=== PATIENT | female | born 1990 | race Caucasian/White ===

== ENCOUNTER 2020-10-17 01:27 | Outpatient (CLI) | payer BC, SELFPAY ==
[2020-10-17 19:22] LABS: SARS-CoV-2 RNA PCR Negative
== END 2020-10-17 01:28 | disposition home or self-care (01) ==
LOC: ANHCOVIDDT 01:28
PROVIDERS: Visit Provider Obstetrics & Gynecology
DX: Z01.812 Encounter for preprocedural laboratory examination (principal); Z20.822 Contact with and (suspected) exposure to COVID-19
CPT/HCPCS: C9803; U0003; U0005

== ENCOUNTER 2020-10-19 10:28 | Outpatient (CLI) | payer BC, SELFPAY ==
--- NOTE | 2020-10-19 11:30 | NEURO_ITS ---
Impression: # Complains of numbness of hands. # No Carpal Tunnel Syndrome. # No ulnar neuropathy. # Normal nerve conduction study. # Clinical correlation recommended. Nerve Conduction Studies Anti Sensory Summary Table Stim Site NR Peak (ms) P-T Amp (?V) Site1 Site2 Delta-P (ms) Dist (cm) Loco (m/s) Left Median Anti Sensory (2-3nd Digit) Wrist 2.3 55.7 Wrist 2-3nd Digit 2.3 14.0 61 Wrist 2.4 59.7 Wrist 2-3nd Digit 2.3 14.0 61 Right Median Anti Sensory (2-3nd Digit) Wrist 2.3 76.1 Wrist 2-3nd Digit 2.3 14.0 61 Wrist 2.5 63.7 Wrist 2-3nd Digit 2.3 14.0 61 Left Radial Anti Sensory (Base 1st Digit) Wrist 1.7 58.6 Wrist Base 1st Digit 1.7 0.0 Right Radial Anti Sensory (Base 1st Digit) Wrist 1.6 28.9 Wrist Base 1st Digit 1.6 0.0 Left Ulnar Anti Sensory (5th Digit) Wrist 2.3 67.6 Wrist 5th Digit 2.3 14.0 61 Right Ulnar Anti Sensory (5th Digit) Wrist 2.3 87.5 Wrist 5th Digit 2.3 14.0 61 Motor Summary Table Stim Site NR Onset (ms) O-P Amp (mV) Site1 Site2 Delta-0 (ms) Dist (cm) Loco (m/s) Left Median Motor (Abd Poll Brev) Wrist 2.3 6.3 Elbow Wrist 4.3 26.0 60 Elbow 6.6 4.2 Right Median Motor (Abd Poll Brev) Wrist 2.9 2.8 Elbow Wrist 3.8 24.0 63 Elbow 6.7 10.5 Left Ulnar Motor (Abd Dig Minimi) Wrist 2.2 11.2 A Elbow Wrist 4.1 25.0 61 A Elbow 6.3 10.4 Right Ulnar Motor (Abd Dig Minimi) Wrist 2.6 10.7 A Elbow Wrist 4.2 25.0 60 A Elbow 6.8 10.1 F Wave Studies NR F-Lat (ms) L-R F-Lat (ms) Left Median (Mrkrs) (Abd Poll Brev) 25.37 0.59 Right Median (Mrkrs) (Abd Poll Brev) 25.96 0.59 Left Ulnar (Mrkrs) (Abd Dig Min) 24.56 0.00 Right Ulnar (Mrkrs) (Abd Dig Min) 24.56 0.00 EMG Side Muscle Nerve Root Ins Act Fibs Amp Dur Recrt Comment Right 1stDorInt Ulnar C8-T1 Nml Nml Nml Nml Nml Right Ext Indicis Radial (Post Int) C7-8 Nml Nml Nml Nml Nml Right Ext Digitorum Radial (Post Int) C7-8 Nml Nml Nml Nml Nml Right BrachioRad Radial C5-6 Nml Nml Nml Nml Nml Right PronatorTeres Median C6-7 Nml Nml Nml Nml Nml Right Abd Poll Brev Median C8-T1 Nml Nml Nml Nml Nml Left 1stDorInt Ulnar C8-T1 Nml Nml Nml Nml Nml Left Ext Indicis Radial (Post Int) C7-8 Nml Nml Nml Nml Nml Left Ext Digitorum Radial (Post Int) C7-8 Nml Nml Nml Nml Nml Left BrachioRad Radial C5-6 Nml Nml Nml Nml Nml Left PronatorTeres Median C6-7 Nml Nml Nml Nml Nml Left Abd Poll Brev Median C8-T1 Nml Nml Nml Nml Nml MTDD
== END 2020-10-19 10:29 | disposition home or self-care (01) ==
PROVIDERS: PCP Family Medicine; Visit Provider Family Medicine
DX: R20.2 Paresthesia of skin (principal)
CPT/HCPCS: 95886; 95911

== ENCOUNTER 2020-10-20 02:12 | Day surgery (SDC) | payer BC, SELFPAY ==
[2020-10-16 15:24] VITALS: BMI 23.4
[2020-10-20] VITALS (9 sets, daily range): BP systolic 102–119; BP diastolic 53–70; PULSE 52–81; RESP 14–20; TEMP 36.1–36.6; O2SAT 99–100
[2020-10-20] MEDS: LACTATED RINGERS 1,000 ML 30 ML IV CONT ×2 (11:37→15:09)
[2020-10-20] MEDS: KETOROLAC 15 MG/ML VIAL (*BKC) IV PUSH (11:46)
[2020-10-20] MEDS: ACETAMINOPHEN 500 MG TABLET 1000 MG PO (11:46)
--- NOTE | 2020-10-20 12:48 | WPDHPUPDATE1 ---
History and Physical Update Update Date/Time: 10/20/20 12:48 History and Physical has been reviewed, including an updated exam of the patient. There are NO changes in the patient's condition. Risks, benefits, and alternatives have been discussed and questions answered. Patient agrees to proceed with procedure.
--- NOTE | 2020-10-20 13:04 | P.PNAN_ITS ---
Anes - Initial Pre Proc Eval Procedure: Operation Date: 10/20/20 13:00 Proposed Procedures p Diagnostic Laparoscopy - Mckenzie Mejia MD Date/Time: 10/20/20 13:04 Surgeon: Mckenzie Mejia MD Pre Op Diagnosis: Pelvic Pain Patient Data Age: 29 Gender: F Height: 5 ft Weight: 49.9 kg Last Vital Signs Temp 97.8 F 10/20/20 11:02 Pulse 81 10/20/20 11:02 Resp 20 10/20/20 11:02 BP 107/53 L 10/20/20 11:02 Pulse Ox 100 10/20/20 11:02 Allergies Allergy/AdvReac Type Severity Reaction Status Date / Time amoxicillin Allergy Unknown Rash Verified 10/20/20 12:35 Penicillins Allergy Unknown Nausea and Verified 10/20/20 12:35 Vomiting Home Medications Medication Instructions Recorded Confirmed Type albuterol 2 mcg INHALATION PRN PRN 10/16/20 10/20/20 History esomeprazole magnesium [Nexium] 40 mg PO PRN PRN 10/16/20 10/20/20 History hydrocodone-acetaminophen 1 tablet PO Q6H PRN 10/16/20 10/20/20 History ibuprofen 800 mg PO Q6H PRN 10/16/20 10/20/20 History Patient hx anesthesia problems: none Family hx anesthesia problems: none [facility] Past Medical History Medical History (Updated 10/20/20 @ 13:05 by Jared Card MD) Asthma Bipolar 1 disorder GERD (gastroesophageal reflux disease) Social History Social History Smoking packs per day: 0.5 Smoking cigarettes per day: 10.0 Years smoked: 16 Smoking pack-years: 8.00 Smoking status: Current every day smoker Tobacco type: cigarettes Substance use: current Substance use type: marijuana Last use: 10/14/20 Living arrangements: with family Spiritual care concerns: No Anes - Eval Final PreProcedure Day of Procedure 10/20/20 13:04 Patient weight: normal Heart: regular rate and rhythm Lungs: clear to auscultation Airway: Mallampati scale class II Neurological: alert and oriented Last oral intake: >/= 8 hours ASA classification: II Emergent: no Anesthetic plan: proceed Anesthesia type and monitoring: general ETT and standard monitoring Informed Consent: The patient's anesthetic plan and its attendant risks and benefits were discussed with the patient/family/POA. Questions were solicited and answers provided to the satisfaction of the patient/family/POA.
--- NOTE | 2020-10-20 14:21 | P.OP_ITS ---
Procedure Note - Detailed Date of procedure: 10/20/20 Pre-op diagnosis: Pelvic Pain Post-op diagnosis: same (Hemoperitoneum, adhesions) Procedure performed: Diagnostic laparoscopy, adhesiolysis Description of procedure: The patient was taken the operating room. She was prepped and draped in the dorsal lithotomy position after induction of general anesthesia. A 5 mm left upper quadrant incision was made in the abdominal skin with a scalpel. A 5 mm trocar was inserted the intra-abdominal cavity under direct visualization of the scope. A 5 mm left lower quadrant incision was made with the scalp on the abdominal skin and a 5 mm trocar was inserted the intra- abdominal cavity under direct visualization of the scope. A 5 mm infraumbilical incision was made with scalpel and a 5 mm trocar was inserted into the intra- abdominal cavity under direct visualization of the scope. The below findings were noted, hemoperitoneum. There was also some adhesions between the cecum and the anterior abdominal wall. These were taken down. This was done using cautery and sharp dissection. The pelvis was irrigated with copious amounts of normal saline. The pneumoperitoneum was reduced. The trocars were removed. The patient was taken recovery room stable condition. Sponge lap and needle counts were correct x2. Anesthesia: GETA Surgeon: Mckenzie Mejia MD Estimated blood loss (mL): 20 Drains: No Packing: No Complications: No immediate complications Condition: stable Disposition: PACU Findings: Hemoperitoneum, abdominal whose is between the cecum and the anterior abdominal wall.
[2020-10-20] MEDS: ONDANSETRON INJ 4 MG/2 ML VIAL IV PUSH (14:34)
[2020-10-20] MEDS: diphenhydrAMINE HCl INJ 50 MG/ML VIAL 12.5 MG IV PUSH (14:35)
[2020-10-20] MEDS: fentaNYL CITRATE INJ (*CRX) 100 MCG/2 ML VIAL 25 MCG IV PUSH ×2 (14:47→14:52)
[2020-10-20] MEDS: oxyCODONE HCL (*CRX) 5 MG TAB IR PO (15:48)
== END 2020-10-20 16:40 | disposition home or self-care (01) ==
PROVIDERS: PCP Family Medicine; Visit Provider Obstetrics & Gynecology
PROC: (CPT 49320; principal; 2020-10-20 13:00)
DX: R10.12 Left upper quadrant pain (principal); Z79.51 Long term (current) use of inhaled steroids; J45.909 Unspecified asthma, uncomplicated; F31.9 Bipolar disorder, unspecified; K21.9 Gastro-esophageal reflux disease without esophagitis; F17.210 Nicotine dependence, cigarettes, uncomplicated; K66.1 Hemoperitoneum; K66.0 Peritoneal adhesions (postprocedural) (postinfection)
CPT/HCPCS: 58660; A9270; J0330; J1100; J1200; J1885; J2250; J2405; J2704; J3010; J7120

== ENCOUNTER 2020-12-01 14:28 | Outpatient (CLI) | payer BC, SELFPAY ==
--- NOTE | ~2020-12-01 | XR_ITS ---
XR thoracic spine 3V DATE: 12/01/2020 15:19 INDICATION: Chronic upper back pain TECHNIQUE: AP, lateral, swimmer views COMPARISON: None FINDINGS: Minimal dextroscoliosis of the thoracic spine. No fracture or dislocation or bone destructi on. Thoracic pedicles are intact. Thoracic interspaces and vertebral endplates are preserved. No para spinal soft tissue thickening. IMPRESSION: Minimal dextroscoliosis Reviewed, dictated and finalized at location A. R INSTALLER PV IMPRESSION: Minimal dextroscoliosis
--- NOTE | ~2020-12-01 | XR_ITS ---
XR cervical spine 4-5V DATE: 12/01/2020 15:19 INDICATION: Chronic neck pain. No injury. TECHNIQUE: AP, lateral, swimmer's, open-mouth views COMPARISON: None FINDINGS: There is mild reversal of cervical curvature. There is mild levoscoliosis of the cervical a nd upper thoracic spine. C1 and C2 are normally aligned and the odontoid process is intact. No fracture or dislocation or locked facet or prevertebral soft tissue swelling. Cervical interspaces are preserved. IMPRESSION: Mild reversal of cervical curvature Reviewed, dictated and finalized at location A. O SURVEY WORKER
--- NOTE | ~2020-12-01 | CT_ITS ---
EXAMINATION: CT abdomen pelvis wo con EXAM DATE: 12/01/2020 15:06 INDICATION: Dysuria, pain with urination. Low abdominal pain. TECHNIQUE: Spiral CT of the abdomen and pelvis was performed without contrast. Axial, coronal and s agittal images were reviewed. The dose-length product (DLP) for this examination was 177.25 mGy-cm. The exposure was tailored according to patient size (auto mA exposure control), and iterative recons truction (ASIR) was used as additional dose reduction technique. Comparison is made to prior examinat ion from 04/11/2018. FINDINGS: The liver, spleen, adrenal glands and pancreas are unremarkable. Gallbladder is unremarkab le. No biliary obstruction. There are 3 punctate left calyceal stones and one punctate right calyce al stone. No ureteral stones or hydronephrosis. There is IUD which appears to be centrally located w ithin the endometrium, expected position. The bladder is unremarkable. There is no retroperitoneal or pelvic lymphadenopathy. There are no findings to suggest appendicitis. The stomach and small bowel are unremarkable. There is expected amount of colonic stool. No free intraperitoneal gas. The heart is normal in size. T here are no pericardial or pleural effusions. The lung bases are unremarkable. The bones are unrema rkable. IMPRESSION: 1. Punctate bilateral nephrolithiasis. 2. IUD in position. Reviewed, dictated and finalized at location B. RANCE CLAIM REPRESENTATIVE
== END 2020-12-01 14:29 | disposition home or self-care (01) ==
PROVIDERS: PCP Family Medicine; Visit Provider Family Medicine
DX: R10.9 Unspecified abdominal pain (principal); M41.84 Other forms of scoliosis, thoracic region; M53.82 Other specified dorsopathies, cervical region; N20.0 Calculus of kidney; Z97.5 Presence of (intrauterine) contraceptive device
CPT/HCPCS: 72050; 72072; 74176

== ENCOUNTER 2022-06-04 00:26 | Emergency (ER) | payer OTHER, SELFPAY ==
[2022-06-04] VITALS (26 sets, daily range): BP systolic 99–134; BP diastolic 51–88; PULSE 98; RESP 20; TEMP 36.3; O2SAT 97–100
--- NOTE | ~2022-06-04 | US_ITS ---
EXAMINATION: US pelvic complete w TV DATE: 06/04/2022 05:14 INDICATION: Pelvic pain. TECHNIQUE: Multiple transabdominal and transvaginal sonographic images of the pelvis were obtained. COMPARISON: CT abdomen and pelvis 06/04/2022 FINDINGS: TRANSABDOMINAL ULTRASOUND: The uterus measures 8.2 x 4.5 x 5.7 cm. There is no free fluid in the pelvis. TRANSVAGINAL ULTRASOUND: The endometrial complex measures 5 mm in thickness. There is an intrauterine device in expected posit ion. The right ovary measures 5.5 x 6.9 x 6.5 cm. There is a 6.1 cm hypoechoic mass in right ovary. T he left ovary measures 2.9 x 2.5 x 3.3 cm. There is normal vascular flow in the ovaries. IMPRESSION: 1. 6.1 cm hypoechoic mass in right ovary, probably a hemorrhagic cyst. Pelvis ultrasound is recommend ed in 6-12 weeks. 2. Intrauterine device in expected position. Reviewed, dictated and finalized at location A. IMPRESSION: 1. 6.1 cm hypoechoic mass in right ovary, probably a hemorrhagic cyst. Pelvis u ltrasound is recommended in 6-12 weeks. 2. Intrauterine device in expected position.
--- NOTE | ~2022-06-04 | CT_ITS ---
EXAMINATION: CT abdomen pelvis w con DATE: 06/04/2022 03:01 INDICATION: Low abdominal pain. TECHNIQUE: Computed tomography (CT) of the abdomen and pelvis was performed with 100 mL Omnipaque 350 intravenous contrast. Automated exposure control and iterative reconstruction technique were employe d. The dose-length product was 196.94 mGy-cm. COMPARISON: CT abdomen and pelvis 12/01/2020, ultrasound pelvis 06/04/2022 FINDINGS: The visualized portions of the lung bases demonstrate minimal atelectasis. No pleural effus ion. The heart size is normal. No pericardial effusion. The liver, gallbladder, spleen, pancreas, and adrenal glands are normal. There is a 10 mm cyst in right kidney. There is a 1 mm stone in right kid aristeo. There are two 1 mm stones in left kidney. There is a 5.5 cm mass in right ovary. There is an int rauterine device in expected position. The appendix is not visualized. There are no pathologically en larged lymph nodes. There is physiologic fluid in the pelvis. There is mild lumbar spondylosis. IMPRESSION: 1. 5.5 cm mass in right ovary, probably a hemorrhagic cyst. Pelvis ultrasound is recommended in 6-12 weeks. Reviewed, dictated and finalized at location A. IMPRESSION: 1. 5.5 cm mass in right ovary, probably a hemorrhagic cyst. Pelvis ultrasound i s recommended in 6-12 weeks.
[2022-06-04 01:01] LABS: Basophils Absolute Auto 0.1 K/mm3 (0.0-0.1); Basophils Percent Auto 0.5 % (0.2-1.2); Eosinophils Absolute Auto 0.4 K/mm3 (0-0.3); Eosinophils Percent Auto 2.5 % (0-4.4); Hematocrit 39.9 % (37.0-47.0); Hemoglobin 13.4 g/dL (12.0-15.0); Immature Granulocyte Absolute 0.04 K/mm3 (0.00-0.031); Immature Granulocyte Percent A 0.3 % (0-0.5); Lymphocytes Absolute Auto 4.13 K/mm3 (0.9-3.2); Lymphocytes Percent Auto 29.7 % (18.3-44.2); Mean Corpuscular HGB Conc 33.6 g/dl (32-36); Mean Corpuscular Volume 92.4 fl (80-100); Monocytes Absolute Auto 1.4 K/mm3 (0.1-0.6); Monocytes Percent Auto 10.4 % (2.6-8.5); Neutrophils Absolute Auto 7.9 K/mm3 (1.3-6.7); Neutrophils Percent Auto 56.6 % (45.5-73.1); Platelet Count Result 278 k/mm3 (150-375); Red Blood Count 4.32 M/mm3 (4.2-5.4); White Blood Count 13.9 K/mm3 (4.5-10.0)
[2022-06-04 01:08] LABS: Appearance Urine Clear (Clear); Bilirubin Urine Negative (Negative); Color Urine Yellow (Yellow); Glucose Urine UA Negative (Negative); Ketones Urine Negative (Negative); Leukocyte Esterase Ur Negative LEU/UL (Negative); Nitrate Urine Negative (Negative); Protein Urine Negative (Negative); Specific Grav Ur 1.025 (1.001-1.035); Urobilinogen Urine 0.2 mg/dL (<2.0)
[2022-06-04 01:12] LABS: Alanine Aminotransferase 13 U/L (6-35); Albumin Level 4.6 g/dL (3.5-5.1); Alkaline Phosphatase 59 U/L (38-126); Anion Gap 5 mmol/L (8-16); Aspartate Amino Transferase 20 U/L (14-36); Bilirubin,Total 0.3 mg/dL (0.2-1.3); Blood Urea Nitrogen 9 mg/dL (7-17); Calcium 8.9 mg/dL (8.4-10.2); Carbon Dioxide 24 mmol/L (22-30); Chloride 104 mmol/L (98-107); Estimated CRCL calculation 71 ml/min; Estimated Glomerular Filt Rate > 60; Glucose 94 mg/dL (65-110); Lipase 64 U/L (23-300); Potassium 3.5 mmol/L (3.4-5.0); Sodium 133 mmol/L (137-145)
[2022-06-04 01:13] LABS: Bacteria Urine Trace /hpf; Mucus Urine Rare /lpf; RBC Urine 0-2 /hpf (0-2); Squamous Epithelial Cell Urine Few /hpf (Few); WBC Urine 0-3 /hpf
[2022-06-04 01:16] LABS: Add Urine Microscopic? YES; Blood Urine Trace (Negative)
[2022-06-04] MEDS: SODIUM CHLORIDE 0.9% IV 1,000 ML 999 ML IV CONT (02:37)
[2022-06-04] MEDS: MORPHINE SULFATE (*CRX) 4 MG/ML INJ IV PUSH (02:38)
[2022-06-04] MEDS: ONDANSETRON INJ 4 MG/2 ML VIAL IV PUSH (02:38)
--- NOTE | 2022-06-04 02:51 | ED.GENADULT ---
HPI - General Adult General Chief complaint: Abdominal Pain Stated complaint: ABD Pain Time Seen by Provider: 06/04/22 01:52 History of Present Illness HPI narrative: Patient 31-year-old female who presents the emergency department with chief complaint of abdominal pain. The patient reports that for the last couple days she has had a cramping-like feeling in her abdomen the patient reports is not improved by anything nor is it worsened by anything. Patient reports to some nausea reports no diarrhea or vomiting. The patient states that she had some shakiness reports that and felt initially like a cramping-like feeling. Patient reports prior surgical history significant for a laparoscopy for possible endometriosis. The patient has a Mirena. Related Data Home Medications Medication Instructions Recorded Confirmed albuterol 90 mcg/actuation aerosol 2 mcg inhalation PRN PRN SOB 10/16/20 10/20/20 inhaler esomeprazole magnesium 40 mg 40 mg PO PRN PRN Indigestion 10/16/20 10/20/20 capsule,delayed release (Nexium) hydrocodone 5 mg-acetaminophen 325 1 tablet PO Q6H PRN Pain 10/16/20 10/20/20 mg tablet ibuprofen 200 mg tablet 800 mg PO Q6H PRN Pain 10/16/20 10/20/20 Allergies Allergy/AdvReac Type Severity Reaction Status Date / Time amoxicillin Allergy Unknown Rash Verified 06/04/22 00:43 Penicillins Allergy Unknown Nausea and Verified 06/04/22 00:43 Vomiting Review of Systems Review of Systems: A 10 system review of systems was completed on the patient and is negative except for what is stated in the HPI. Nursing and ancillary documentation was reviewed. [facility] Past Medical History Medical History Asthma Bipolar 1 disorder GERD (gastroesophageal reflux disease) Social History Social History Smoking packs per day: 0.5 Smoking cigarettes per day: 10.0 Years smoked: 16 Smoking pack-years: 8.00 Smoking status: Current every day smoker Tobacco type: cigarettes Substance use: current Substance use type: marijuana Last use: 10/14/20 Spiritual care concerns: No Exam Narrative: GENERAL: Well-appearing, well-nourished, and in no acute distress. HEAD: Normocephalic, atraumatic. EYES: PERRLA and EOMI. ENT: Nares clear, no rhinorrhea or epistaxis. Mucous membranes moist. NECK: Supple. CHEST: Clear to auscultation. No respiratory distress. HEART: Regular rate and rhythm. No murmur heard. Normal peripheral pulses. ABDOMEN: Soft, mild tenderness to palpation in the lower quadrants of the abdomen, nondistended, normal active bowel sounds. EXTREMITIES: Normal range of motion. No edema. SKIN: Warm, dry, no rash. NEURO: No focal deficits. Alert and oriented x3. PSYCH: Normal mood and affect. Course Vital Signs Vital signs: Vital Signs Temperature 36.3 C L 06/04/22 00:40 Pulse Rate 98 06/04/22 00:40 Respiratory Rate 20 06/04/22 00:40 Blood Pressure 120/88 06/04/22 00:40 Pulse Oximetry 100 06/04/22 00:40 Oxygen Delivery Room Air 06/04/22 00:40 Temperature 36.3 C L 06/04/22 00:40 Pulse Rate 98 06/04/22 00:40 Respiratory Rate 20 06/04/22 00:40 Blood Pressure 99/60 L 06/04/22 06:31 Pulse Oximetry 100 06/04/22 06:31 Oxygen Delivery Room Air 06/04/22 00:40 Medical Decision Making Vital Signs Vital Signs: Vital Signs Temperature 36.3 C L 06/04/22 00:40 Pulse Rate 98 06/04/22 00:40 Respiratory Rate 20 06/04/22 00:40 Blood Pressure 120/88 06/04/22 00:40 Pulse Oximetry 100 06/04/22 00:40 Oxygen Delivery Room Air 06/04/22 00:40 Temperature 36.3 C L 06/04/22 00:40 Pulse Rate 98 06/04/22 00:40 Respiratory Rate 20 06/04/22 00:40 Blood Pressure 99/60 L 06/04/22 06:31 Pulse Oximetry 100 06/04/22 06:31 Oxygen Delivery Room Air 06/04/22 00:40 Lab Data Result diagrams: 06/04/22 00:
== END 2022-06-04 06:52 | disposition home or self-care (01) ==
PROVIDERS: Physician Assistant; Emergency Provider Emergency Medicine; PCP Family Medicine
DX: N83.201 Unspecified ovarian cyst, right side (principal); R10.30 Lower abdominal pain, unspecified; J45.909 Unspecified asthma, uncomplicated; F31.9 Bipolar disorder, unspecified; K21.9 Gastro-esophageal reflux disease without esophagitis
CPT/HCPCS: 36415; 74177; 76830; 76856; 80053; 81001; 81025; 83690; 85025; 96361; 96374; 96375; 99284; J2270; J2405; J7030; Q9967

== ENCOUNTER 2022-06-13 00:32 | Day surgery (SDC) | payer OTHER, SELFPAY ==
[2022-06-11 15:50] VITALS: BMI 24.8
--- NOTE | 2022-06-11 15:51 | SUR.PREOP ---
Report to the Outpatient Waiting Room, entrance under the green pavilion located off [facility], at time 1030 on date _06/13/22 . OR Time: _1230 . - You and your visitor will be asked to self-screen and do not enter if you have any COVID symptoms. - Only one visitor and NO children visitors are allowed at this time. - The patient visitor is requested to leave or wait in car when not with patient due to restrictions. - A mask is required within the hospital. Patients may have clear liquids (water, carbonated beverages, clear teas, apple juice) until 3 hours prior to surgery with a maximum of 20 ounces. - No food from midnight until time of surgery - Infants may have breast milk until 4 hours before surgery, infant formula 6 hours prior to surgery. - Children will be allowed to drink immediately following surgery. If applicable, please bring a bottle or sippy cup to assist with drinking. Juice, water, soda, and popsicles are readily available. For infants on formula, please bring formula the day of surgery. Pacifiers are allowed. Take the following medications with a SIP of water the morning of surgery: ___pain med if needed Medications to discontinue per physician n/a Date to take last dose__n/a Please no make-up, nail uzbek, hairspray, perfume, deodorant, or body powder the day of surgery. No jewelry (including any body piercings) or valuables the day of surgery, leave them at home. Please take a shower or bath the night before, or the morning of, surgery with an antibacterial soap. Wear comfortable, loose fitting clothing. Children are encouraged to wear pajamas. - Jewelry must be removed prior to entering the operating room. Rings and piercings that are not removed may be cut off. - The hospital will not accept responsibility for valuables. - Please leave all valuables, including medications, at home the day of surgery. If you are going home after surgery, a licensed paratransit driver must drive you home. - NO public transportation without another adult. - We recommend that an adult stay with you for 24 hours following discharge. - We also recommend that you do not drive, make important decision, drink alcoholic beverages, or take any drugs that were not prescribed by your health care provider for at least 24 hours after your discharge time. For Pediatric surgeries, we recommend two adults accompany the child home (only one inside the building at this time). Follow any additional instructions given to you from your surgeon. If you or anyone in your household have experienced Covid symptoms in the past week, please notify your surgeon or the nurse liaison at the phone number below for possible testing. Telephone instructions given to cami arnold and asked if any additional questions and then verbalized understanding. Patient advised to call surgeon office or pre surgery nurse liaison [phone] if any additional questions.
[2022-06-13] VITALS (10 sets, daily range): BP systolic 103–139; BP diastolic 55–73; PULSE 54–85; RESP 12–20; TEMP 36.3–36.9; O2SAT 95–100
[2022-06-13] MEDS: ACETAMINOPHEN 500 MG TABLET 1000 MG PO (11:14)
[2022-06-13] MEDS: KETOROLAC 15 MG/ML VIAL (*BKC) IV PUSH (11:20)
[2022-06-13] MEDS: LACTATED RINGERS 1,000 ML 30 ML IV CONT ×2 (11:30→14:22)
--- NOTE | 2022-06-13 12:42 | P.PNAN_ITS ---
Anes - Initial Pre Proc Eval Procedure: Operation Date: 06/13/22 12:30 Proposed Procedures p Laparoscopic Right Ovarian Cystectomy - Mckenzie Mejia MD Date/Time: 06/13/22 12:42 Surgeon: Mckenzie Mejia MD Pre Op Diagnosis: hemorrhagic cyst right ovary Patient Data Age: 31 Gender: F Height: 1.52 m Weight: 52.7 kg Last Vital Signs Temp 36.9 C 06/13/22 11:00 Pulse 70 06/13/22 11:00 Resp 16 06/13/22 11:00 BP 112/69 06/13/22 11:00 Pulse Ox 99 06/13/22 11:00 O2 Del Method Room Air 06/13/22 11:00 Allergies Allergy/AdvReac Type Severity Reaction Status Date / Time amoxicillin Allergy Intermediate Rash Verified 06/13/22 11:49 Penicillins Allergy Intermediate Rash Verified 06/13/22 11:49 Home Medications Medication Instructions Recorded Confirmed Type albuterol 90 mcg/actuation aerosol 2 mcg inhalation PRN PRN SOB 10/16/20 06/13/22 History inhaler hydrocodone 5 mg-acetaminophen 325 1 tablet PO Q6H PRN pain 3 days 06/04/22 06/13/22 Rx mg tablet #12 tabs ibuprofen 800 mg tablet 800 mg PO TID PRN pain #30 tabs 06/04/22 06/13/22 Rx Patient hx anesthesia problems: none Family hx anesthesia problems: none Results Review: All pre-operative results and documents have been reviewed as part of the pre- operative evaluation. [facility] Past Medical History Medical History Asthma Bipolar 1 disorder GERD (gastroesophageal reflux disease) Social History Social History Smoking packs per day: 0.5 Smoking cigarettes per day: 10.0 Years smoked: 16 Smoking pack-years: 8.00 Smoking status: Current every day smoker Tobacco type: cigarettes Additional smoking assessment comments: 1/2 ppd x 17 years Alcohol use details: 2 drinks a month Substance use: current Substance use type: marijuana Other substance usage details: smokiing on occasion Last use: 10/14/20 Living arrangements: with family Spiritual care concerns: No Anes - Eval Final PreProcedure Day of Procedure 06/13/22 12:42 Patient weight: normal Heart: regular rate and rhythm Lungs: clear to auscultation Airway: Mallampati scale class II Neurological: alert and oriented Last oral intake: >/= 8 hours ASA classification: III Emergent: no Anesthetic plan: proceed Anesthesia type and monitoring: general ETT and standard monitoring Results Review: All pre-operative results and documents have been reviewed as part of the pre- operative evaluation. Informed Consent: The patient's anesthetic plan and its attendant risks and benefits were discussed with the patient/family/POA. Questions were solicited and answers provided to the satisfaction of the patient/family/POA.
--- NOTE | 2022-06-13 12:57 | WPDHPUPDATE1 ---
History and Physical Update Update Date/Time: 06/13/22 12:57 History and Physical has been reviewed, including an updated exam of the patient. There are NO changes in the patient's condition. Risks, benefits, and alternatives have been discussed and questions answered. Patient agrees to proceed with procedure.
--- NOTE | 2022-06-13 13:03 | PM.IMHP ---
H&P: HPI History of Present Illness Date/Time: 06/13/22 13:03 Chief Complaint: Pelvic pain Narrative: this patient is a 31-year-old female with a 4 cm hemorrhagic cyst and pelvic pain. We have agreed to perform ovarian cystectomy. Laparoscopic ovarian cystectomy. She understands that surgery may result in injuries that cause prolonged hospitalization, severe illness, more surgery. She understands the risk of hemorrhage infection. Review of Systems Review of Systems: All systems reviewed & are unremarkable except as noted in HPI and below Constitutional: Constitutional: Denies chills, Denies fatigue, Denies fever(s) and Denies weakness Eyes: Eyes: Denies blurry vision, Denies change in vision, Denies loss of peripheral vision, Denies loss of vision, Denies other visual disturbances and Denies eye pain ENT: Denies vertigo, Denies dizziness, Denies hearing loss, Denies mouth pain, Denies nasal obstruction, Denies neck mass and Denies neck pain Cardiovascular: Cardiovascular: Denies chest pain, Denies diaphoresis, Denies syncope, Denies leg edema and Denies dyspnea Respiratory: Respiratory: Denies chest congestion, Denies cough, Denies hemoptysis, Denies dyspnea and Denies wheezing Gastrointestinal: Gastrointestinal: Denies abdominal pain, Denies constipation, Denies diarrhea, Denies nausea and Denies vomiting Genitourinary: Genitourinary: Denies hematuria, Denies change in libido, Denies nocturia, Denies genital lesions, Denies flank pain and Denies urinary urgency Musculoskeletal: Musculoskeletal: Denies abnormal gait, Denies back pain, Denies myalgias, Denies arthralgias, Denies joint swelling, Denies muscle weakness and Denies neck pain Integumentary/Breasts: Skin/Breast: Denies swelling, Denies breast pain, Denies breast mass, Denies dry skin, Denies nipple discharge, Denies unusual bruising and Denies jaundice Neurologic: Denies Neuro-related abnormal movements, Denies Abnormal speech present, Denies abnormal gait, Denies behavioral changes, Denies confusion, Denies vertigo, Denies dizziness, Denies syncope, Denies loss of vision, Denies memory loss, Denies convulsions and Denies weakness Psychiatric: Psychiatric: Denies abnormal sleep pattern, Denies behavioral changes, Denies change in libido, Denies confusion, Denies depression, Denies anhedonia and Denies memory loss Endocrine: Endocrine: Reports no additional endocrine complaints, Denies change in libido and Denies fatigue Hematologic/Lymphatic: Hematologic/Lymphatic: Reports no additional hematologic/lymphatic complaints Allergic/Immunologic: Allergic/Immunologic: Reports no additional allergic/immunologic complaints and Denies wheezing PMFSH Past Medical History Medical History Asthma Bipolar 1 disorder GERD (gastroesophageal reflux disease) Social History Social History Smoking packs per day: 0.5 Smoking cigarettes per day: 10.0 Years smoked: 16 Smoking pack-years: 8.00 Smoking status: Current every day smoker Tobacco type: cigarettes Additional smoking assessment comments: 10/07 ppd x 17 years Alcohol use details: 2 drinks a month Substance use: current Substance use type: marijuana Other substance usage details: smokiing on occasion Last use: 10/14/20 Living arrangements: with family Spiritual care concerns: No Meds Home Medications and Allergies Home Medications Medication Instructions Recorded Confirmed Type albuterol 90 mcg/actuation aerosol 2 mcg inhalation PRN PRN SOB 10/16/20 06/13/22 History inhaler hydrocodone 5 mg-acetaminophen 325 1 tablet PO Q6H PRN pain 3 days 06/04/22 06/13/22 Rx mg tablet #12 tabs ibuprofen 800 mg tablet 800 mg PO TID PRN pain #30 tabs 06/04/22 06/13/22 Rx Allergies Allergy/AdvReac Type Severity Reaction Status Date / Time amoxicillin Allergy Intermediate Rash Verifi
--- NOTE | 2022-06-13 14:19 | P.OP_ITS ---
Procedure Note - Detailed Date of Procedure 06/13/22 Pre-op Diagnosis hemorrhagic cyst right ovary Post-op Diagnosis Same Procedure Performed Diagnostic laparoscopy Surgeon Mckenzie Mejia MD Anesthesia General Indications Pelvic pain Findings 5 cm right ovarian cyst with hemorrhagic debris within the capsule. Normal pelvis otherwise. Description of Procedure The patient was taken to the operating room. She was prepped and draped in the dorsal lithotomy position after induction general anesthesia. A 5 mm incision was made with a scalpel on the abdominal skin in the left upper quadrant of the abdomen. A 5 mm trocar was inserted into the intra-abdominal cavity under direct visualization the scope. In the same fashion a 5 mm left lower quadrant trocar was inserted and a 5 mm infraumbilical trocar was inserted. Using sharp and blunt dissection and cautery the cyst was open on the right ovary. The hemorrhagic debris was removed from the ovary. Some of the ovarian capsule was dissected off. Most the capsule was adherent and densely scarred to the ovary could not be removed. In the disrupted edges and disrupted surfaces that were bleeding were cauterized. Irrigation was used to clean up the b leeding. Suction and irrigation were used to clean out the pelvis. The pelvis was examined and appeared normal otherwise. The pelvis was irrigated. The pneumoperitoneum was reduced. The trocars were removed. Skin was closed with subcuticular 4 micro. The patient's incisions were covered with Dermabond. She was taken recovery room in stable condition. Sponge lap and needle counts were correct x2. Estimated Blood Loss 5 Pathology Yes Complications No immediate complications Condition Stable Disposition Same day
[2022-06-13] MEDS: fentaNYL CITRATE INJ (*CRX) 100 MCG/2 ML VIAL 25 MCG IV PUSH ×4 (14:35→15:03)
[2022-06-13] MEDS: ONDANSETRON INJ 4 MG/2 ML VIAL IV PUSH (15:05)
[2022-06-13] MEDS: SCOPOLAMINE 1.5 MG PATCH TRANSDERM (16:02)
[2022-06-13] MEDS: diphenhydrAMINE HCl INJ 50 MG/ML VIAL 25 MG IV PUSH (16:03)
[2022-06-13] MEDS: oxyCODONE HCL (*CRX) 5 MG TAB IR PO (16:53)
== END 2022-06-13 17:02 | disposition home or self-care (01) ==
PROVIDERS: PCP Family Medicine; Visit Provider Obstetrics & Gynecology
PROC: (CPT 49320; principal; 2022-06-13 12:30)
DX: N83.201 Unspecified ovarian cyst, right side (principal); R10.2 Pelvic and perineal pain; J45.909 Unspecified asthma, uncomplicated; F31.9 Bipolar disorder, unspecified; K21.9 Gastro-esophageal reflux disease without esophagitis; Z79.51 Long term (current) use of inhaled steroids; F17.210 Nicotine dependence, cigarettes, uncomplicated; F12.90 Cannabis use, unspecified, uncomplicated
CPT/HCPCS: 58662; 88305; A9270; J0690; J1100; J1170; J1200; J1885; J2250; J2405; J2704; J2710; J3010; J7120

== ENCOUNTER 2023-06-03 08:55 | Emergency (ER) | payer OTHER, SELFPAY ==
--- NOTE | ~2023-06-03 | XR_ITS ---
Left Knee Technique: AP, lateral, and oblique views were obtained. Clinical History: Pain Findings: No fracture or dislocation is seen. Osseous alignment is anatomic. Joint spaces are preserv ed without degenerative or erosive change. Soft tissues are unremarkable. No joint effusion is seen. Impression: Unremarkable left knee radiographs. Reviewed, dictated and finalized at location . Impression: Unremarkable left knee radiographs.
--- NOTE | ~2023-06-03 | XR_ITS ---
AP view of the pelvis and AP and lateral views of the left hip Clinical history: Pain Findings: No acute fracture or dislocation is seen. Osseous alignment is anatomic. Bilateral hip and SI joint spaces are preserved. Soft tissues are unremarkable. IUD in place. Impression: No significant abnormality is seen. Reviewed, dictated and finalized at location . Impression: No significant abnormality is seen.
[2023-06-03 08:59] VITALS: BP 120/84; PULSE 95; RESP 16; TEMP 36.6; O2SAT 100
--- NOTE | 2023-06-03 09:48 | ED.LOWEXIN ---
HPI - Extremity Injury (Lower) General Chief Complaint: Extremity Injury, Lower Stated Complaint: FALL DOWN STAIRS Time Seen by Provider: 06/03/23 09:28 Source: patient Mode of arrival: ambulatory Limitations: no limitations History of Present Illness HPI Narrative: This is a 32 year old female that presents to the ER left hip pain. Ongoing over the last couple of days. Reports she slipped and fell down about 3-4 steps. Reports landing on her left side. She did not hit her head or lose consciousness. Reports since she has had left hip and knee pain. Worse with ambulation and relieved with rest. She went to work yesterday which worsened her pain and prompted her to be seen. Denies numbness or weakness. Related Data Home Medications Medication Instructions Recorded Confirmed albuterol 90 mcg/actuation aerosol 2 mcg inhalation PRN PRN SOB 10/16/20 06/13/22 inhaler Allergies Allergy/AdvReac Type Severity Reaction Status Date / Time amoxicillin Allergy Intermediate Rash Verified 06/03/23 08:58 Penicillins Allergy Intermediate Rash Verified 06/03/23 08:58 Review of Systems Review of Systems: CONSTITUTIONAL: Denies fever MUSCULOSKELETAL: Reports joint pain, and myalgia. NEUROLOGIC: Denies numbness, or weakness. All systems reviewed & are unremarkable except as noted in HPI and below PMFSH Past Medical History Medical History Asthma Bipolar 1 disorder GERD (gastroesophageal reflux disease) Social History Social History Smoking packs per day: 0.5 Smoking cigarettes per day: 10.0 Years smoked: 16 Smoking pack-years: 8.00 Smoking status: Current every day smoker Tobacco type: cigarettes Additional smoking assessment comments: 1/2 ppd x 17 years Alcohol use details: 2 drinks a month Substance use: current Substance use type: marijuana Other substance usage details: smokiing on occasion Last use: 10/14/20 Living arrangements: with family Spiritual care concerns: No Exam Narrative: GENERAL: Well-appearing, well-nourished, and in no acute distress. HEAD: Normocephalic, atraumatic. EYES: EOMI. CHEST: Clear to auscultation. No respiratory distress. No wheezes rales or rhonchi HEART: Regular rate and rhythm. No murmur heard. Normal peripheral pulses. EXTREMITIES: Normal range of motion. No edema, erythema or obvious deformity. Normal DP pulse. Normal sensation. SKIN: Warm, dry, no rash. NEURO: No focal deficits. Alert and oriented x3. PSYCH: Normal mood and affect Course Course Emergency Course: Patient was updated on workup and agrees with plan of care Vital Signs Vital signs: Vital Signs Temperature 97.8 F 06/03/23 08:59 Pulse Rate 95 06/03/23 08:59 Respiratory Rate 16 06/03/23 08:59 Blood Pressure 120/84 06/03/23 08:59 Pulse Oximetry 100 06/03/23 08:59 Temperature 97.8 F 06/03/23 08:59 Pulse Rate 95 06/03/23 08:59 Respiratory Rate 16 06/03/23 08:59 Blood Pressure 120/84 06/03/23 08:59 Pulse Oximetry 100 06/03/23 08:59 MDM - Extremity Injury (Lower) MDM Narrative Medical decision making narrative: Patient presents to the emergency department after an injury a couple of days ago with left hip and knee pain. Patient is neurovascularly intact. She did not hit her head or lose consciousness. Bedside test is negative. X-rays of the left hip and knee are without acute osseous abnormalities. Patient placed in Terrence wrap and given crutches. Instructed to rest, ice and [id number] pain medication as needed. She is to follow-up with primary provider. She was given warnings to return to the ER Differential Diagnosis Differential diagnosis: Likely acute internal derangement of knee and fracture of hip Lab Data Attestation: I reviewed the patient's lab results. Labs: UCG Bedside Result N
== END 2023-06-03 10:57 | disposition home or self-care (01) ==
PROVIDERS: Emergency Provider Physician Assistant; PCP Family Medicine
DX: S70.12XA Contusion of left thigh, initial encounter (principal); M23.92 Unspecified internal derangement of left knee; S89.92XA Unspecified injury of left lower leg, initial encounter; J45.909 Unspecified asthma, uncomplicated; K21.9 Gastro-esophageal reflux disease without esophagitis; F17.210 Nicotine dependence, cigarettes, uncomplicated; W10.9XXA Fall (on) (from) unspecified stairs and steps, initial encounter
CPT/HCPCS: 73502; 73564; 81025; 99284

== ENCOUNTER 2023-11-23 04:32 | Emergency (ER) | payer OTHER, SELFPAY ==
--- NOTE | ~2023-11-23 | CT_ITS ---
EXAMINATION: CT abdomen pelvis w con DATE: 11/23/2023 05:58 INDICATION: Abdominal pain, nausea, vomiting and diarrhea TECHNIQUE: Computed tomography (CT) of the abdomen and pelvis was performed with 100 mL Omnipaque-350 intravenous contrast. Automated exposure control and iterative reconstruction technique were employe d. The dose-length product was 184.49 mGy-cm. COMPARISON: 06/04/2022 FINDINGS: Lung bases are clear. Heart size is normal. No pericardial or pleural effusion. Liver, gallbladder, s pleen, pancreas, bilateral adrenal glands and left kidney are normal. 9 mm right renal cyst. Unchange d 2 mm nonobstructing stone in upper pole calyx of the right kidney. There is small amount of fluid s cattered throughout the colon consistent with nonspecific diarrhea. Bowels are otherwise unremarkable with no obstruction. Normal appendix. Bladder is decompressed uterus are unremarkable. 2.2 cm right ovarian cyst/follicle. No free intraperitoneal gas or fluid. No pathologically enlarged abdominal or pelvic lymphadenopathy. Bones are unremarkable. IMPRESSION: 1. Small amount of colonic fluid consistent with nonspecific diarrhea. No other acute intra-abdominal /pelvic process. 2. 2 mm nonobstructing right renal stone. Reviewed, dictated and finalized at location A. [facility] WELDER IMPRESSION: 1. Small amount of colonic fluid consistent with nonspecific diarrhea. No other acute intra-abdominal/pelvic process. 2. 2 mm nonobstructing right renal stone.
[2023-11-23 04:30] VITALS: BP 132/89; PULSE 70; RESP 18; TEMP 36.8; O2SAT 100
[2023-11-23 05:06] LABS: Alanine Aminotransferase 19 U/L (6-35); Albumin Level 4.8 g/dL (3.5-5.1); Alkaline Phosphatase 75 U/L (38-126); Anion Gap 10 mmol/L (8-16); Aspartate Amino Transferase 26 U/L (14-36); Bilirubin,Total 1.1 mg/dL (0.2-1.3); Blood Urea Nitrogen 16 mg/dL (7-17); Calcium 9.8 mg/dL (8.4-10.2); Carbon Dioxide 19 mmol/L (22-30); Chloride 108 mmol/L (98-107); Estimated CRCL calculation 70 ml/min; Estimated Glomerular Filt Rate > 60; Glucose 140 mg/dL (65-110); Lipase 192 U/L (23-300); Potassium 3.6 mmol/L (3.4-5.0); Sodium 137 mmol/L (137-145)
[2023-11-23 05:25] LABS: Basophils Absolute Auto 0.1 K/mm3 (0.0-0.1); Basophils Percent Auto 0.4 % (0.2-1.2); Eosinophils Absolute Auto 0.2 K/mm3 (0-0.3); Eosinophils Percent Auto 0.8 % (0-4.4); Hematocrit 44.6 % (37.0-47.0); Hemoglobin 15.2 g/dL (12.0-15.0); Immature Granulocyte Absolute 0.16 K/mm3 (0.00-0.031); Immature Granulocyte Percent A 0.7 % (0-0.5); Lymphocytes Absolute Auto 0.71 K/mm3 (0.9-3.2); Lymphocytes Percent Auto 2.9 % (18.3-44.2); Mean Corpuscular HGB Conc 34.1 g/dl (32-36); Mean Corpuscular Hemoglobin 30.5 pg (26-34); Mean Corpuscular Volume 89.6 fl (80-100); Mean Platelet Volume 10.6 fl (7.4-10.4); Monocytes Absolute Auto 1.6 K/mm3 (0.1-0.6); Monocytes Percent Auto 6.6 % (2.6-8.5); Neutrophils Absolute Auto 21.8 K/mm3 (1.3-6.7); Neutrophils Percent Auto 88.6 % (45.5-73.1); Platelet Count Result 321 k/mm3 (150-375); Red Blood Count 4.98 M/mm3 (4.2-5.4); Red Cell Distribution Width 12.8 % (11.5-14.5); White Blood Count 24.5 K/mm3 (4.5-10.0)
[2023-11-23] MEDS: ONDANSETRON INJ 4 MG/2 ML VIAL IV PUSH (05:25)
[2023-11-23] MEDS: SODIUM CHLORIDE 0.9% IV 1,000 ML 999 ML IV CONT ×2 (05:25→05:59)
[2023-11-23 05:30] VITALS: BP 120/84; PULSE 61; RESP 16; O2SAT 100
--- NOTE | 2023-11-23 05:33 | ED.NAVMDI ---
HPI - Nausea/Vomiting/Diarrhea General Chief complaint: Nausea/Vomiting/Diarrhea Stated complaint: nausea, vomiting Source: patient Limitations: no limitations History of Present Illness HPI Narrative: Patient is a 33-year-old female presents to the emergency department complaining of nausea and vomiting and diarrhea and is cramping abdominal discomfort. Patient states that she woke up vomiting at approximately 1:30 a.m. this morning was feeling well prior to going to bed. Patient states the vomit looks like stomach acid. Patient admits to multiple episodes of nonbloody diarrhea. Patient admits to current nausea. Patient states that she also developed abdominal cramping discomfort in the middle of her abdomen with the vomiting, states that the pain comes and goes, denies anything that makes the pain better or worse, Ms. that is mild, has not tried anything for the pain, is to history of this pain in the past when she has had food poisoning. Patient is to her son being sick contact having similar symptoms on Friday. Patient denies any abnormal food consumption recent hospitalization or recent travel. Patient denies fever, sore throat, nasal congestion, chest pain, difficulty breathing, cough, urinary discomfort, hematuria, history kidney stones, melena, hematochezia, numbness, weakness, recent injuries, recent illness. Patient admits to daily cannabis use. Related Data Home Medications Medication Instructions Recorded Confirmed albuterol 90 mcg/actuation aerosol 2 mcg inhalation PRN PRN SOB 10/16/20 06/13/22 inhaler Allergies Allergy/AdvReac Type Severity Reaction Status Date / Time amoxicillin Allergy Intermediate Rash Verified 06/03/23 08:58 Penicillins Allergy Intermediate Rash Verified 06/03/23 08:58 Review of Systems Review of Systems: A 10 system review of systems was completed on the patient and is negative except for what is stated in the HPI. Nursing and ancillary documentation was reviewed. [facility] Past Medical History Medical History Asthma Bipolar 1 disorder GERD (gastroesophageal reflux disease) Social History Social History Smoking packs per day: 0.5 Smoking cigarettes per day: 10.0 Years smoked: 16 Smoking pack-years: 8.00 Smoking status: Current every day smoker Tobacco type: cigarettes Additional smoking assessment comments: 1/2 ppd x 17 years Alcohol use details: 2 drinks a month Substance use: current Substance use type: marijuana Other substance usage details: smokiing on occasion Last use: 10/14/20 Living arrangements: with family Spiritual care concerns: No Comments At time of signature, I have reviewed and agree with nursing past medical, surgical, social and family history unless otherwise noted. Please see the nursing chart for further information. There is no relevant family history pertinent to the presenting complaint. Exam Narrative: CONST: Mild acute distress complaining of nausea and retching while was in the room. Well nourished. HENMT: Head is normocephalic and atraumatic. Tacky mucous membranes. No posterior oropharynx erythema. EYES: No conjunctival icterus, injection, or pallor. PERRL. NECK: No meningeal signs. RESP: Able to speak in full sentences. Normal respiratory effort. CTAB. CARDIO: Regular rate. Regular rhythm. 2+ DP and radial pulses bilaterally. GI: Nondistended. Soft. Mild tenderness palpation in the periumbilical region. No rebound or guarding or rigidity. No palpable masses or hernias. Negative Blankenship sign. No McBurney's point tenderness palpation. : No CVA tenderness to palpation. SKIN: No rashes or lesions noted on exposed skin. NEURO: Oriented x3. Moves all extremities. EXTREM/MSK/BACK: No pedal edema. PSYCH: Normal affect. Course Vital Signs Vital signs: Vital Signs Temperature 98.3 F 0
[2023-11-23] MEDS: HALOPERIDOL LACTATE 5 MG/ML VIAL IV PUSH (05:39)
[2023-11-23 05:40] LABS: Appearance Urine Cloudy (Clear); Bacteria Urine 1+ /hpf; Bilirubin Urine 2+ (Negative); Blood Urine Negative (Negative); Color Urine Dark Yellow (Yellow); Glucose Urine UA Negative (Negative); Ketones Urine 1+ mg/dL (Negative); Leukocyte Esterase Ur Trace LEU/UL (Negative); Need Manual Microscopic Reviewed; Nitrate Urine Negative (Negative); Protein Urine 1+ mg/dL (Negative); Specific Grav Ur 1.035 (1.001-1.035); Squamous Epithelial Cell Urine Many /hpf (Few); WBC Urine 0-5 /hpf; pH Urine 5.5 (5.0-9.0)
[2023-11-23 05:42] LABS: Add Urine Microscopic? YES
--- NOTE | 2023-11-23 05:45 | ECG_ITS ---
Measurements Intervals [place] Rate: 75 P: 70 MT: 135 QRS: 87 QRSD: 89 T: 70 QT: 402 QTc: 450 Interpretive Statements SINUS RHYTHM NORMAL ELECTROCARDIOGRAM NO PREVIOUS ECG AVAILABLE FOR COMPARISON Electronically Signed On 11-23-2023 8:12:13 GENETIC PHYSICIAN by Alcides White M.D.
[2023-11-23 05:52] LABS: Magnesium 1.6 mg/dL (1.6-2.3)
[2023-11-23 06:02] LABS: Lactic Acid Reflex 2.1 mmol/L (0.7-2.0)
[2023-11-23 06:25] LABS: Influenza A QL RT-PCR Negative (Negative); Influenza B QL RT-PCR Negative (Negative); SARS-CoV-2 RNA PCR Negative (Negative)
[2023-11-23] MEDS: FAMOTIDINE 20 MG/2 ML VIAL IV PUSH (06:39)
[2023-11-23] MEDS: DICYCLOMINE HCL INJ 20 MG/2 ML VIAL IM (06:57)
[2023-11-23 07:01] VITALS: PULSE 91; RESP 15; TEMP 38.2; O2SAT 100
[2023-11-23 07:45] VITALS: BP 110/70; PULSE 99; RESP 15; TEMP 37.2
[2023-11-23] MEDS: ACETAMINOPHEN 500 MG TABLET 1000 MG PO (07:52)
[2023-11-23 08:48] LABS: Reflex Lactic Acid Yes or No Add Lactic
== END 2023-11-23 07:55 | disposition home or self-care (01) ==
PROVIDERS: Emergency Provider Student in an Organized Health Care Education/Training Program; PCP Family Medicine
DX: K52.9 Noninfective gastroenteritis and colitis, unspecified (principal); Z20.822 Contact with and (suspected) exposure to COVID-19; J45.909 Unspecified asthma, uncomplicated; K21.9 Gastro-esophageal reflux disease without esophagitis; F17.210 Nicotine dependence, cigarettes, uncomplicated; N20.0 Calculus of kidney
CPT/HCPCS: 36415; 74177; 80053; 81001; 81025; 83605; 83690; 83735; 85025; 87636; 93005; 96361; 96372; 96374; 96375; 99284; A9270; J0500; J1630; J2405; J7030; Q9967

== ENCOUNTER 2024-10-07 13:28 | Outpatient (RCR) | payer OTHER, SELFPAY ==
[2024-10-07 13:33] VITALS: BMI 30.2
[2024-10-07 13:35] VITALS: BMI 30.2
== END 2025-01-05 23:59 | disposition home or self-care (01) ==
LOC: ANHDMC 13:28
PROVIDERS: PCP Family Medicine; Visit Provider Advanced Practice Midwife
DX: O24.410 Gestational diabetes mellitus in pregnancy, diet controlled (principal); Z71.3 Dietary counseling and surveillance
CPT/HCPCS: 97802

== ENCOUNTER 2024-11-12 16:40 | Inpatient (IN) | payer OTHER, SELFPAY ==
[2024-11-12] VITALS (62 sets, daily range): BP systolic 97–152; BP diastolic 52–126; PULSE 63–129; RESP 14; TEMP 36.8; O2SAT 95–100
--- OUTSIDE RECORDS SUMMARY | 2024-11-12 16:45 | XMS_ITS | Data Portability ---
Author Organization [place] [facility], Main Office Address [address] [place] [address] Assessment Encounter Date Assessment Date Assessment LastModified by Organization Details LastModified Time 06/13/2023 06/13/2023 I have reconciled the patient's medications post their discharge from inpatient facility. Not available 06/13/2023 08:11:43 Plan of Treatment Reminders Order Date Submit Date Provider Last Modified By Organization Details Last Modified Time Details Appointments None record ed. Lab None record ed. Referral None record ed. Procedures None record ed. Surgeries None record ed. Imaging None record ed. Medication Orders None record ed. Patient TargetsNo targets recorded. Patient Instructions Encounter Date Encounter Id Patient Instructions Last Modified By Organization Details Last Modified Time 06/13/2023 [id number] Thank you for your visit to our office today. We would like to request that you reach out to your referring or previous provider and request that they send us a Summary of Care in electronic form, so that we may have it on file in your medical record. At your visit, we had the medical records we needed to provide you with the best possible care; however, for insurance purposes, an electronic Summary of Care is beneficial. Thank you for your assistance in obtaining this information and we look forward to providing continued care to you. Please review your medication list from the Summary of Care for this visit. If there are any differences from what you are currently taking at home, please call us to discuss. Not available 06/13/2023 08:11:43 Homebound Status : {{Patient has an inability to leave the home without a taxing effort and assistance from another person Does not meet homebound status}} Required Home Health Services: {{none half-way, physical therapy, occupational therapy half-way, physical therapy half-way}} Durable Medical Equipment needed: {{cane walker wal ker with seat manual wheelchair bedsid e commode oxygen}} Billing Guidelines CPT code 34866- Transitional Care Management services with moderate medical decision complexity (ulmz-tc-etde visit within 14 days of discharge). CPT code 60134- Transitional Care Management services with high medical decision complexity (bmhf-nx-kkdb visit within 7 days of discharge). Not available 06/13/2023 08:11:43 Reason for Referral None Reported. Results Created Date Observation Date Name Description Value Unit Range Abnormal Flag Note LastModifiedBy Organization Detail LastModifiedTime 06/03/2006/03/2023 XR, hip + pelvi s, unila teral No observ ation record ed. [address], [id number], 02/15/2024 12:56:08 06/03/20 23 06/03/2023 XR, knee No observ ation record ed. [address], [id number], 02/15/2024 12:56:22 11/23/19 24 11/23/2023 CT, abdom en + pelvi s, w/o contr ast No observ ation record ed. [address], [address], 02/15/2024 12:56:45 Result Notes None recorded. Problems Name Problem SNOMED Code Status Onset Date Resolution Date Notes Provider Name and Address Organization Details Recorded Time Bipolar disorder 01783591 Active 2019 Not Available [facility] 3 22:04:50 Hyperemesi s gravidarum 32018292 Active 2019 Not Available [facility] 3 22:04:50 Asthma 161328200 Active 2019 Not Available [facility] 3 22:04:50 Polycystic ovary syndrome 862324448 Active 2019 Not Available [facility] 3 22:04:50 COVID-19 095407746 Active 2020 Not Available [facility] 3 22:04:50 Pain of left thigh 3125116294820 05 Active 2022 ARASH Portillo [address] [facility], [facility] [address], [place], [address] , [facility] [place] [facility] 3 08:22:50 Problem Notes None recorded. Procedures Surgical History Date Name Laterality Status Provider Name and Address Organization Details Recorded Time 06/13/2023 Transition al_Care_Ma nagement completed Mikayla Waller MA [facility] 06/13/2023 08:11:43 Imaging Results Imaging Date Name Status LastModified by Organiz ation Details LastModified Time 06/03/2023 XR, hip + pelvis, unilateral completed [address], [address], 02/15/2024 12:56:08 06/03/2023 XR, knee completed [address], [address], 02/15/2024 12:56:22 11/23/2023 CT, abdomen + pelvis, w/o contrast completed [address], [address], 02/15/2024 12:56:45 Procedure Notes None recorded. Medical Equipment None Reported. Allergies Allergen ID Allergen Name Allergen Category Reaction Reaction Severity Criticality Documentation Date Start Date Code Code System Note Provider Name and Address Organization Details Recorded Time 44807 Product containin g penicilli n and antibioti c (product) medicatio n rash Not available Not available 12/04/2022 66688 05 SNOMED Not Available [facility] 3 22:05:51 24856 amoxicill in medicatio n rash Not available Not available 12/04/2022 723 RxNorm Not Available [facility] 3 22:05:51 Medications Name Sig Start Date Stop Date Status Note LastModified by Organization Details LastModified Time clindamycin HCl 300 mg capsule TAKE ONE CAPSULE BY MOUTH EVERY 6 HOURS UNTIL ALL TAKEN active Not Available Not Available No t Available azithromyci n 250 mg tablet 05/22 completed Not Available Not Available Not Available ibuprofen 800 mg tablet TAKE 1 TABLET BY MOUTH EVERY 8 HOURS NEEDED FOR PAIN active Not Available Not Available No t Available benzonatate 200 mg capsule 05/22 completed Not Available Not Available Not Available sumatriptan 100 mg tablet 1 po at onset of headache, do not exceed 1 tab in 24 hours active Not Available Not Available No t Available hydrocodone 5 mg-acetamin ophen 325 mg tablet TAKE 1 TO 2 TABLETS BY MOUTH EVERY 4 TO 6 HOURS NEEDED FOR PAIN active Not Available Not Available No t Available acetaminoph en 300 mg-codeine 30 mg tablet TAKE 1 TABLET BY MOUTH EVERY 6 HOURS NEEDED FOR PAIN active Not Available Not Available No t Available sulfamethox azole 800 mg-trimetho prim 160 mg tablet TAKE 1 TABLET BY MOUTH EVERY 12 HOURS FOR 7 DAYS active Not Available Not Available No t Available tramadol 50 mg tablet Take 1 tablet every 6 hours by oral route as needed for 5 days. active Not Available Not Available No t Available alprazolam 0.5 mg tablet active Not Available Not Available Not Available tamsulosin 0.4 mg capsule Take 1 capsule every day by oral route for 10 days. active Not Available Not Available No t Available benzonatate 100 mg capsule Take 1 capsule 3 times a day by oral route as needed for 10 days. active Not Available Not Available No t Available cephalexin 500 mg capsule 05/22 completed Not Available Not Available Not Available gabapentin 100 mg capsule 05/22 completed Not Available Not Available Not Available methylpredn isolone 4 mg tablets in a dose pack FOLLOW PACKAGE DIRECTION S active Not Available Not Available No t Available Vitals Date Recorded Body height Body mass index (BMI) Body weight Body temperature Heart rate Oxygen saturation Oxygen saturation in Arterial blood by Pulse oximetry Pain severity - 0-10 verbal numeric rating [Score] - Reported Systolic blood pressure Diastolic blood pressure Provider Name and Address Organization Details Last Updated DateTime 3 152.4 cm 22.3 kg/m2 56578.5 3 g 98.9 [degF] 76 /min 98 % 98 % 2 109 mm[Hg] 66 mm[Hg] Mikayla Waller MA [place] [facility] 3 08:15:40 Social History None recorded. Functional Status None recorded. Mental Status None recorded. Family History Nothing Reported Notes:No breast, no colon ca ncer Medical History No medical history recorded. Gynecological HistoryNo gynecological history recorded. Obstetrics History GPAL:G 0 P 0 0 0 0 Past Encounters Encounter ID Performer Location Encounter Start Date Encounter Closed Date Diagnosis/Indication Diagnosis SNOMED-CT Code Diagnosis ICD10 Code Diagnosis Note [id number] Jason Quiles, [employer] [facility] Primary Care [facility] [address] [facility] [address] [place] [address] 06/13/2023 07:59:43 06/13/2023 08:33:20 Pain of left thigh 4682609030 35855 M79.652 injured left thigh approx 2 weeks agof/u with ER-xray negative, encourage to ice, use crutches until pain freePain rated at 6/10uses otc as neededDecl gavi further interventi on Health Concerns Section Related Observation LastModified by Organization Detai ls LastModified Time None Recorded Concern Status LastModified by Organization Details LastModified Time None Recorded Advance Directives Directive None Recorded Payers Encounter Date Sequence Insurance Name Policy Number Policy [place] Covered Member ID Chester Member ID Guarantor Name 06/13/2023 1 [facility] [employer] [id number] Sunshine Ramirez [id number] Sunshine Ramirez Notes Date Note Type Note Provider Name and Address Organization Details Recorded Time 06/13/2023 text/html Pt is here to c/o pain to left thigh Jason CollierONESIMO de la torreP-C [address] [facility] [address], [place], [address], [place] [facility] [place] [employer] [facility] 06/13/2023 08:34:30 OBGyn Episode No OBEpisode recorded.
--- OUTSIDE RECORDS SUMMARY | 2024-11-12 16:45 | XMS_ITS | Continuity of Care Document ---
Author Organization [facility] [place] Address [address] [place] [address] Assessment Encounter Date Assessment Date Assessment LastModified by Organization Details LastModified Time 11/12/2024 11/12/2024 Patient is __38_weeks . Discussed plan. Not available 11/12/2024 17:04:29 Plan of Treatment Reminders Order Date Submit Date Provider Last Modified By Organization Details Last Modified Time Details Appointments NST 2024 03:00P M NST SCHEDULE Not available Not available Not available U/S OB BPP 2024 03:30P M ULTRASOUND Not available Not available Not available OB ROUTINE 2024 03:45P M BERENICE LockM Not available Not available Not available INDUCTI ON 2024 05:00A M BERENICE LockM Not available Not available Not available NST 2024 02:30P M NST SCHEDULE Not available Not available Not available U/S OB BPP 2024 03:00P M ULTRASOUND Not available Not available Not available OB ROUTINE 2024 03:45P M Morelia Clarke CNM Not available Not available Not available U/S OB BPP 2024 01:30P M ULTRASOUND Not available Not available Not available NST 2024 02:00P M NST SCHEDULE Not available Not available Not available OB ROUTINE 2024 02:30P M Morelia Clarke CNM Not available Not available Not available Lab None recorde d. Referral None recorde d. Procedures None recorde d. Surgeries None recorde d. Imaging None recorde d. Medication Orders None recorde d. Patient TargetsNo targets recorded. Patient InstructionsNo instructions recorded. Reason for Referral None Reported. Results Created Date Observation Date Name Description Value Unit Range Abnormal Flag Note LastModifiedBy Organization Detail LastModifiedTime 05/14/20 24 05/17/2024 US, obste tric, nucha l trans lucen cy No observ ation record ed. [facility] [address], [place], [address], 05/17/2024 18:16:35 05/14/20 24 05/14/2024 US, obste tric, nucha l trans lucen cy No observ ation record ed. JALEN Ann [address], [place], [address], 05/17/2024 11:43:56 07/09/20 24 07/09/2024 US, obste tric, 2nd or 3rd trime ster No observ ation record ed. [email or web address] [place] [address], [place], [address], 07/09/2024 12:34:53 07/09/2007/09/2024 US, obste tric, 2nd or 3rd trime ster No observ ation record ed. JALEN Ann [address], [place], [address], 07/15/2024 11:31:50 09/01/20 24 09/01/2024 US, obste tric, follo w-up No observ ation record ed. [facility] [address], [place], [address], 09/01/2024 17:26:07 09/01/20 24 09/01/2024 US, doppl er, umbil ical arter y veloc imetr y No observ ation record ed. [facility] [address], [place], [address], 09/01/2024 17:26:19 09/01/20 24 09/01/2024 US, obste tric, follo w-up No observ ation record ed. Marissa [address], [place], [address], 09/06/2024 22:39:07 09/08/20 24 09/08/2024 US, obste tric, follo w-up No observ ation record ed. [address] [facility], [place], [address], 09/09/2024 18:35:51 09/08/20 24 09/08/2024 US, obste tric, follo w-up No observ ation record ed. [address] [facility] [address] [place], [address], 09/14/2024 15:09:53 10/22/19 25 10/22/2024 US, obste tric, follo w-up No observ ation record ed. Marissa [address], [place], [address], 10/28/2024 18:29:41 10/22/19 25 10/22/2024 US, obste tric, follo w-up No observ ation record ed. [facility] [address], [place], [address], 10/22/2024 18:04:21 10/22/19 25 10/22/2024 US, obste tric, bioph ysica l profi le No observ ation record ed. [facility] [address], [place], [address], 10/22/2024 18:04:31 10/22/19 25 10/22/2024 US, doppl er, umbil ical arter y veloc imetr y No observ ation record ed. [facility] [address], [place], [address], 10/22/2024 18:04:42 10/29/1910/29/2024 non-s tress test No observ ation record ed. [email or web address] [place] [address], [place], [address], 10/29/2024 16:50:02 10/29/19 25 10/29/2024 US, obste tric, bioph ysica l profi le + non-s tress test No observ ation record ed. [facility] [address], [place], [address], 10/29/2024 17:54:13 10/29/19 25 10/29/2024 US, doppl er, umbil ical arter y veloc imetr y No observ ation record ed. [facility] [address], [place], [address], 10/29/2024 17:54:23 10/29/19 25 10/29/2024 US, obste tric, follo w-up No observ ation record ed. rodrigue Ann [address], [place], [address], 11/02/2024 17:54:10 11/02/19 25 10/29/2024 US, obste tric, bioph ysica l profi le + non-s tress test No observ ation record ed. [email or web address] Marissa [address], [place], [address], 11/03/2024 23:11:32 11/02/19 25 10/29/2024 US, obste tric, bioph ysica l profi le + non-s tress test No observ ation record ed. [email or web address] Mar[address], [place], [address], 11/03/2024 23:11:32 11/05/19 25 11/05/2024 US, obste tric, bioph ysica l profi le + non-s tress test No observ ation record ed. [facility] [address], [place], [address], 11/05/2024 17:37:50 11/05/19 25 11/05/2024 US, doppl er, umbil ical arter y veloc imetr y No observ ation record ed. [facility] [address], [place], [address], 11/05/2024 17:38:00 11/05/19 25 11/05/2024 US, obste tric, follo w-up No observ ation record ed. [email or web address] [address], [place], [address], 11/08/2024 09:54:59 11/05/19 25 11/05/2024 non-s tress test No observ ation record ed. [email or web address] [place] [address], [place], [address], 11/05/2024 14:54:30 11/12/19 25 11/12/2024 imagi ng/di agnos tic resul t No observ ation record ed. [email or web address] [address], [place], [address], 11/12/2024 17:28:49 11/12/19 US, obste tric, follo w-up No observ ation record ed. [facility] [address], [place], [address], 11/12/2024 17:31:28 11/12/19 US, obste tric, bioph ysica l profi le + non-s tress test No observ ation record ed. [facility] [address], [place], [address], 11/12/2024 17:31:32 11/12/19 25 US, doppl er, umbil ical arter y veloc imetr y No observ ation record ed. [facility] [address], [place], [address], 11/12/2024 17:31:36 Result Notes None recorded. Problems Name Problem SNOMED Code Status Onset Date Resolution Date Notes Provider Name and Address Organization Details Recorded Time Normal pregnanc y in multigra shelbi 0960691217 32516 Completed 201712/14/2020 Encounte r for suprvsn of normal pregnanc y, first trimeste r;Practi ce ID: 0001 Chuyita Rodriguez tom [facility] 15:42:11 Antenata l screenin g Completed 201712/14/2020 Encounte r for other specifie d antenata l screenin g;Practi ce ID: 0001 Chuyita Rodriguez tom, [facility] 15:40:48 Mild hypereme sis gravidar um [id number] Completed 201712/14/2020 Mild hypereme sis gravidar um;Pract ice ID: 0001 Chuyita Rodriguez tom [facility] 15:42:08 Gestatio n period, 20 weeks [id number] Completed 201712/14/2020 20 weeks gestatio n of pregnanc y;Practi ce ID: 0001 Chuyita Rodriguez tom [facility] 15:41:25 Gestatio n period, 19 weeks [id number] Completed 201712/14/2020 19 weeks gestatio n of pregnanc y;Practi ce ID: 0001 Chuyita Rodriguez tom [facility] 15:41:23 Antenata l screenin g for malforma tion Completed 201712/14/2020 Encounte r for antenata l screenin g for malforma tions;Pr actice ID: 0001 Chuyita santos, [facility] 15:40:51 Palpitat ions [id number] Completed 201712/14/2020 Palpitat ions;Pra ctice ID: 0001 Chuyita santos, [facility] 15:42:13 Dizzines s and giddines s [id number] Completed 201712/14/2020 Dizzines s and giddines s;Practi ce ID: 0001 Chuyita santos [facility] 15:40:59 Pregnanc y, childbir th and puerperi um finding Completed 201712/14/2020 Oth pregnanc y related conditio ns, third trimeste r;Practi ce ID: 0001 Chuyita santos, [facility] 15:40:56 Gestatio n period, 28 weeks [id number] Completed 201712/14/2020 28 weeks gestatio n of pregnanc y;Practi ce ID: 0001 Chuyita santos [facility] 15:41:27 Gestatio n period, 30 weeks [id number] Completed 201712/14/2020 30 weeks gestatio n of pregnanc y;Practi ce ID: 0001 Chuyita santos, [facility] 15:41:29 Gestatio n period, 32 weeks [id number] Completed 201712/14/2020 32 weeks gestatio n of pregnanc y;Practi ce ID: 0001 Chuyita santos [facility] 15:41:[address] Concept Completed 201712/14/2020 Maternal care for oth abnormal ity and damage, unsp;Pra ctice ID: 0001 Chuyita santos, [facility] 15:42:27 finding Completed 201712/14/2020 Matern care for oth or susp poor fetl grth, third tri, unsp;Pra ctice ID: 0001 Chuyita santos, [facility] 15:41:01 Gestatio n period, 33 weeks [id number] Completed 201712/14/2020 33 weeks gestatio n of pregnanc y;Practi ce ID: 0001 Chuyita santos [facility] 15:41:33 Gestatio n period, 34 weeks [id number] Completed 201712/14/2020 34 weeks gestatio n of pregnanc y;Practi ce ID: 0001 Chuyita santos, [facility] 15:41:35 Finding of defecati on Completed 201712/14/2020 Constipa tion, unspecif ied;Prac gelacio ID: 0001 Chuyita santos, [facility] 15:41:13 Complica tion of pregnanc y, childbir th and/or puerperi [id number] Completed 201712/14/2020 Oth diseases and conditio ns compl preg/chl dbrth;Pr actice ID: 0001 Chuyita santos, [facility] 15:42:41 Right lower quadrant pain [id number] Completed 201712/14/2020 Right lower quadrant pain;Pra ctice ID: 0001 Chuyita santos, [facility] 15:42:19 Gestatio n period, 35 weeks [id number] Completed 201712/14/2020 35 weeks gestatio n of pregnanc y;Practi ce ID: 0001 Chuyita santos, [facility] 15:41:[address] Concept Completed 201712/14/2020 Matern care for abnlt fetl hrt rate or rhym, 3rd tri, unsp;Pra ctice ID: 0001 Chuyita santos, [facility] 15:42:[address] Concept Completed 201712/14/2020 Maternal care for oth problems , third trimeste r, unsp;Pra ctice ID: 0001 Chuyita santos, [facility] 15:42:31 Gestatio n period, 36 weeks [id number] Completed 201712/14/2020 36 weeks gestatio n of pregnanc y;Practi ce ID: 0001 Chuyita santos [facility] 15:41:42 Gestatio n period, 37 weeks [id number] Completed 201712/14/2020 37 weeks gestatio n of pregnanc y;Practi ce ID: 0001 Chuyita santos [facility] 15:41:44 Gestatio n period, 38 weeks [id number] Completed 201712/14/2020 38 weeks gestatio n of pregnanc y;Practi ce ID: 0001 Chuyita santos [facility] 15:41:59 heart finding Completed 201712/14/2020 Abnlt in heart rate and rhythm comp labor and delivery ;Practic e ID: 0001 Chuyita santos, [facility] 15:41:08 Single live [id number] Completed 201712/14/2020 Single live ;Pr actice ID: 0001 Chuyita santos, [facility] 15:42:25 Infectio n screenin g Completed 201612/14/2020 Encounte r for screenin g for oth infec/pa rastc diseases ;Recorde d Elsewher e: No Locat ion: Pilichanell jamal [facility] S ource: EHR Slab Inspector shelly: N Christinati ce ID: 0001 Leonidas lable Time: 02:30:00 PM Chuyita [facility] 15:42:06 Past pregnanc y history of gestatio nal diabetes mellitus [id number] Completed 201712/14/2020 Personal history of gestatio nal diabetes ;Recorde d Elsewher e: No [facility] S ource: EHR Slab Inspector shelly: N Practi ce ID: 0001 Leonidas lable Time: 02:41:39 PM Chuyita [facility] 15:42:04 Syphilis test finding [id number] Completed 201612/14/2020 Encntr screen for infectio ns w sexl mode of transmis s;Record ed Elsewher e: No [facility] S ource: EHR Slab Inspector shelly: N Christinati ce ID: 0001 Leonidas lable Time: 02:30:00 PM Chuyita [facility] 15:42:36 Gestatio n less than 9 weeks [id number] Completed 201612/14/2020 Less than 8 weeks gestatio n of pregnanc y;Record ed Elsewher e: No [facility] S ource: EHR Slab Inspector shelly: N Practi ce ID: 0001 Leonidas lable Time: 03:00:00 PM Chuyita [facility] 15:41:21 Secondar y amenorrh ea [id number] Completed 201612/14/2020 Secondar y amenorrh ea;Recor ded Elsewher e: No Locat ion: [facility] jamal [facility] S ource: EHR Slab Inspector shelly: N Practi ce ID: 0001 Leonidas lable Time: 02:30:00 PM Chuyita Rodriguez null, [facility] 15:42:21 Uterine size for dates discrepa ncy Completed 201610/27/2020 Uterine size-ethan e discrepa ncy, first trimeste r;Record ed Elsewher e: No Locat ion: [facility] S ource: EHR Slab Inspector shelly: N Practi ce ID: 0001 Leonidas lable Time: 03:00:00 PM Rubio Mejia MD [address], [place], [address], [facility] 12:40:02 Body mass index 30+ - obesity 295067238 Completed 201612/14/2020 Body mass index (BMI) 32.0-32. 9, adult;Re corded Elsewher e: No Locat ion: [facility] S ource: [facility] shelly: N Practi ce ID: 0001 Leonidas lable Time: 02:30:00 PM Chuyita Rodriguez [facility], [facility] 15:40:54 Pregnanc y detectio n examinat ion Completed 201612/14/2020 Encounte r for pregnanc y test, result positive ;Recorde d Elsewher e: No Locat ion: [facility] S ource: EHR Slab Inspector shelly: N Practi ce ID: 0001 Leonidas lable Time: 02:30:00 PM Chuyita Rodriguez null, [facility] 15:42:[address] Concept Completed 201612/14/2020 Encntr for marketing planner exam (general ) (routine ) w/o abn findings ;Recorde d Elsewher e: No Locat ion: [facility] S ource: EHR Slab Inspector shelly: N Practi ce ID: 0001 Leonidas lable Time: 02:30:00 PM Chuyita Rodriguez null, [facility] 1 15:42:33 Pregnanc y 47194030 Active 2023 Yamile Garcia null, [facility] 4 14:52:17 Asthma 161562116 Active Yamileciara Garcia null, [facility] 4 14:52:37 Mixed anxiety and depressi ve disorder 728506141 Active Yamileciara Garcia [facility], [facility] 4 14:53:21 Advanced maternal age 387056607 Active possibly dependin g on delivery date MFM confirme d EDC 11-21-24 Mackenzieyaw Hughes [facility], [facility] 4 15:04:47 Destinyjuan a user 236319485 Active 2023 Buddyshirley Tammie [facility], [facility] 4 15:38:38 Bipolar disorder 59348512 [facility], [facility] 4 15:39:21 Impaired glucose toleranc e 6849173 Active 2023 12/2 elevated 1hr gct checking bs CORBY Hughes [facility], [facility] 4 13:21:55 Impaired glucose toleranc e 6688744 Active 2023 122 elevated 1hr gct checking bs TAZElizabeth Mackenzie [facility], [facility] 4 13:21:55 COVID-19 711679123 Active 2023 bASA daily, serial growth US - Schedule d MFM 10/08/24 Mackenzieyaw santos, [facility] 4 16:13:35 COVID-19 246096027 Active 2023 bASA daily, serial growth US - Schedule d MFM 10/08/24 Mackenzie Hughes tom, [facility] 4 16:13:35 Gestatio nal diabetes mellitus 96924358 Active 2024 DE referral faxed - DT complete d 10/07/24 clinical notes scanned in 10/22 Lantus pen 5u@ HS increase d to 7u 10/26 [facility] 14:23:31 Gestatio nal diabetes mellitus 72882100 Active 2024 DE referral faxed - DT complete d 10/07/24 clinical notes scanned in 10/22 Lantus pen 5u@ HS increase d to 7u 10/26 [facility] 5 14:23:31 growth restrict ion 26953576 Active Mackenzie [facility] 5 13:56:32 growth restrict ion 66483587 Active Mackenzie Hughes [facility] 5 13:56:32 Problem Notes None recorded. Procedures Surgical History Date Name Laterality Status Provider Name and Address Organization Details Recorded Time 04/26/20 24 Colposcopy completed Rubio Mejia MD [address], [place], [address], [facility] 04/26/2024 16:17:25 04/26/20 24 Colposcopy completed Carolina Martinez [facility] 04/26/2024 15:30:08 04/09/20 24 Date of Last Pap Smear completed Carolina Martinez [facility] 04/26/2024 15:28:58 11/07/19 24 IUD Removal completed Rubio Mejia MD [address], [place], [address], [facility] 11/07/2023 16:53:17 06/13/20 22 LAPAROSCOPIC OVARIAN CYSTECTOMY (SURG) completed Ethel Gould [facility] 06/13/2022 14:59:07 11/15/19 21 IUD Insertion completed Rubio Mejia MD [address], [place], [address], [place] [facility] 11/15/2020 19:16:40 10/20/19 21 LAPAROSCOPY, DIAGNOSTIC (SURG) completed A Ruehrup [facility] 10/23/2020 18:13:46 Imaging Results None recorded. Procedure Notes None recorded. Medical Equipment None Reported. Allergies Allergen ID Allergen Name Allergen Category Reaction Reaction Severity Criticality Documentation Date Start Date Code Code System Note Provider Name and Address Organization Details Recorded Time 2954 amoxicill in medicatio n hives Not available Not available 09/16/2020 723 RxNorm Ch[facility]ita [facility] 0 12:36:28 2955 Product containin g penicilli n and antibioti c (product) medicatio n hives Not available Not available 09/16/2020 75388 05 SNOMED Chuyita [facility] 0 12:36:39 Medications Name Sig Start Date Stop Date Status Note LastModified by Organization Details LastModified Time cyclobenz aprine 10 mg tablet take 1 tablet by oral route 2 times every day 06/09 completed Prescrib ed Elsewher e: No Locat ion: Becki berry [facility] M odify By: christine gallegosuntloi DateTime : 03/18/20 18 11:56:14 AM Not Available Not Available Not Available Mirena 21 mcg/24 hr (up to 8 years) 52 mg intrauter ine device iud inserted 11/07 completed Not Available Not Available Not Available methocarb ulises 500 mg tablet TAKE 1 TABLET BY MOUTH EVERY 8 HOURS NEEDED FOR MUSCLE SPASM FOR 5 DAYS . CAN CAUSE SEDATION 06/06 completed Not Available Not Available Not Available clindamyc in HCl 300 mg capsule TAKE ONE CAPSULE BY MOUTH EVERY 6 HOURS UNTIL ALL TAKEN 11/07 completed Not Available Not Available Not Available azithromy farhad 250 mg tablet TAKE 2 TABLETS BY MOUTH TODAY, THEN TAKE 1 TABLET DAILY FOR 4 DAYS 09/16 completed Not Available Not Available Not Available ibuprofen 800 mg tablet TAKE 1 TABLET BY MOUTH EVERY 8 HOURS NEEDED FOR PAIN 05/14 completed Not Available Not Available Not Available benzonata te 200 mg capsule TAKE 1 CAPSULE (200 MG TOTAL) BY MOUTH 3 (THREE) TIMES A DAY NEEDED FOR COUGH FOR UP TO 10 DAYS 09/16 completed Not Available Not Available Not Available sumatript an 100 mg tablet TAKE 1 TABLET BY MOUTH AT ONSET OF HEADACHE , DO NOT EXCEED MORE THAN 1 TAB/24 HR 09/16 completed Not Available Not Available Not Available hydrocodo ne 5 mg-acetam inophen 325 mg tablet TAKE 1 TO 2 TABLETS BY MOUTH EVERY 4 TO 6 HOURS NEEDED FOR PAIN 11/07 completed Not Available Not Available Not Available Keflex 500 mg capsule take 1 capsule by oral route every 6 hours 06/09 completed Prescrib ed Elsewher e: No Locat ion: [facility] odify By: [email or web address] Berry ncounter DateTime : 04/09/20 18 11:00:00 AM Not Available Not Available Not Available ondansetr on HCl 4 mg tablet TAKE 1 TABLET BY MOUTH EVERY 4 TO 6 HOURS NEEDED active Not Available Not Available No t Available acetamino phen 300 mg-codein e 30 mg tablet TAKE 1 TABLET BY MOUTH EVERY 6 HOURS NEEDED FOR PAIN 11/07 completed Not Available Not Available Not Available Tamiflu 75 mg capsule take 1 capsule by oral route every day for 10 days 12/16 completed Prescrib ed Elsewher e: No Locat ion: [facility] M odify By: [email or web address] Berry ncounter DateTime : 10/10/19 18 12:05:55 PM Not Available Not Available Not Available sulfameth oxazole 800 mg-trimet hoprim 160 mg tablet TAKE 1 TABLET BY MOUTH EVERY 12 HOURS FOR 7 DAYS 06/06 completed Not Available Not Available Not Available tramadol 50 mg tablet TAKE 1 TABLET BY MOUTH EVERY 6 HOURS NEEDED FOR 5 DAYS 06/06 completed Not Available Not Available Not Available acetamino phen 500 mg tablet TAKE 1 TABLET BY MOUTH EVERY 6 HOURS NEEDED FOR PAIN 04/09 completed Not Available Not Available Not Available alprazola m 0.5 mg tablet 11/07 completed Not Available Not Available Not Available famotidin e 20 mg tablet TAKE 1 TABLET BY MOUTH DAILY 04/09 completed Not Available Not Available Not Available tamsulosi n 0.4 mg capsule TAKE 1 CAPSULE BY MOUTH EVERY DAY FOR 10 DAYS 06/06 completed Not Available Not Available Not Available OneTouch Ultra Test strips active Not Available Not Available Not Available Compazine 5 mg tablet take 1 tablet by oral route every 4 hours as needed for nausea and vomiting 12/16 completed Prescrib ed Elsewher e: No Locat ion: Keli jamal [facility] odify By: francesca syed DateTime : 10/14/19 18 08:30:00 AM Not Available Not Available Not Available meclizine 25 mg tablet take 1 tablet by oral route 3 times every day as needed 06/09 completed Prescrib ed Elsewher e: No Locat ion: Keli jamal [facility] odify By: christine Berry ncounter DateTime : 12/31/19 18 09:15:00 AM Not Available Not Available Not Available benzonata te 100 mg capsule TAKE 1 CAPSULE BY MOUTH THREE TIMES A DAY NEEDED FOR 10 DAYS 09/16 completed Not Available Not Available Not Available chlorprom azine 25 mg tablet take 1 tablet by oral route every 6 hours as needed 06/09 completed Prescrib ed Elsewher e: No [facility] By: christine Berry ncounter DateTime : 03/06/20 18 10:53:58 AM Not Available Not Available Not Available Transderm -Scop 1 mg over 3 days transderm al patch apply 1 patch by transder mal route 12/16 completed Prescrib ed Elsewher e: No [facility] By: francesca syed DateTime : 12/02/19 18 09:45:00 AM Not Available Not Available Not Available methylpre dnisolone 4 mg tablets in a dose pack FOLLOW PACKAGE DIRECTIO NS 11/07 completed Not Available Not Available Not Available ondansetr on 4 mg disintegr ating tablet DISSOLVE 1 TABLET ON THE TONGUE EVERY 8 HOURS NEEDED FOR NAUSEA OR VOMITING 04/09 completed Not Available Not Available Not Available dicyclomi ne 10 mg capsule TAKE 1 CAPSULE BY MOUTH FOUR TIMES DAILY NEEDED FOR ABDOMINA L PAIN 04/09 completed Not Available Not Available Not Available cyclobenz aprine 5 mg tablet TAKE 1 TABLET BY MOUTH EVERY 8 HOURS NEEDED FOR PAIN active Not Available Not Available No t Available ProAir HFA 90 mcg/actua tion aerosol inhaler inhale 2 puff by inhalati on route every 4 - 6 hours as needed 04/09 completed Prescrib ed Elsewher e: No Locat ion: [facility] odify By: tgingric h Ella syed DateTime : 11/04/19 18 09:00:00 AM Not Available Not Available Not Available Lantus Solostar U-100 Insulin 100 unit/mL (3 mL) subcutane ous pen INJECT 5 UNITS UNDER THE SKIN DIRECTED EVERY NIGHT AT BEDTIME. DISCARD AFTER 28 DAYS. active Not Available Not Available No t Available Diclegis 10 mg-10 mg tablet,de layed release take 1 tablet by oral route every day in the morning, 1 tablet in the mid-afte rnoon, and 2 tablets at bedtime 06/09 completed Prescrib ed Elsewher e: No Locat ion: [facility] odify By: amkuhosvaldo Berry ncountloi DateTime : 03/18/20 18 11:56:14 AM Not Available Not Available Not Available Fioricet 50 mg-300 mg-40 mg capsule take 1 - 2 capsule by oral route every 4 hours as needed not to exceed 6 capsules per 24hrs 06/09 completed Prescrib ed Elsewher e: No Locat ion: [facility] odify By: amkuhosvaldo Berry ncounter DateTime : 12/02/19 18 09:45:00 AM Not Available Not Available Not Available Droplet Pen Needle 32 gauge x 5/32 USE 1 EACH DIRECTED ONCE DAILY FOR INJECTIO NS. active Not Available Not Available No t Available Nexium 24HR 20 mg tablet,de layed release 1 po q day 06/06 completed Prescrib ed Antonietta e: No Locat ion: [facility] M odvinayak By: francesca tamera Ella syed DateTime : 12/24/19 18 08:30:00 AM Not Available Not Available Not Available OneTouch Ultra2 Meter active Not Available Not Available Not Available OneTouch Delica Plus Lancet 33 gauge active Not Available Not Available Not Available ID NOW COVID-19 Test Kit TEST DIRECTED TODAY 04/09 completed Not Available Not Available Not Available Vitals Date Recorded Body weight Body mass index (BMI) Body height Systolic blood pressure Diastolic blood pressure Provider Name and Address Organization Details Last Updated DateTime 11/12/2024 55118.55 631 g 31.8 kg/m2 152.4 cm 128 mm[Hg] 72 mm[Hg] Yamile Garcia [facility] 5 16:55:43 Social History Question Answer Notes LastModified by Organizat ion Details LastModified Time Tobacco Smoking Status Current Every Day Smoker Chuyita santos, [facility] 09/16/2020 12:42:56 What Is Your Level Of Alcohol Consumption? None Information not available 04/06/2024 If You Are , What Was Your Level Of Alcohol Consumption Prior To ? Occasional [email or web address] Information not available 04/06/2024 Are You Blind Or Do You Have Difficulty Seeing? No [email or web address] Information not available 04/06/2024 What Is Your Level Of Caffeine Consumption? Occasional [email or web address] Information not available 04/06/2024 How Much Tobacco Do You Chew? None [email or web address] Information not available 06/11/2024 In The 14 Days Before Symptom Onset, Have You Had Close Contact With A Laboratory-confir med COVID-19 While That Case Was Ill? No [email or web address] Information not available 04/06/2024 In The 14 Days Before Symptom Onset, Have You Had Close Contact With A Person Who Is Under Investigation For COVID-19 While That Person Was Ill? No [email or web address] Information not available 04/06/2024 Have You Been To An Area Known To Be High Risk For COVID-19? No [email or web address] Information not available 04/06/2024 Are You Deaf Or Do You Have Serious Difficulty Hearing? No [email or web address] Information not available 04/06/2024 What Type Of Diet Are You Following? REGULAR [email or web address] Information not available 04/06/2024 Do You Or Have You Ever Used E-cigarettes Or Vape? Never Used Electronic Cigarettes Information not available 10/27/2020 What Is The Highest Grade Or Level Of School You Have Completed Or The Highest Degree You Have Received? BM06639-5 [email or web address] Information not available 06/11/2024 Are There Any Guns Present In Your Home? No [email or web address] Information not available 06/11/2024 What Was The Date Of Your Most Recent Tobacco Screening? 11/12/2024 [email or web address] Information not available 11/12/2024 Do You Use Protection During Sex? No [email or web address] Information not available 06/11/2024 Do You Use Your Seat Belt Or Car Seat Routinely? Yes [email or web address] Information not available 04/06/2024 Are You Sexually Active? Yes [email or web address] Information not available 04/06/2024 Do You Have Smoke And Carbon Monoxide Detectors In Your Home? Yes [email or web address] Information not available 04/06/2024 At What Age Did You Start Smoking Tobacco? 12 [email or web address] Information not available 06/11/2024 Do You Or Have You Ever Used Smokeless Tobacco? Never Used Smokeless Tobacco Information not available 10/27/2020 How Much Tobacco Do You Smoke? 0.25 PPD [email or web address] Information not available 06/11/2024 Do You Feel Stressed (tense, Restless, Nervous, Or Anxious, Or Unable To Sleep At Night)? [id number] [email or web address] Information not available 04/06/2024 Do You Use Any Illicit Or Recreational Drugs? No [email or web address] Information not available 06/11/2024 Do You Use Sunscreen Routinely? Yes [email or web address] Information not available 04/06/2024 How Many Years Have You Smoked Tobacco? 21 [email or web address] Information not available 06/11/2024 Have You Used IV Drugs? No [email or web address] Information not available 06/11/2024 Sex: Unknown Functional Status Question Answer Note LastModified by Organizat ion Details LastModified Time Do you have difficulty walking or climbing stairs? No Information not available 04/06/2024 Are you able to walk? YESWOREST [email or web address] Information not available 04/06/2024 Are you able to care for yourself? Yes [email or web address] Information not available 04/06/2024 Do you have difficulty dressing or bathing? No [email or web address] Information not available 04/06/2024 What is your exercise level? Occasional [email or web address] Information not available 04/06/2024 Mental Status None recorded. Family History Relationship Description Onset Age of this Age Resolved Age Notes LastModified by Organization Details LastModified Time Mother Asthma Not available 09/16/2020 12:42:52 Medical History Condition Response Allergies (Food, seasonal, environmental ) Y Other Y Breast Cancer N Drug/Latex Allergies/Reactions Y Blood Transfusion N Dermatologic Disorders N Lung Disease N Defects or Inherited Disease N Breast Problem N Gestational Diabetes Y Hematologic disorders N Anesthesia Complications N History of STI Y Deep Vein Thrombosis N Polycystic ovary syndrome Y Anxiety Disorder Y Autoimmune disease N Arthritis N Infertility N Polyps N Acid Reflux (GERD) N History of abnormal pap Y Cancer N Stroke N Varicosities N Neurologic/Epilepsy Y Endometriosis N High Cholesterol N Headaches Y Fibromyalgia N Kidney Disease N Heart Problems N Kidney or Bladder Problems N Thyroid Problems N GI Problems N Eating Disorder N Anemia N Art (IVF or FET) N Psychiatric Illness Y Ovarian Cancer N Diabetes Y Pulmonary (TB, Asthma) N Hepatitis/Liver Disease N No Past Medical History N Eczema N Urinary Tract Infection N Abuse/Domestic Violence N Asthma Y Trauma/Violence N Depression/ depression Y Heart Disease N Pre-Eclampsia N Hypertension N Osteoporosis N Thrombophilias N Gynecological History Statement/Question Response Abnormal Pap Y Date of Last Mammogram Date of LMP 02/13/2024 N Was last menstrual period normal Y STIs/STDs Y HPV Vaccine N Colposcopy 04/26/2024 Duration of Flow (days) 5 Current Control Method Age at First Child 18 Sexually Active? Y Date of DEXA bone scan Age of first menstrual cycle 12 Date of Last Pap Smear 04/09/2024 Sexual Problems? N LMP Definite N Obstetrics History GPAL:G 3 P 2 0 0 2 Type Value Full Term 2 Living 2 Total 3 Past Encounters Encounter ID Performer Location Encounter Start Date Encounter Closed Date Diagnosis/Indication Diagnosis SNOMED-CT Code Diagnosis ICD10 Code Diagnosis Note [id number] [facility] [address],[place] [address] 10/22/2024 14:48:30 10/25/2024 06:48:32 Small for gestational age fetus [id number] O36.5930 O24.414 Z3A.35 [id number] OPHELIA SHER MD [facility] [address],[place] [address] 10/22/2024 14:49:10 10/22/2024 16:33:15 growth restriction 18465930 O36.5999 Gestationa l diabetes mellitus class A2 55786936 O24.414 Bipolar disorder 4266685 4 F31.9 Asthma 703626347 J45.90 9 Gestation period, 35 weeks 57659998 Z3A.35 [id number] Jessi Gardner [facility] [address],[place] [address] 10/29/2024 15:43:41 11/01/2024 15:11:18 growth restriction 31400593 O36.5999 [id number] [facility] [address],[place] [address] 10/29/2024 15:45:06 11/03/2024 23:28:31 Small for gestational age fetus 311025153 O36.5930 O24.414 Z3A.36 [id number] [facility] [address],[place] [address] 10/29/2024 15:45:30 11/02/2024 05:30:08 screening 016874870 Z36.85 [id number] [facility] [address] [place] [address] 11/05/2024 13:14:08 11/05/2024 13:55:53 Small for gestational age fetus 429594863 O36.5930 O24.414 Z3A.37 [id number] CACHORRO Brantley [facility] [address] [place] [address] 11/05/2024 13:49:04 11/05/2024 14:56:48 growth restriction 47628961 O36.5999 [id number] Morelia Clarke [facility] [address],[place] [address] 11/05/2024 13:49:15 11/05/2024 15:34:40 Gestation period, 37 weeks 11230121 Z3A.37 [id number] Nichol Bañuelos [facility] [address],[place] [address] 11/12/2024 15:45:26 11/12/2024 17:32:29 Small for gestational age fetus [id number] O36.5930 O24.414 Z3A.38 [id number] Morelia Clarke, [facility] [address],[place] [address] 11/12/2024 15:45:37 11/12/2024 17:22:12 Gestation period, 38 weeks 52591077 Z3A.38 Health Concerns Section Related Observation LastModified by Organization Detai ls LastModified Time None Recorded Concern Status LastModified by Organization Details LastModified Time None Recorded Payers Encounter Date Sequence Insurance Name Policy Number Policy Chester Covered Member ID Chester Member ID Guarantor Name 11/12/2024 1 [facility] [employer] MANAGEMENT (PPO) [id number] Sunshine Ramirez [id number] Sunshine Ramirez OBGyn Episode Ob Episode Information Episode Created Date Number of Fetuses Patient Bloodtype Patient rh Status Prepregnancy Weight lbs Domestic Partner Domestic Partner Phone Father Name Fine Grader Status 05/14/20 24 1 A Positive 124 OPEN Fetus Data First Name Last Name Admitted to NICU Weight (g) Sex Living Outcome Pediatric Complications Fetus ID Race Codes Race Delivery Type [id number] Problems Problem Notes 09/08 MFM consult recommendat ions: Revise EDC 5-60-99Qruto BP carefully, obtain baseline CMP and quantitative proteinuriaFollow-up U/S for growth & AFV & development every 4 weeksAntenatal testing (e.g. NST+BPP or NST+JERICHO) if later indicatedDelivery planning (timing, mode, location): too early to determine at present [facility] 10/08/24 230 Growth us Problem Name Start Date End Date Resolution Snomed Code Not e Mixed anxiety and depressive disorder 905760746 COVID-19 09/16/2024 [id number] Nu watson, serial growth US - Scheduled MFM 10/08/24 US Bipolar disorder 26016352 Impaired glucose tolerance 09/06/2024 2793559 09/06 elevated 1 hr gct checking bs QID Gestational diabetes mellitus 10/08/2024 41418552 DE referral fax ed - DT completed 10/07/24 clinical notes scanned in10/22 Lantus pen 5u@ HS increased to 7u 10/26 Asthma 381167581 growth restriction 82202993 Advanced maternal age 897345631 possibly depend ing on delivery date MFM confirmed EDC 11-21-24 Marijuana user 05/14/2024 [id number] Barrie Calculation Initial Barrie Date Initial Exam Date Initial Exam Provider Initial Ultrasound Date Last Menstrual Period Date Ultra Sound Weeks Gestation 11/19/2024 04/09/2024 04/09/2024 02/13/2024 7 Eighteen To Twenty Week Barrie Update Ultra Sound Date Fundal Height At Umbil Quickening Date Ultra Sound Latest Weeks Gestation Final Barrie Confirmed By Final Barrie Confirmed Date Final Barrie Date Ultra Sound Latest Days Gestation 0 11/26/19 25 0 Pre-adore Flowsheet Flowsheet Date 05/14/2024 Rosales Score Blood Edema Fundus Height Fundus Units Glucose Ketones Leukocytes Nitrite Labor Signs Protein Cervic Dilation Cervic Effacement Cervic Station neg none none trace Type Weight in lbs Pre/Post Dialysis Refused Weight 125.552583197166 BP Diastolic BP Location Tested BP Systolic BP Type 74 113 Fetus Heart Rate Present Fetus Movement A No Comments Patient states that has had some headaches and nausea and vomiting. reviewed precautions and education and US, hx of 2 vaginal deliveries, history of HG and GDM in 2018 labs done NIPS wnl Flowsheet Date 06/11/2024 Rosales Score Blood Edema Fundus Height Fundus Units Glucose Ketones Leukocytes Nitrite Labor Signs Protein Cervic Dilation Cervic Effacement Cervic Station none trace Type Weight in lbs Pre/Post Dialysis Refused 133.620904880963 BP Diastolic BP Location Tested BP Systolic BP Type 65 114 Fetus Heart Rate Present Fetus Movement A Yes Comments Patient states that is havin g pelvic pain and pain with urination, nausea and vomiting. denies fever, gi sxs, exam wnl, will send urine, probable muscular pain rx for flexeril, hurts much worse when moving around, can consider PT if worsens, pt considering intermittent FMLA, ED precautions, education done Flowsheet Date 07/09/2024 Rosaels Score Blood Edema Fundus Height Fundus Units Glucose Ketones Leukocytes Nitrite Labor Signs Protein Cervic Dilation Cervic Effacement Cervic Station Type Weight in lbs Pre/Post Dialysis Refused BP Diastolic BP Location Tested BP Systolic BP Type Fetus Heart Rate Present Fetus Movement Comments Flowsheet Date 07/09/2024 Rosales Score Blood Edema Fundus Height Fundus Units Glucose Ketones Leukocytes Nitrite Labor Signs Protein Cervic Dilation Cervic Effacement Cervic Station none Type Weight in lbs Pre/Post Dialysis Refused 139.206858482460 BP Diastolic BP Location Tested BP Systolic BP Type 75 113 Fetus Heart Rate Present Fetus Movement A Yes Comments Patient states that is havin g headache, dizzyness, muscle pain, nausea and vomting. discussed precautions increase hydration, snacks every couple hours, anatomy complete efw 16% plan to rpt at 28 weeks, +FM Flowsheet Date 08/06/2024 Rosales Score Blood Edema Fundus Height Fundus Units Glucose Ketones Leukocytes Nitrite Labor Signs Protein Cervic Dilation Cervic Effacement Cervic Station Type Weight in lbs Pre/Post Dialysis Refused 145.0427329265 BP Diastolic BP Location Tested BP Systolic BP Type 68 115 Fetus Heart Rate Present Fetus Movement A Yes Comments Patient is having some restl ess legs, leg pain, pain, BH contractions, discharge, pain with urination, nausea and vomiting. unisom makes it worse, ok for magnesium, benedryl, precautions and education f/u 3 weeks with us and gct +FM Flowsheet Date 09/01/2024 Rosales Score Blood Edema Fundus Height Fundus Units Glucose Ketones Leukocytes Nitrite Labor Signs Protein Cervic Dilation Cervic Effacement Cervic Station Type Weight in lbs Pre/Post Dialysis Refused BP Diastolic BP Location Tested BP Systolic BP Type Fetus Heart Rate Present Fetus Movement Comments Flowsheet Date 09/01/2024 Rosales Score Blood Edema Fundus Height Fundus Units Glucose Ketones Leukocytes Nitrite Labor Signs Protein Cervic Dilation Cervic Effacement Cervic Station trace Type Weight in lbs Pre/Post Dialysis Refused 150.131454720511 BP Diastolic BP Location Tested BP Systolic BP Type 72 113 Fetus Heart Rate Present Fetus Movement A Yes Comments Patient states that is havin g some BH contractions, discharge, swelling, nausea and vomiting. IUGR at 5 % AC 7% +FM, glucose today discussed MFM us and consult, if any decreased movement to ld, reviewed kick counts precautions and education f/u here in 2 weeks Flowsheet Date 09/24/2024 Rosales Score Blood Edema Fundus Height Fundus Units Glucose Ketones Leukocytes Nitrite Labor Signs Protein Cervic Dilation Cervic Effacement Cervic Station none Type Weight in lbs Pre/Post Dialysis Refused 152.521125259547 BP Diastolic BP Location Tested BP Systolic BP Type 80 121 Fetus Heart Rate Present Fetus Movement A Yes Comments Patient is having pain, Bh c ontractions, discharge, swelling,nausea and vomiting. reviewed bs log, rule in for GDM, has been trying to alter diet doing ok, will refer to [facility] for formal diet teaching discussed no juice soda, reduce carbs, +FM, precautions and education f/u 2 weeks Flowsheet Date 10/08/2024 Rosales Score Blood Edema Fundus Height Fundus Units Glucose Ketones Leukocytes Nitrite Labor Signs Protein Cervic Dilation Cervic Effacement Cervic Station Type Weight in lbs Pre/Post Dialysis Refused Weight 158.632411576038 BP Diastolic BP Location Tested BP Systolic BP Type 81 125 Fetus Heart Rate Present Fetus Movement A Yes Comments Patient is having some cramp ing, swelling, nausea and vomiting. +FM, mfm us today, doing well, had diabetic teaching at [facility]. handout given reviewed blood sugars continue diet controlled, precautions and education ok for rsv, schedule preadmit Flowsheet Date 10/22/2024 Rosales Score Blood Edema Fundus Height Fundus Units Glucose Ketones Leukocytes Nitrite Labor Signs Protein Cervic Dilation Cervic Effacement Cervic Station Type Weight in lbs Pre/Post Dialysis Refused BP Diastolic BP Location Tested BP Systolic BP Type Fetus Heart Rate Present Fetus Movement Comments Flowsheet Date 10/22/2024 Rosales Score Blood Edema Fundus Height Fundus Units Glucose Ketones Leukocytes Nitrite Labor Signs Protein Cervic Dilation Cervic Effacement Cervic Station neg none Type Weight in lbs Pre/Post Dialysis Refused Weight 160.187994859554 BP Diastolic BP Location Tested BP Systolic BP Type 81 L arm 123 sitting Fetus Heart Rate Present Fetus Movement A Yes Comments Patient c/o of slight nausea , along with some Judson Cruz. Good movement. EFW 5% today, UADs wnl, BPP 88. Discussed FGR diagnosis and recommendation for weekly UADs/BPP/NST as well as 38 week induction. Will discuss with SP. Glucose log reviewed, >50% fasting elevated. PP almost all within goal. Will start lantus 5u qHS. Discussed GBS for next visit. RTC 1 week. Flowsheet Date 10/29/2024 Rosales Score Blood Edema Fundus Height Fundus Units Glucose Ketones Leukocytes Nitrite Labor Signs Protein Cervic Dilation Cervic Effacement Cervic Station Type Weight in lbs Pre/Post Dialysis Refused BP Diastolic BP Location Tested BP Systolic BP Type Fetus Heart Rate Present Fetus Movement Comments Flowsheet Date 10/29/2024 Rosales Score Blood Edema Fundus Height Fundus Units Glucose Ketones Leukocytes Nitrite Labor Signs Protein Cervic Dilation Cervic Effacement Cervic Station Type Weight in lbs Pre/Post Dialysis Refused BP Diastolic BP Location Tested BP Systolic BP Type Fetus Heart Rate Present Fetus Movement Comments Flowsheet Date 10/29/2024 Rosales Score Blood Edema Fundus Height Fundus Units Glucose Ketones Leukocytes Nitrite Labor Signs Protein Cervic Dilation Cervic Effacement Cervic Station Type Weight in lbs Pre/Post Dialysis Refused Weight 164.631854322774 BP Diastolic BP Location Tested BP Systolic BP Type 84 121 Fetus Heart Rate Present Fetus Movement Comments bpp 8/10, +FM, discussed iug r will talk with dr sher next week aboyt 38 vs 39 week IOL, gbs collected doing well cervix soft, education and precautions Flowsheet Date 11/05/2024 Rosales Score Blood Edema Fundus Height Fundus Units Glucose Ketones Leukocytes Nitrite Labor Signs Protein Cervic Dilation Cervic Effacement Cervic Station Type Weight in lbs Pre/Post Dialysis Refused BP Diastolic BP Location Tested BP Systolic BP Type Fetus Heart Rate Present Fetus Movement Comments Flowsheet Date 11/05/2024 Rosales Score Blood Edema Fundus Height Fundus Units Glucose Ketones Leukocytes Nitrite Labor Signs Protein Cervic Dilation Cervic Effacement Cervic Station Type Weight in lbs Pre/Post Dialysis Refused BP Diastolic BP Location Tested BP Systolic BP Type Fetus Heart Rate Present Fetus Movement Comments Flowsheet Date 11/05/2024 Rosales Score Blood Edema Fundus Height Fundus Units Glucose Ketones Leukocytes Nitrite Labor Signs Protein Cervic Dilation Cervic Effacement Cervic Station neg none neg Type Weight in lbs Pre/Post Dialysis Refused 164.02973329358 BP Diastolic BP Location Tested BP Systolic BP Type 83 121 Fetus Heart Rate Present Fetus Movement A Yes Comments Patient is having some pain, contractions, discharge, swelling, nausea and vomiting. discussed IOL with dr kris jesus for 38 weeks, scheduled for 11/15 at 0500, +FM, precautions and education f/u one week Flowsheet Date 11/12/2024 Rosales Score Blood Edema Fundus Height Fundus Units Glucose Ketones Leukocytes Nitrite Labor Signs Protein Cervic Dilation Cervic Effacement Cervic Station Type Weight in lbs Pre/Post Dialysis Refused BP Diastolic BP Location Tested BP Systolic BP Type Fetus Heart Rate Present Fetus Movement Comments Flowsheet Date 11/12/2024 Rosales Score Blood Edema Fundus Height Fundus Units Glucose Ketones Leukocytes Nitrite Labor Signs Protein Cervic Dilation Cervic Effacement Cervic Station Type Weight in lbs Pre/Post Dialysis Refused BP Diastolic BP Location Tested BP Systolic BP Type Fetus Heart Rate Present Fetus Movement Comments Flowsheet Date 11/12/2024 Rosales Score Blood Edema Fundus Height Fundus Units Glucose Ketones Leukocytes Nitrite Labor Signs Protein Cervic Dilation Cervic Effacement Cervic Station neg trace Type Weight in lbs Pre/Post Dialysis Refused 163.661494343611 BP Diastolic BP Location Tested BP Systolic BP Type 72 128 Fetus Heart Rate Present Fetus Movement A Yes Comments Patient is having some contr action, discharge, swelling, nausea and vomiting. efw <1% discussed with dr. kris jesus IOL today Menstrual History Last Menstrual Date Menses Monthly On Bcp Conception Prior Menses Frequency Hcg Plus Date Menarche Onset Age 0502/13/2025 Delivery Information Delivery Date Delivery Type Labor Anesthesia Weeks Gestation Incision Type Labor Labor Length Hrs Delivered By Post Complications Tubal Sterilization Discharge Date Comments Discharge Information Feeding Method Contraceptive Method Maternal HG B and HCT Levels
--- OUTSIDE RECORDS SUMMARY | 2024-11-12 16:45 | XMS_ITS | Clinical Summary ---
Author Organization [facility] Address [address] [place] [address] Care Team Providers Care Clinical Review Nurse Name Role Phone Anh Apodaca MD Unavailable [phone] Vasile Rodriguez MD Primary Care Provider [phone] Allergies Active Allergy Reactions Criticality Noted Date Comments Amoxicillin Rash Medium 11/20/2017 rash Ampicillin Rash,Shortness of breath High Mold Rhinorrhea Low 04/03/2018 Penicillin Rash Medium 03/25/2019 rash Penicillins Rash,Shortness of breath High 11/20/2017 Medications albuterol HFA (PROVENTIL HFA,VENTOLIN HFA,PROAIR HFA) 90 mcg/actuation inhaler INHALE 2 PUFF BY MOUTH 4 TIMES A DAY 8.5 Inhaler 04/23/2019 Active topiramate (TOPAMAX) 25 mg tablet Take 1 tablet (25 mg total) by mouth daily At bedtime 90 tablet 1 04/28/2019 Active gabapentin (NEURONTIN) 100 mg capsule TAKE 1 CAPSULE BY MOUTH TWICE A DAY 60 capsule 2 08/05/2019 Active azithromycin (ZITHROMAX) 250 mg tabletIndicatio ns:Shortness of breath,Cough Take 2 tabs (500 mg) by mouth today, than 1 daily for 4 days. 6 tablet 01/21/2020 Active Active Problems Problem Noted Date Diagnosed Date Abscess of axilla, right 05/12/2019 Weight loss 03/25/2019 Anxiety and depression 03/30/2018 Overview (03/30/2018): Patient has history of anxiety/depresion. She was previously on an antidepressant and valium, which she discontinued with the . She is currently on Prozac. She reports good control of her depression, but difficulty with the anxiety. She denies suicidal and homicidal ideationn We discussed the risks of uncontrolled anxiety and depression including worsening in the period. We discussed the benefits and risks of SSRIs in including congenital cardiac defect with Paxil, abstinence syndrome and possible persistent pulmonary hypertension. Patient states that she needs the medication to function, in which case the benefits outweigh the risks. Chronic migraine without aur a without status migrainosus, not intractable 03/30/2018 Overview (03/30/2018): Patient has history of migraines, currently on Fioricet as needed. Family history of congenital cardiac septal defe ct 03/30/2018 Overview (03/30/2018): Patient's mother has a history of coarctation of the aorta and biscupid aortic valve. She currently has a prosthetic valve. Patient reports that she herself does not have any cardiac defect. We discussed the increased risk of congenital cardiac defect in the setting of family history. Given that the patient herself does not have a cardiac defect the risk to the fetus is lower. However in the setting of other defects a pediatric echocardiogram is indicated. We will arrange for patient to have a echo at [facility]. Tobacco use 03/30/2018 Overview (03/30/2018): Patient has cut down to now 1-2 cigs/per day. We discussed the risks of tobacco use in including growth restriction and stillbirth and I strongly encouraged patient to quit. Major depressive disorder, single episode, unspe cified 11/05/2017 Patient currently 09/23/2017 Resolved Problems Problem Noted Date Diagnosed Date Resolved Date Abnormal ultrasound 03/30/2018 03/25/2019 Overview (04/03/2018): Patient referred for short long bones and intra-abdominal cyst. 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 The long bones are of normally shaped without bowing, and mineralization is normal. The skull and profile also appear normal. The chest circumference is within normal limits with chest to abdominal circumference of 0.88. 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 The cerebellar vermis is visualized and the remaining intracranial anatomy including the lateral ventricles appears normal. -A hypoechoic intra-abdominal cyst is noted in what appears to be spleen, measuring 8 mm in diameter Patient was counseled on the differential diagnoses of shortened long bones including the possibility of skeletal dysplasia. I indicated that normal mineralization and morphology, absence of skull and facial abnormalities and normal chest circumference makes this unlikely to be one of the lethal skeletal dysplasias. We also discussed the increased risks of trisomy 21 in the setting of short long bones. Patient already had sequential screen with risk for aneuploidy <1: 10, 000 and no other markers were noted on ultrasound today. We discussed options of additional testing including NIPT and amniocentesis and patient opted for NIPT NIPT; drawn today at [facility]. 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 I indicated that prognosis may range from normal variant to association with significant neurodevelopmental abnormalities. We will arrange for patient to have a MRI through the [facility] and notify patient. We discussed that the intra-abdominal cyst is most likely of splenic origin, but differential diagnoses include adrenal cyst, duplication cyst of stomach or bowel, mesenteric cyst or infradiaphragmatic cystic lung lesions. I indicated that antenatally diagnosed splenic cysts are rare and usually benign, and prognosis is generally good. They may spontaneously regress prenatally or postnatally, or remain unchanged. However, there is the rare risk of complications such as rapid enlargement, hemorrhage, infection or rupture. We will plan to monitor with serial ultrasounds. growth restriction: 03/30/2018 Overview (03/30/2018): Overall growth is at the 7th percentile. Umbilical artery Doppler PI is normal and well being is reassuring at this time with BPP of 8/8. We discussed that growth restriction is associated with increased risk for adverse outcomes including stillbirth. I reviewed the need for serial surveillance including weekly umbilical artery Dopplers, 2x/week testing. Delivery would be indicated by 37 weeks given patient's other risk factors for stillbirth. GDM - A1 03/30/2018 03/25/2019 Overview (03/30/2018): Patient has been diet controlled and managed by her primary OB. She reports fasting blood sugar values of 70 - 80s and 1 hour postprandial values of 120 - 130s. We discussed the importance of good blood sugar control to reduce risks of preeclampsia, growth abnormalities and injuries. She understand the possibility that she may need pharmacotherapy including insulin or oral hypoglycemic agents if diet alone does not control her disease. Patient will continue to be managed by her primary OB. I recommend 2 hour GTT 6- 8 weeks . Heart palpitations 03/30/2018 9 Overview (03/30/2018): Patient reports worsening palpitations. She had initial work up including EKG and TSH, which were reportedly normal. Patient is scheduled for a Holter monitor which I encouraged her to complete. Asthma affecting , antepartum 03/30/2018 03/25/2019 Overview (03/30/2018): Controlled on Albuterol inhaler as needed. Surgical History Surgery Date Site/Laterality Comments NO PAST SURGERIES Medical History Medical History Date Comments Gestational diabetes mellitu s (GDM) affecting first Hyperemesis affecting , antepartum Anxiety and depression Chronic migraine without aura Wo rse with Asthma affecting , antepartum Heart palpitations Tobacco use affecting , antepartum Family History Medical History Relation Name Comments bicuspid valve, coarctation of aorta Mother Relation Name Status Comments Father Alive Mother Alive Social History Tobacco Use Types Packs/Day Years Used Date Smoking Tobacco: Every Day Cigarettes 1 17 Smokeless Tobacco: Current Alcohol Use Standard Drinks/Week Comments No 0 (1 standard drink = 0.6 oz pur e alcohol) Personal Safety Answer Date Recorded Getting School Help Needed Not on file 12/19 Comments No Sex and Gender Information Value Date Recorded Sex Assigned at Not on file 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[employer] Gender Identity Not on file Sexual Orientation Not on file Obstetrics History Para Term AB IAB SAB Ectopic Multiple Livin g Live Births 2 1 1 1 1 Date Outcome GA Total Labor Labor/2nd/3rd Weight Sex Type Anes PTL Yareli A1 A5 Name Clin 11/09 Term 40w 0d 2.778 kg (6 lb 2 oz) F Vag-S pont Epidura l N Living Complications:None Last Filed Vital Signs Vital Sign Reading Time Taken Comments Blood Pressure 107/50 05/18/2019 9:50 AM CDT Pulse 116 01/21/2020 2:12 PM CDT Temperature 37.3 C (99.2 F) 01/21/2020 2:12 PM CDT Respiratory Rate 18 05/14/2019 11:55 AM CDT Oxygen Saturation 99% 01/21/2020 2:12 PM CDT Inhaled Oxygen Concentration - - Weight 59.9 kg (132 lb) 05/24/2019 9:30 AM CDT Height 160 cm (5' 3 ) 05/24/2019 9:30 AM CDT Body Mass Index 23.38 05/24/2019 9:30 AM CDT Plan of Treatment Not on file Insurance [employer]OS Care Teams Clinical Review Nurse Relationship Specialty Start Date End Date Vasile Rodriguez MD [address] [facility] [place] [address] PCP - General Family Medicine 03/25/19 Anh Apodaca MD [address] [place] [address] Referring Physician Family Medicine 03/27/18
--- OUTSIDE RECORDS SUMMARY | 2024-11-12 16:45 | XMS_ITS | Clinical Summary ---
Author Organization 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 Name Role Phone Unavailable Primary Care Provider Unavailabl e Social History Tobacco Use Types Packs/Day Years Used Date Smoking Tobacco: Never Assessed Comments Unknown Sex and Gender Information Value Date Recorded Sex Assigned at Not on file Legal Sex Female 5:10 PM CDT Gender Identity Not on file Sexual Orientation Not on file Plan of Treatment Health Maintenance Due Date Last Done Comments Cervical Cancer Screening Pa p Smear (Age 30 to 64) Every 3 Years 1989 Annual Physical 1992 Hepatitis C 2007 DTaP, Tdap and Td Vaccines ( 1 - Tdap) 2008 Hepatitis B Vaccines (1 of 3 - 19+ 3-dose series) 2008 Cervical Cancer Screening Pa p with HPV Testing (Age 30 to 64) Every 5 Years 2019 Cervical Cancer Screening with HPV 2019 COVID-19 Vaccine (2023-2 5 season) 2024 Influenza Adult (#1) 2024 HPV Vaccines Aged Out No longer eligi ble based on patient's age to complete this topic Meningococcal B Vaccine Aged Out No l onger eligible based on patient's age to complete this topic Meningococcal Vaccine Aged Out No carley albert eligible based on patient's age to complete this topic Pneumococcal Vaccine: Pediat rics (0 to 5 Years) and At-Risk Patients (6 to 64 Years) Aged Out No longer eligible b ased on patient's age to complete this topic RSV Immunizations Under 20 Months Aged Out No longer eligible based on patient's age to complete this topic
--- OUTSIDE RECORDS SUMMARY | 2024-11-12 16:45 | XMS_ITS | Data Portability ---
Author Organization [facility] [place] Address [address] [place] [address] Assessment Encounter Date Assessment Date Assessment LastModified [...] Not available INDUCTI ON 2024 05:00A M Morelia Clarke CNM Not available Not available Not available NST [...] Not available OB ROUTINE 2024 02:30P M BERENICE LockM Not available Not available Not available Lab None recorde d. Referral None recorde d. Procedures None recorde d. Surgeries None recorde d. Imaging non-str ess test 2024 [facility] tanvir ar[address] [place], [address], [address], [place], [address], 11/08/2024 04:08:29 US, obstetr ic, biophys ical profile + non-str ess test [address] [place] [address], [facility] [address], [place], [address], 11/07/2024 22:38:13 US, doppler , umbilic al artery velocim etry [address] [place] [address], [facility] [address], [place], [address], 11/07/2024 22:38:13 US, obstetr ic, follow- up [address] [place] [address], [facility] [address], [place], [address], 11/12/2024 17:31:57 US, obstetr ic, biophys ical profile + non-str ess test [address] [place] [address], [address], [address], [place], [address], 11/12/2024 17:31:57 US, doppler , umbilic al artery velocim etry [address] [place] [address], [facility] [address], [place], [address], 11/12/2024 17:31:57 Medication Orders None recorde d. Patient TargetsNo targets recorded. Patient InstructionsNo instructions recorded. Reason for Referral None Reported. Results Created Date Observation Date Name Description Value Unit Range Abnormal Flag Note LastModifiedBy Organization Detail LastModifiedTime 10/29/1910/29/2024 CULTU RE: GROUP B STREP SCREE N, REFLE X SUSCE PTIBI LITY result report SEE RESULT S BELOW Test: Cultu re: Group B Strep , Refle x Susce ptibi lity ([facility]/ [facility] ) Speci men Sourc e: Vagin a/Rec brendan Speci men Type: Vagin al/Re ctal Speci men Date: 2024 1636 Resul t Date: 2024 1405 Resul t Statu s: Final resul t Abnor mal: No Resul ting Lab: [facility] [address] [facility] [place] [address] Tel: CULTU RE ----- ----- ----- --- No Group B strep isola brittany at 2 days (ale ctive broth enhan cemen t) Not Available [facility] (Lab) [address] [facility], [place], [address], 11/01/2024 15:08:03 10/22/19 25 10/22/2024 US, obste tric, follo w-up No observ ation record ed. [address], [facility], [place], [address], 10/28/2024 18:29:41 10/22/19 25 10/22/2024 US, obste tric, follo w-up No observ ation record ed. [facility] [address], [place], [address], 10/22/2024 18:04:21 10/22/19 25 10/22/2024 US, obste tric, bioph ysica l profi le No observ ation record ed. [facility] [address], [place], [address], 10/22/2024 18:04:31 10/22/19 25 10/22/2024 US, doppl er, umbil ical arter y veloc imetr y No observ ation record ed. [facility] [address], [place], [address], 10/22/2024 18:04:42 10/29/19 25 10/29/2024 non-s tress test No observ ation record ed. [email or web address] [place] [address], [place], [address], 10/29/2024 16:50:02 10/29/19 25 10/29/2024 US, obste tric, bioph ysica l profi le + non-s tress test No observ ation record ed. [facility] [address], [place], [address], 10/29/2024 17:54:13 10/29/19 25 10/29/2024 US, doppl er, umbil ical arter y veloc imetr y No observ ation record ed. [facility] [address], [place], [address], 10/29/2024 17:54:23 10/29/19 25 10/29/2024 US, obste tric, follo w-up No observ ation record ed. rodrigue [address], [place], [address], 11/02/2024 17:54:10 11/02/19 25 10/29/2024 US, obste tric, bioph ysica l profi le + non-s tress test No observ ation record ed. [email or web address] [address], [place], [address], 11/03/2024 23:11:32 11/02/19 25 10/29/2024 US, obste tric, bioph ysica l profi le + non-s tress test No observ ation record ed. [email or web address] [address], [place], [address], 11/03/2024 23:11:32 11/05/19 25 11/05/2024 US, obste tric, bioph ysica l profi le + non-s tress test No observ ation record ed. [facility] [address], [place], [address], 11/05/2024 17:37:50 11/05/19 25 11/05/2024 US, doppl er, umbil ical arter y veloc imetr y No observ ation record ed. [facility] [address], [place], [address], 11/05/2024 17:38:00 11/05/19 25 11/05/2024 US, obste tric, follo w-up No observ ation record ed. [email or web address] [address], [place], [address], 11/08/2024 09:54:59 11/05/19 25 11/05/2024 non-s tress test No observ ation record ed. [email or web address] [place] [address], [place], [address], 11/05/2024 14:54:30 11/12/19 25 11/12/2024 imagi ng/di agnos tic resul t No observ ation record ed. [email or web address] [address], [place], [address], 11/12/2024 17:28:49 11/12/19 US, obste tric, follo w-up No observ ation record ed. [facility] [address], [place], [address], 11/12/2024 17:31:28 11/12/19 US, obste tric, bioph ysica l profi le + non-s tress test No observ ation record ed. [facility] [address], [place], [address], 11/12/2024 17:31:32 11/12/19 25 US, doppl er, umbil ical arter y veloc imetr y No observ ation record ed. [facility] [address], [place], [address], 11/12/2024 17:31:36 Result Notes None recorded. Problems Name Problem SNOMED Code Status Onset Date Resolution Date Notes Provider Name and Address Organization Details Recorded Time Normal pregnanc y in multigra shelbi [id number] 46880 Completed 201712/14/2020 Encounte r for suprvsn of normal pregnanc y, first trimeste r;Practi ce ID: 0001 Chuyita Rodriguez tom, [facility] 15:42:11 Antenata l screenin g Completed 201712/14/2020 Encounte r for other specifie d antenata l screenin g;Practi ce ID: 0001 Chuyita Rodriguez tom, [facility] 15:40:48 Mild hypereme sis gravidar um 85578712 Completed 201712/14/2020 Mild hypereme sis gravidar um;Pract ice ID: 0001 Chuyita Rodriguez tom, [facility] 15:42:08 Gestatio n period, 20 weeks [id number] Completed 201712/14/2020 20 weeks gestatio n of pregnanc y;Practi ce ID: 0001 Chuyita Rodriguez tom, [facility] 15:41:25 Gestatio n period, 19 weeks 73513409 Completed 201712/14/2020 19 weeks gestatio n of pregnanc y;Practi ce ID: 0001 Chuyita Rodriguez tom, [facility] 15:41:23 Antenata l screenin g for malforma tion Completed 201712/14/2020 Encounte r for antenata l screenin g for malforma tions;Pr actice ID: 0001 [facility] 15:40:51 Palpitat ions [id number] Completed 201712/14/2020 Palpitat ions;Pra ctice ID: 0001 [facility] 15:42:13 Dizzines s and giddines s 437723494 Completed 201712/14/2020 Dizzines s and giddines s;Practi ce ID: 0001 [facility] 15:40:59 Pregnanc y, childbir th and puerperi um finding Completed 201712/14/2020 Oth pregnanc y related conditio ns, third trimeste r;Practi ce ID: 0001 [facility] 15:40:56 Gestatio n period, 28 weeks 15014686 Completed 201712/14/2020 28 weeks gestatio n of pregnanc y;Practi ce ID: 0001 [facility] 15:41:27 Gestatio n period, 30 weeks [id number] Completed 201712/14/2020 30 weeks gestatio n of pregnanc y;Practi ce ID: 0001 [facility] 15:41:29 Gestatio n period, 32 weeks [id number] Completed 201712/14/2020 32 weeks gestatio n of pregnanc y;Practi ce ID: 0001 [facility] 15:41:[address] Concept Completed 201712/14/2020 Maternal care for oth abnormal ity and damage, unsp;Pra ctice ID: 0001 Chuyita santos, [facility] 15:42:27 finding Completed 201712/14/2020 Matern care for oth or susp poor fetl grth, third tri, unsp;Pra ctice ID: 0001 Chuyita santos, [facility] 15:41:01 Gestatio n period, 33 weeks 73361775 Completed 201712/14/2020 33 weeks gestatio n of pregnanc y;Practi ce ID: 0001 [facility] 15:41:33 Gestatio n period, 34 weeks 83162452 Completed 201712/14/2020 34 weeks gestatio n of pregnanc y;Practi ce ID: 0001 [facility] 15:41:35 Finding of defecati on Completed 201712/14/2020 Constipa tion, unspecif ied;Prac gelacio ID: 0001 [facility] 15:41:13 Complica tion of pregnanc y, childbir th and/or puerperi 717845580 Completed 201712/14/2020 Oth diseases and conditio ns compl preg/chl dbrth;Pr actice ID: 0001 Chuyita santos, [facility] 15:42:41 Right lower quadrant pain 429364933 Completed 201712/14/2020 Right lower quadrant pain;Pra ctice ID: 0001 Chuyita santos, [facility] 15:42:19 Gestatio n period, 35 weeks [id number] Completed 201712/14/2020 35 weeks gestatio n of pregnanc y;Practi ce ID: 0001 Chuyita santos, [facility] 15:41:[address] Concept Completed 201712/14/2020 Matern care for abnlt fetl hrt rate or rhym, 3rd tri, unsp;Pra ctice ID: 0001 Chuyita santos, [facility] 15:42:[address] Concept Completed 201712/14/2020 Maternal care for oth problems , third trimeste r, unsp;Pra ctice ID: 0001 Chuyita santos, [facility] 15:42:31 Gestatio n period, 36 weeks 29602044 Completed 201712/14/2020 36 weeks gestatio n of pregnanc y;Practi ce ID: 0001 Chuyita santos [facility] 15:41:42 Gestatio n period, 37 weeks 49106653 Completed 201712/14/2020 37 weeks gestatio n of pregnanc y;Practi ce ID: 0001 Chuyita santos, [facility] 15:41:44 Gestatio n period, 38 weeks [id number] Completed 201712/14/2020 38 weeks gestatio n of pregnanc y;Practi ce ID: 0001 Chuyita santos [facility] 15:41:59 heart finding Completed 201712/14/2020 Abnlt in heart rate and rhythm comp labor and delivery ;Practic e ID: 0001 Chuyita santos, [facility] 15:41:08 Single live [id number] Completed 201712/14/2020 Single live ;Pr actice ID: 0001 Chuyita santos, [facility] 15:42:25 Infectio n screenin g Completed 201612/14/2020 Encounte r for screenin g for oth infec/pa rastc diseases ;Recorde d Elsewher e: No [facility] ource: EHR Hide Cleaner shelly: N Fredrick ce ID: 0001 Leonidas lable Time: 02:30:00 PM Chuyita [facility] 15:42:06 Past pregnanc y history of gestatio nal diabetes mellitus 442649891 Completed 201712/14/2020 Personal history of gestatio nal diabetes ;Recorde d Elsewher e: No [facility] E[facility] Hide Cleaner shelly: N Fredrick ce ID: 0001 Leonidas lable Time: 02:41:39 PM Chuyita [facility] 15:42:04 Syphilis test finding 189884911 Completed 201612/14/2020 Encntr screen for infectio ns w sexl mode of transmis s;Record ed Elsewher e: No Locat ion: [facility] S ource: EHR Hide Cleaner shelly: N Fredrick ce ID: 0001 Leonidas lable Time: 02:30:00 PM Chuyita [facility] 15:42:36 Gestatio n less than 9 weeks 196851405 Completed 201612/14/2020 Less than 8 weeks gestatio n of pregnanc y;Record ed Elsewher e: No Locat ion: [facility] S ource: EHR Hide Cleaner shelly: N Christinati ce ID: 0001 Leonidas lable Time: 03:00:00 PM [facility] 15:41:21 Secondar y amenorrh ea 943223199 Completed 201612/14/2020 Secondar y amenorrh ea;Recor ded Elsewher e: No [facility] EHR Hide Cleaner shelly: N Fredrick ce ID: 0001 Leonidas lable Time: 02:30:00 PM Chuyita Rodriguez [facility], [facility] 1 15:42:21 Uterine size for dates discrepa ncy Completed 201610/27/2020 Uterine size-ethan e discrepa ncy, first trimeste r;Record ed Elsewher e: No [facility] EHR Hide Cleaner shelly: N Practi ce ID: 0001 Leonidas lable Time: 03:00:00 PM Rubio Ponce MD [address], [place], [address], [facility] 1 12:40:02 Body mass index 30+ - obesity 976258194 Completed 201612/14/2020 Body mass index (BMI) 32.0-32. 9, adult;Re corded Elsewher e: No Locat ion: [facility] S ource: EHR Hide Cleaner shelly: N Practi ce ID: 0001 Leonidas lable Time: 02:30:00 PM Chuyita Rodriguez [facility], [facility] 1 15:40:54 Pregnanc y detectio n examinat ion Completed 201612/14/2020 Encounte r for pregnanc y test, result positive ;Recorde d Elsewher e: No Locat ion: [facility] S ource: EHR Hide Cleaner shelly: N Practi ce ID: 0001 Leonidas lable Time: 02:30:00 PM Chuyita Rodriguez [facility], [facility] 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 1 15:42:33 Pregnanc y 55036120 Active 2023 Yamileciara Garcia [facility], [facility] 4 14:52:17 Asthma 866532446 Active Yamile Garcia [facility], [facility] 4 14:52:37 Mixed anxiety and depressi ve disorder 486787252 Active Yamile Garcia [facility], [facility] 4 14:53:21 Advanced maternal age 556581725 Active possibly dependin g on delivery date MFM confirme d EDC 11-21-24 Mackenzie Saul [facility], [facility] 4 15:04:47 Sharita a user 997022220 Active 2023 Buddyshirley Tammie [facility] 4 15:38:38 Bipolar disorder 11642353 [facility] Cho [facility], [facility] 4 15:39:21 Impaired glucose toleranc e 0712626 Active 2023 12/2 elevated 1hr gct checking bs D Mackenzie Hughes [facility], [facility] 4 13:21:55 Impaired glucose toleranc e 9054014 Active 2023 12/2 elevated 1hr gct checking bs QIElizabeth Mackenzie Hughes [facility], [facility] 4 13:21:55 COVID-19 050505302 Active 2023 bASA daily, serial growth US - Schedule d MFM 10/08/24 Mackenzie Hughes tom, [facility] 4 16:13:35 COVID-19 753355251 Active 2023 bASA daily, serial growth US - Schedule d MFM 10/08/24 Mackenzie Hughes tom, [facility] 4 16:13:35 Gestatio nal diabetes mellitus 43843455 Active 2024 DE referral faxed - DT complete d 10/07/24 clinical notes scanned in 10/22 Lantus pen 5u@ HS increase d to 7u 10/26 [facility] 5 14:23:31 Gestatio nal diabetes mellitus 53472945 Active 2024 DE referral faxed - DT complete d 10/07/24 clinical notes scanned in 10/22 Lantus pen 5u@ HS increase d to 7u 10/26 [facility] 5 14:23:31 growth restrict ion 88151233 Active Mackenzie Hughes [facility] 5 13:56:32 growth restrict ion 01312971 Active Mackenzie Hughes [facility] 5 13:56:32 Problem Notes None recorded. Procedures Surgical History Date Name Laterality Status Provider Name and Address Organization Details Recorded Time 04/26/20 24 Colposcopy completed Rubio Ponce MD [address], [place], [address], [facility] 04/26/2024 16:17:25 04/26/20 24 Colposcopy completed Carolina Martinez [facility] 04/26/2024 15:30:08 04/09/20 24 Date of Last Pap Smear completed Carolina Martinez [facility] 04/26/2024 15:28:58 11/07/19 24 IUD Removal completed Rubio Ponce MD [address], [place], [address], [facility] 11/07/2023 16:53:17 06/13/20 22 LAPAROSCOPIC OVARIAN CYSTECTOMY (SURG) completed Ethel Gould [facility] 06/13/2022 14:59:07 11/15/19 21 IUD Insertion completed Rubio Ponce MD [address], [place], [address], [place] [facility] 11/15/2020 19:16:40 10/20/19 21 LAPAROSCOPY, DIAGNOSTIC (SURG) completed A Brent [facility] 10/23/2020 18:13:46 Imaging Results Imaging Date Name Status LastModified by Organiz ation Details LastModified Time 10/22/2024 US, obstetric, follow-up completed [email or web address] [address], [place], [address], 10/28/2024 18:29:41 10/22/2024 US, obstetric, follow-up completed [facility] [address], [place], [address], 10/22/2024 18:04:21 10/22/2024 US, obstetric, biophysical profile completed [facility] [address], [place], [address], 10/22/2024 18:04:31 10/22/2024 US, doppler, umbilical artery velocimetry completed [facility] [address], [place], [address], 10/22/2024 18:04:42 10/29/2024 non-stress test completed [email or web address], [place], [address], 10/29/2024 16:50:02 10/29/2024 US, obstetric, biophysical profile + non-stress test completed [facility] [address], [place], [address], 10/29/2024 17:54:13 10/29/2024 US, doppler, umbilical artery velocimetry completed [facility] [address], [place], [address], 10/29/2024 17:54:23 10/29/2024 US, obstetric, follow-up completed [email or web address] [address], [place], [address], 11/02/2024 17:54:10 10/29/2024 US, obstetric, biophysical profile + non-stress test completed [email or web address] [address], [place], [address], 11/03/2024 23:11:32 10/29/2024 US, obstetric, biophysical profile + non-stress test completed [email or web address] [address], [place], [address], 11/03/2024 23:11:32 11/05/2024 US, obstetric, biophysical profile + non-stress test completed [facility] [address], [place], [address], 11/05/2024 17:37:50 11/05/2024 US, doppler, umbilical artery velocimetry completed [facility] [address], [place], [address], 11/05/2024 17:38:00 11/05/2024 US, obstetric, follow-up completed [email or web address] [address], [place], [address], 11/08/2024 09:54:59 11/05/2024 non-stress test completed [address], [place], [address], 11/05/2024 14:54:30 11/12/2024 imaging/diagnos tic result active [email or web address] [address], [place], [address], 11/12/2024 17:28:49 11/12/2024 US, obstetric, follow-up active [place] [address], [place], [address], 11/12/2024 17:31:28 11/12/2024 US, obstetric, biophysical profile + non-stress test active [facility] [address], [place], [address], 11/12/2024 17:31:32 11/12/2024 US, doppler, umbilical artery velocimetry active [place] [address], [place], [address], 11/12/2024 17:31:36 Procedure Notes None recorded. Medical Equipment None Reported. Allergies Allergen ID Allergen Name Allergen Category Reaction Reaction Severity Criticality Documentation Date Start Date Code Code System Note Provider Name and Address Organization Details Recorded Time 2954 amoxicill in medicatio n hives Not available Not available 09/16/2020 723 RxNorm Chuyita Rodriguez [facility] 0 12:36:28 2955 Product containin g penicilli n and antibioti c (product) medicatio n hives Not available Not available 09/16/2020 48336 05 SNOMED Chuyita Jennifer [facility] 0 12:36:39 Medications Name Sig Start Date Stop Date Status Note LastModified by Organization Details LastModified Time cyclobenz aprine 10 mg tablet take 1 tablet by oral route 2 times every day 06/09 completed Prescrib ed Elsewher e: No Locat ion: Becki berry [facility] Sandra odify By: christine Berry ncountloi DateTime : 03/18/20 18 11:56:14 [...] Prescrib ed Elsewher e: No Locat ion: [facility] odify By: [email or web address] Berry ncounter DateTime : [...] Prescrib ed Elsewher e: No [facility] By: amkuhosvaldo Berry ncounter DateTime : [...] Prescrib ed Elsewher e: No Locat ion: [facility] odify By: tgingric h Ella syed DateTime : 10/14/19 18 08:30:00 AM Not Available Not Available Not Available meclizine 25 mg tablet take 1 tablet by oral route 3 times every day as needed 06/09 completed Prescrib ed Elsewher e: No Locat ion: [facility] odify By: amkuhosvaldo Berry ncountloi DateTime : 12/31/19 18 09:15:00 AM Not Available Not Available Not Available benzonata te 100 mg capsule TAKE 1 CAPSULE BY MOUTH THREE TIMES A DAY NEEDED FOR 10 DAYS 09/16 completed Not Available Not Available Not Available chlorprom azine 25 mg tablet take 1 tablet by oral route every 6 hours as needed 06/09 completed Prescrib ed Elsewher e: No Locat ion: [facility] odify By: amkuhosvaldo Berry ncounter DateTime : 03/06/20 18 10:53:58 AM Not Available Not Available Not Available Transderm -Scop 1 mg over 3 days transderm al patch apply 1 patch by transder mal route 12/16 completed Prescrib ed Elsewher e: No Locat ion: Keli jamal [facility] odify By: tgingric h Encoun ter DateTime : 12/02/19 18 09:45:00 AM Not [...] Prescrib ed Elsewher e: No [facility] By: tgingric h Encoun ter DateTime : 11/04/19 18 09:00:00 AM Not [...] Prescrib ed Elsewher e: No Locat ion: [facility] odify By: christine villar DateTime : 03/18/20 18 11:56:14 AM Not Available Not Available Not Available Fioricet 50 mg-300 mg-40 mg capsule take 1 - 2 capsule by oral route every 4 hours as needed not to exceed 6 capsules per 24hrs 06/09 completed Prescrib ed Elsewher e: No Locat ion: [facility] odify By: tiarauhl Jamal ncountloi DateTime : 12/02/19 18 09:45:00 AM Not Available Not Available Not Available Droplet Pen Needle 32 gauge x 5/32 USE 1 EACH DIRECTED ONCE DAILY FOR INJECTIO NS. active Not Available Not Available No t Available Nexium 24HR 20 mg tablet,de layed release 1 po q day 06/06 completed Prescrib ed Elsewher e: No Locat ion: Becki berry [facility] odify By: [email or web address] h Ella syed DateTime : 12/24/19 18 08:30:00 [...] and Address Organization Details Last Updated DateTime 11/05/2024 59511.14 868 g 32 kg/m2 152.4 cm 121 mm[Hg] 83 mm[Hg] Yamile Garcia [facility] 5 14:45:26 Date Recorded Body weight Body mass index (BMI) Body height Systolic blood pressure Diastolic blood pressure Provider Name and Address Organization Details Last Updated DateTime 11/12/2024 37391.55 631 g 31.8 kg/m2 152.4 cm 128 mm[Hg] 72 mm[Hg] Yamile Garcia [facility] 5 16:55:43 Social History Question Answer Notes LastModified by Organizat ion Details LastModified Time Tobacco Smoking Status Current Every Day Smoker [facility]ita [facility] 09/16/2020 12:42:56 What Is Your Level Of Alcohol Consumption? None [email or web address] Information not available 04/06/2024 If You Are , What Was Your Level Of Alcohol Consumption Prior To ? Occasional Information not available 04/06/2024 Are You Blind Or Do You Have Difficulty Seeing? No [email or web address] Information not available 04/06/2024 What Is Your Level Of Caffeine Consumption? Occasional [email or web address] Information not available 04/06/2024 How Much Tobacco Do You Chew? None [email or web address] Information not available 06/11/2024 In The 14 Days Before Symptom Onset, Have You Had Close Contact With A Laboratory-confir med COVID-19 While That Case Was Ill? No [email or web address] Information not available 04/06/2024 In The 14 Days Before Symptom Onset, Have You Had Close Contact With A Person Who Is Under Investigation For COVID-19 While That Person Was Ill? No [email or web address] Information not available 04/06/2024 Have You Been To An Area Known To Be High Risk For COVID-19? No [email or web address] Information not available 04/06/2024 Are You Deaf Or Do You Have Serious Difficulty Hearing? No [email or web address] Information not available 04/06/2024 What Type Of Diet Are You Following? REGULAR [email or web address] Information not available 04/06/2024 Do You Or Have You Ever Used E-cigarettes Or Vape? Never Used Electronic Cigarettes Information not available 10/27/2020 What Is The Highest Grade Or Level Of School You Have Completed Or The Highest Degree You Have Received? MW98171-1 [email or web address] Information not available 06/11/2024 Are There Any Guns Present In Your Home? No Information not available 06/11/2024 What Was The Date Of Your Most Recent Tobacco Screening? 11/12/2024 Information not available 11/12/2024 Do You Use Protection During Sex? No [email or web address] Information not available 06/11/2024 Do You Use Your Seat Belt Or Car Seat Routinely? Yes [email or web address] Information not available 04/06/2024 Are You Sexually Active? Yes [email or web address] Information not available 04/06/2024 Do You Have Smoke And Carbon Monoxide Detectors In Your Home? Yes [email or web address] Information not available 04/06/2024 At What Age Did You Start Smoking Tobacco? 12 [email or web address] Information not available 06/11/2024 Do You Or Have You Ever Used Smokeless Tobacco? Never Used Smokeless Tobacco Information not available 10/27/2020 How Much Tobacco Do You Smoke? 0.25 PPD [email or web address] Information not available 06/11/2024 Do You Feel Stressed (tense, Restless, Nervous, Or Anxious, Or Unable To Sleep At Night)? [id number] [email or web address] Information not available 04/06/2024 Do You Use Any Illicit Or Recreational Drugs? No [email or web address] Information not available 06/11/2024 Do You Use Sunscreen Routinely? Yes [email or web address] Information not available 04/06/2024 How Many Years Have You Smoked Tobacco? 21 [email or web address] Information not available 06/11/2024 Have You Used IV Drugs? No [email or web address] Information not available 06/11/2024 Sex: Unknown Functional Status Question Answer Note LastModified by Organizat ion Details LastModified Time Do you have difficulty walking or climbing stairs? No Information not available 04/06/2024 Are you able to walk? YESWOREST [email or web address] Information not available 04/06/2024 Are you able to care for yourself? Yes [email or web address] Information not available 04/06/2024 Do you have difficulty dressing or bathing? No [email or web address] Information not available 04/06/2024 What is your exercise level? Occasional [email or web address] Information not available 04/06/2024 Mental Status None recorded. Family History Relationship Description Onset Age of this Age Resolved Age Notes LastModified by Organization Details LastModified Time Mother Asthma Not available 09/16/2020 12:42:52 Medical History Condition Response Other Y Blood Transfusion N Dermatologic Disorders N Gestational Diabetes Y Anxiety Disorder Y Autoimmune disease N Arthritis N Polyps N Infertility N Acid Reflux (GERD) N Cancer N Varicosities N Stroke N Neurologic/Epilepsy Y Fibromyalgia N Headaches Y Kidney Disease N Heart Problems N Kidney or Bladder Problems N Eating Disorder N Art (IVF or FET) N Hepatitis/Liver Disease N No Past Medical History N Urinary Tract Infection N Asthma Y Trauma/Violence N Thrombophilias N Allergies (Food, seasonal, environmental ) Y Breast Cancer N Drug/Latex Allergies/Reactions Y Lung Disease N Defects or Inherited Disease N Breast Problem N Hematologic disorders N Anesthesia Complications N History of STI Y Deep Vein Thrombosis N Polycystic ovary syndrome Y History of abnormal pap Y Endometriosis N High Cholesterol N Thyroid Problems N GI Problems N Anemia N Psychiatric Illness Y Ovarian Cancer N Diabetes Y Pulmonary (TB, Asthma) N Eczema N Abuse/Domestic Violence N Depression/ depression Y Heart Disease N Pre-Eclampsia N Hypertension N Osteoporosis N Gynecological History Statement/Question Response Abnormal Pap [...] SNOMED-CT Code Diagnosis ICD10 Code Diagnosis Note [id number] Rubio Ponce MD [facility] [address] [address] 09/16/2020 12:20:19 09/18/2020 15:56:08 Pain in pelvis 53314753 R10.2 This patient is a 29 -year-old female with pelvic pain. We have agreed to complete the evaluation with pelvic ultrasound . The patient will return after the pelvic ultrasound to discuss those findings and to develop a treatment plan. A comprehens neftaly history and physical exam was performed today. We spent over 25 minutes face-to-fa ce. The patient was given precaution s. She will contact clinic if pelvic pain increases in frequency or intensity. Also notify clinic of any new symptoms associated with pelvic pain. She does not appear to have an acute pelvic infection today, but was asked to contact us Immediatel y with nausea, vomiting, fever, chills. [id number] Kamini Tan [facility] [address] [address] 09/20/2020 11:58:28 09/20/2020 13:07:30 Pain in pelvis 26702047 R10.2 This patient is a 29 -year-old female with pelvic pain. We have agreed to complete the evaluation with pelvic ultrasound . The patient will return after the pelvic ultrasound to discuss those findings and to develop a treatment plan. A comprehens neftaly history and physical exam was performed today. We spent over 25 minutes face-to-fa ce. The patient was given precaution s. She will contact clinic if pelvic pain increases in frequency or intensity. Also notify clinic of any new symptoms associated with pelvic pain. She does not appear to have an acute pelvic infection today, but was asked to contact us Immediatel y with nausea, vomiting, fever, chills. [id number] Rubio Ponce MD [facility] [address],[place] [address] 09/22/2020 11:23:04 09/22/2020 12:53:35 Pain in pelvis 28980455 R10.2 this patient is a 29-year-ol d female with longstandi ng pelvic pain. Her pelvic pain is severe. It affects her quality of life and activities of daily living. She has intense pain with intercours e. Is affecting her relationsh ips. It istemporal lyrelated to her menstrual cycle. She has been treated with oral contracept neftaly pills in the past with little effect. the patient suffers from bipolar disorder and hormonal contracept ion, hormonal treatments have a significan t effect on her psychiatri c concerns. Her pelvic ultrasound is normal. We have agreed to perform diagnostic laparoscop y [id number] Rubio Ponce MD [facility] [address],[place] [address] 10/23/2020 12:00:55 10/23/2020 12:02:09 [id number] Rubio Ponce MD [facility] [address],[place] [address] 10/27/2020 12:05:00 10/27/2020 13:30:00 Nontraumatic hemoperitoneum 99142136 K66.1 this patient is a 29-year-ol d female presents forpostopf ollow-up. She was found to have hemoperito neum on the diagnostic scope. We discussed treatment options for hemoperito neum related to the menstrual cycle. We agreed to insert Mirena IUD. She will follow up for Mirena IUD insertion. Her incisions are clean dry and intact. She recovering normally from her procedure/ surgery. [id number] Rubio Ponce MD [facility] [address],[place] [address] 11/15/2020 16:01:43 11/15/2020 23:10:09 Contraception care management 966714038 Z30.9 Mirena inserted without complicati ons. She tolerated well. [id number] Rubio Ponce MD [facility] [address] [address] 12/14/2020 15:24:39 12/14/2020 16:05:28 Contraception care management 511494201 Z30.9 This patient is a 30-year-ol d who presents for IUD check. She has no complaints . She was examined with a speculum. The cervix appears normal, the IUD string appears normally placed, the IUD was not visible. She will follow up as needed. [id number] Rubio Ponce MD [facility] [address] [address] 06/06/2022 10:29:24 06/06/2022 11:32:53 Pain in pelvis 58102366 R10.2 Hemorrhagi c cyst of ovary 796532102 N83.209 this patient is a 31-year-ol d female who presents from follow-up on ER visit. She was seen in the ER for pelvic pain. She has a 6 cm hemorrhagi c cyst of the ovary. We discussed those findings. We discussed significan ce of this finding. She continues to have pain. She has pain with movement. She has pain with bowel movement and voiding. We discussed treatment and observatio n. We discussed the details of treatment. We discussed surgical interventi on. We discussed follow-up if conservati ve therapy was undertaken . We are favoring surgery at this time. She is going to considered talk with her family. We spent over 40 minutes face-to-fa ce and made a decision to perform surgery. She may call back to schedule laparoscop ic right ovarian cystectomy to manage pain with 800 mg ibuprofen stand hydrocodon e p.r.n. [id number] Rubio Ponce MD [facility] [address] [address] 06/21/2022 14:10:19 06/24/2022 14:30:56 Postoperative care 124145944 Z48.89 Patient is a 31-year-ol d female presents for postop follow-up. She had a laparoscop ic ovarian cystectomy . Her preoperati ve pain is resolved from the surgery. Incisions are clean dry and intact. She has no complaints . She is ready to go back to work. [id number] Rubio Ponce MD [facility] [address] [address] 11/07/2023 15:20:40 11/10/2023 14:09:04 Pain in pelvis 58935976 R10.2 [facility] 522712417 Z30.9 This patient is a 32-year-ol d female who presents for pelvic pain. It is a sharp pain left side. It has been constant. It is moderately severe. Patient has a history of ovarian cysts and suspects an ovarian cyst. The pain is very similar to previous cyst. Nothing is palliative of her pain nothing is provocativ e, though intercours e hurts. We talked about treatment options and evaluation . She was examined. Her pelvic exam reveals some left-sided tenderness . We will obtain a pelvic ultrasound . The her IUD was removed today as well. She tolerated that well. We will obtain pelvic ultrasound . The patient will return for discussion of those results and her treatment options. More than 20 minutes was spent face-to-fa ce. More than 50% counseling . [id number] Kamini Tan [facility] [address] [address] 11/13/2023 14:45:45 11/13/2023 15:22:04 Pain in pelvis 79861898 R10.2 [id number] Morelia Clarke CNM [facility] [address] [address] 04/09/2024 13:45:30 04/09/2024 15:02:06 Amenorrhea 69671983 N91.2 pap done, hx HPVreviewe d UStake vitamin dailytobac co use- rec cessation [id number] Nichol Bañuelos [facility] [address] [address] 04/09/2024 13:43:44 04/09/2024 14:10:08 Uterine size for dates discrepancy 679242714 O26.849 Z3A.01 [id number] Rubio Ponce MD [facility] [address],[place] [address] 04/26/2024 15:12:17 04/26/2024 16:52:47 Abnormal cervical Papanicolaou smear 834729560 R87.619 colposcopy was performed. It appeared normal. It was an unsatisfac tory exam. ECC would have been performed she were not . Needs ECC after . [id number] [facility] [address],[place] [address] 05/14/2024 13:48:44 05/14/2024 14:19:43 screening 913066663 Z36.82 [id number] [facility] [address],[place] [address] 05/14/2024 13:51:41 05/14/2024 15:26:18 Gestation period, 13 weeks 25753304 Z3A.13 Routine an tenatal care 223969376 Z34.90 [id number] [facility] [address],[place] [address] 06/11/2024 15:40:06 06/11/2024 16:27:07 Routine care 457500816 Z34.90 Urinary symptoms 6301610 08 R39.9 Pain in pelvis 11897560 R10.[id number] [facility] [address],[place] [address] 07/09/2024 11:20:30 07/09/2024 12:39:59 screening for malformation 603447942 Z36.3 Z3A.21 [id number] Morelia Clarke CNM [facility] [address],[place] [address] 07/09/2024 11:24:30 07/09/2024 12:47:53 Gestation period, 21 weeks 49118655 Z3A.21 [id number] Morelia Clarke CNM [facility] [address],[place] [address] 08/06/2024 11:33:09 08/06/2024 12:32:28 Urinary symptoms 290510839 R39.9 Gestation period, 25 weeks 20021726 Z3A.25 [id number] Kamini Tan [facility] [address],[place] [address] 09/01/2024 13:54:07 09/01/2024 14:44:04 Small for gestational age fetus 669460683 O36.5930 Z3A.28 [id number] Morelia Clarke [facility] [address],[place] [address] 09/01/2024 14:26:22 09/01/2024 15:10:50 Gestation period, 28 weeks 84465408 Z3A.28 [id number] Morelia Clarke [facility] [address],[place] [address] 09/24/2024 14:57:10 09/24/2024 16:25:28 Gestation period, 31 weeks 87053430 Z3A.31 [id number] Morelia Clarke [facility] [address],[place] [address] 10/08/2024 13:34:04 10/08/2024 14:20:18 Gestation period, 33 weeks 47922842 Z3A.33 [id number] [facility] [address],[place] [address] 10/22/2024 14:48:30 10/25/2024 06:48:32 Small for gestational age fetus 235879789 O36.5930 O24.414 Z3A.35 [id number] OPHELIA SHER MD [facility] [address],[place] [address] 10/22/2024 14:49:10 10/22/2024 16:33:15 growth restriction 31221091 O36.5999 Gestationa l diabetes mellitus class A2 59822680 O24.414 Bipolar disorder 8596899 4 F31.9 Asthma 318458619 J45.90 9 Gestation period, 35 weeks 85122309 Z3A.35 [id number] Jessi Gardner [facility] [address],[place] [address] 10/29/2024 15:43:41 11/01/2024 15:11:18 growth restriction 85919779 O36.5999 [id number] [facility] [address],[place] [address] 10/29/2024 15:45:06 11/03/2024 23:28:31 Small for gestational age fetus 111810823 O36.5930 O24.414 Z3A.36 [id number] Morelia Clarke [facility] [address],[place] [address] 10/29/2024 15:45:30 11/02/2024 05:30:08 screening 984914460 Z36.85 [id number] [facility] [address],[place] [address] 11/05/2024 13:14:08 11/05/2024 13:55:53 Small for gestational age fetus 916249667 O36.5930 O24.414 Z3A.37 [id number] CACHOR[facility] [address],[place] [address] 11/05/2024 13:49:04 11/05/2024 14:56:48 growth restriction 99247334 O36.5999 [id number] Morelia Clarke [facility] [address],[place] [address] 11/05/2024 13:49:15 11/05/2024 15:34:40 Gestation period, 37 weeks 60955436 Z3A.37 [id number] [facility] [address],[place] [address] 11/12/2024 15:45:26 11/12/2024 17:32:29 Small for gestational age fetus 670932376 O36.5930 O24.414 Z3A.38 [id number] Morelia Clarke [facility] [address],[place] [address] 11/12/2024 15:45:37 11/12/2024 17:22:12 Gestation period, 38 weeks 86645212 Z3A.38 Health Concerns Section Related Observation LastModified by Organization Detai ls LastModified Time None Recorded Concern Status LastModified by Organization Details LastModified Time None Recorded Advance Directives Directive None Recorded Payers Encounter Date Sequence Insurance Name Policy Number Policy Chester Covered Member ID Chester Member ID Guarantor Name 11/05/2024 1 [employer] (PPO) [id number] Sunshine R [employer] [id number] Sun[employer] 11/05/2024 1 [employer] (PPO) [id number] Sun[employer] [id number] Sun[employer] 11/12/2024 1 [employer] (PPO) [id number] Sun[employer] [id number] Sun[employer] 11/12/2024 1 [employer] (PPO) [id number] Sun[employer] [id number] [employer] OBGyn Episode Ob Episode Information Episode Created Date Number of Fetuses Patient Bloodtype Patient rh Status Prepregnancy Weight lbs Domestic Partner Domestic Partner Phone Father Name Manager User Experience Status 09/16/20 20 1 CLOSED Fetus Data First Name Last Name Admitted to NICU Weight (g) Sex Living Outcome Pediatric Complications Fetus ID Race Codes Race Delivery Type 2664.85 3 M Full Term 6582 Vaginal Delivery Barrie Calculation Initial Barrie Date Initial Exam Date Initial Exam Provider Initial Ultrasound Date Last Menstrual Period Date Ultra Sound Weeks Gestation 0 Eighteen To Twenty Week Barrie Update Ultra Sound Date Fundal Height At Umbil Quickening Date Ultra Sound Latest Weeks Gestation Final Barrie Confirmed By Final Barrie Confirmed Date Final Barrie Date Ultra Sound Latest Days Gestation 0 0 Menstrual History Last Menstrual Date Menses Monthly On Bcp Conception Prior Menses Frequency Hcg Plus Date Menarche Onset Age Delivery Information Delivery Date Delivery Type Labor Anesthesia Weeks Gestation Incision Type Labor Labor Length Hrs Delivered By Post Complications Tubal Sterilization Discharge Date Comments 8 38.1 Discharge Information Feeding Method Contraceptive Method Maternal HG B and HCT Levels Ob Episode Information Episode Created Date Number of Fetuses Patient Bloodtype Patient rh Status Prepregnancy Weight lbs Domestic Partner Domestic Partner Phone Father Name Manager User Experience Status 09/16/20 20 1 CLOSED Fetus Data First Name Last Name Admitted to NICU Weight (g) Sex Living Outcome Pediatric Complications Fetus ID Race Codes Race Delivery Type 2749.67 4704 F Full Term 6581 Vaginal Delivery Barrie Calculation Initial Barrie Date Initial Exam Date Initial Exam Provider Initial Ultrasound Date Last Menstrual Period Date Ultra Sound Weeks Gestation 0 Eighteen To Twenty Week Barrie Update Ultra Sound Date Fundal Height At Umbil Quickening Date Ultra Sound Latest Weeks Gestation Final Barrie Confirmed By Final Barrie Confirmed Date Final Barrie Date Ultra Sound Latest Days Gestation 0 0 Menstrual History Last Menstrual Date Menses Monthly On Bcp Conception Prior Menses Frequency Hcg Plus Date Menarche Onset Age Delivery Information Delivery Date Delivery Type Labor Anesthesia Weeks Gestation Incision Type Labor Labor Length Hrs Delivered By Post Complications Tubal Sterilization Discharge Date Comments 0 Discharge Information Feeding Method Contraceptive Method Maternal HG B and HCT Levels Ob Episode Information Episode Created Date Number of Fetuses Patient Bloodtype Patient rh Status Prepregnancy Weight lbs Domestic Partner Domestic Partner Phone Father Name Manager User Experience Status 05/14/20 24 1 A Positive 124 OPEN Fetus Data First Name Last Name Admitted to NICU Weight (g) Sex Living Outcome Pediatric Complications Fetus ID Race Codes Race Delivery Type [id number] Problems Problem Notes 09/08 MFM consult recommendat ions: Revise EDC 9-24-46Hyiml BP carefully, obtain baseline CMP and quantitative proteinuriaFollow-up U/S for growth & AFV & development every 4 weeksAntenatal testing (e.g. NST+BPP or NST+JERICHO) if later indicatedDelivery planning (timing, mode, location): too early to determine at present [facility] M[facility] 10/08/24 230 Growth us Problem Name Start Date End Date Resolution Snomed Code Not e Mixed anxiety and depressive disorder 810988208 COVID-19 09/16/2024 [id number] bASA lucita y, serial growth US - Scheduled MFM 10/08/24 US Bipolar disorder 42011663 Impaired glucose tolerance 09/06/2024 3221573 09/06 elevated 1 hr gct checking bs QID Gestational diabetes mellitus 10/08/2024 59480186 DE referral fax ed - DT completed 10/07/24 clinical notes scanned in10/22 Lantus pen 5u@ HS increased to 7u 10/26 Asthma 426700977 growth restriction 30983868 Advanced maternal age 007911501 possibly depend ing on delivery date MFM confirmed EDC 11-21-24 Marijuana user 05/14/2024 [id number] Barrie Calculation Initial Barrie Date Initial Exam [...] Weight in lbs Pre/Post Dialysis Refused Weight 125.818150031775 BP Diastolic BP Location Tested BP Systolic [...] Type Weight in lbs Pre/Post Dialysis Refused 133.844533132395 BP Diastolic BP Location Tested BP Systolic [...] ED precautions, education done Flowsheet Date 07/09/2024 Rosales Score Blood Edema [...] Type Weight in lbs Pre/Post Dialysis Refused 139.859009679615 BP Diastolic BP Location Tested BP Systolic [...] Type Weight in lbs Pre/Post Dialysis Refused 145.6510811970 BP Diastolic BP Location Tested BP Systolic [...] Type Weight in lbs Pre/Post Dialysis Refused 150.358982954892 BP Diastolic BP Location Tested BP Systolic [...] Type Weight in lbs Pre/Post Dialysis Refused 152.086829990531 BP Diastolic BP Location Tested BP Systolic BP Type 80 121 Fetus Heart Rate Present Fetus Movement A Yes Comments Patient is having pain, Bh c ontractions, discharge, swelling,nausea and vomiting. reviewed bs log, rule in for GDM, has been trying to alter diet doing ok, will refer to [facility] for formal diet teaching discussed no juice soda, reduce carbs, +FM, precautions and education f/u 2 weeks Flowsheet Date 10/08/2024 Rosales Score Blood Edema Fundus Height Fundus Units Glucose Ketones Leukocytes Nitrite Labor Signs Protein Cervic Dilation Cervic Effacement Cervic Station Type Weight in lbs Pre/Post Dialysis Refused Weight 158.103784468962 BP Diastolic BP Location Tested BP Systolic BP Type 81 125 Fetus Heart Rate Present Fetus Movement A Yes Comments Patient is having some cramp ing, swelling, nausea and vomiting. +FM, mfm us today, doing well, had diabetic teaching at [facility]. handout given reviewed blood sugars continue diet [...] Weight in lbs Pre/Post Dialysis Refused Weight 160.323609738552 BP Diastolic BP Location Tested BP Systolic BP Type 81 L arm 123 sitting Fetus Heart Rate Present Fetus Movement A Yes Comments Patient c/o of slight nausea , along with some [place] Cruz. Good movement. EFW 5% today, UADs wnl, BPP 8/8. Discussed FGR diagnosis and recommendation for weekly [...] Weight in lbs Pre/Post Dialysis Refused Weight 164.318227715515 BP Diastolic BP Location Tested BP Systolic BP Type 84 121 Fetus Heart Rate Present Fetus Movement Comments bpp 05/15, +FM, discussed iug r will talk with [...] Type Weight in lbs Pre/Post Dialysis Refused 164.38833953516 BP Diastolic BP Location Tested BP Systolic BP Type 83 121 Fetus Heart Rate Present Fetus Movement A Yes Comments Patient is having some pain, contractions, discharge, swelling, nausea and vomiting. discussed IOL with dr ponce plan for 38 weeks, scheduled for 11/15 at [...] Type Weight in lbs Pre/Post Dialysis Refused 163.160721796241 BP Diastolic BP Location Tested BP Systolic BP Type 72 128 Fetus Heart Rate Present Fetus Movement A Yes Comments Patient is having some contr action, discharge, swelling, nausea and vomiting. efw <1% discussed with dr. ponce plan IOL today Menstrual History Last Menstrual Date [...]
--- OUTSIDE RECORDS SUMMARY | 2024-11-12 16:46 | XMS_ITS | Referral Summary ---
Author Organization [facility] Address [address] [place] [address] Care Team Providers Care Charger Tester Name Role Phone Vasile Rodriguez MD Primary Care Provider [phone] Source Comments [facility],non-owned Affiliates and Associated Physician Practices is amultiple site organization consisting of ambulatory clinics and hospital sitesin [place], [place], [place] and [place]. This disclosure is being madepursuant to the Care Everywhere program and may not contain all information available regarding this patient. Last updated 18.[facility] Encounters Date Type Department Care Team Description 10/08/2024 11:59 PM MIXER OPERATOR VACUUM PAN SALT Hospital Encounter [facility] [address] [place] [id number] Caleb James MD Discharge Disposition: Home or Self Care 09/08/2024 1:36 PM MIXER OPERATOR VACUUM PAN SALT - 09/08/2024 11:59 PM MIXER OPERATOR VACUUM PAN SALT Hospital Encounter [facility] [address] [place] [phone] Torito Lozano MD Discharge Disposition: Home or Self Care 09/08/2024 1:35 PM MIXER OPERATOR VACUUM PAN SALT Hospital Encounter [facility] [address] [place] [phone] Torito Lozano MD Discharge Disposition: Home or Self Care from Last 3 Months Allergies Active Allergy Reactions Criticality Noted Date Comments Amoxicillin Rash Medium 09/08/2024 Penicillins Rash Medium 09/08/2024 Social History Tobacco Use Types Packs/Day Years Used Date Smoking Tobacco: Every Day Cigarettes Tobacco Cessation:Ready to Q uit: Not Asked; Counseling Given: Not Answered Alcohol Use Standard Drinks/Week Comments Not Currently 0 (1 standard drink = 0.6 oz pur e alcohol) Estimated Date of Delivery Comme nts Yes 11/26/2024 Based on Ultraso und Sex and Gender Information Value Date Recorded Sex Assigned at Not on file Gender Identity Not on file Sexual Orientation Not on file Last Filed Vital Signs Vital Sign Reading Time Taken Comments Blood Pressure 136/90 09/08/2024 2:48 PM MIXER OPERATOR VACUUM PAN SALT Pulse 88 09/08/2024 2:48 PM MIXER OPERATOR VACUUM PAN SALT Temperature - - Respiratory Rate - - Oxygen Saturation - - Inhaled Oxygen Concentration - - Weight 68 kg (150 lb) 09/08/2024 2:48 PM MIXER OPERATOR VACUUM PAN SALT Height 152.4 cm (5') 09/08/2024 2:48 PM MIXER OPERATOR VACUUM PAN SALT Body Mass Index 29.29 09/08/2024 2:48 PM MIXER OPERATOR VACUUM PAN SALT Plan of Treatment Not on file Procedures Procedure Name Priority Date/Time Associated Diagnosis Comments SONOGRAM - COMPLETE Routine 09/08/2024 1 :58 PM MIXER OPERATOR VACUUM PAN SALT Encounter for ultrasound to assess growth (HCC) IUGR (intrauterine growth retardation) affecting mother, third trimester, other fetus (HCC) 29 weeks gestation of ([facility]) Encounter for screening ([facility]) from Last 3 Months Results * SONOGRAM - COMPLETE (09/08/2024 1:58 PM MIXER OPERATOR VACUUM PAN SALT) Linked Results Indication ======== PCOS, Irregular periods, Suspected IUGR Tobacco and Marijuana Use History ====== OB History 3. Para 2 Lab Tests Test Date Result NIPT Low risk, Female (per patient) Maternal Assessment Physical Exam Height 152 cm, 5 ft 0 in. Weight 68 kg, 150 lb. Initial weight 54 kg, 118 lb. BMI 29.30 kg/m . Initial BMI 23.05 kg/m . Weight gain 15 kg, 32 lb Method ====== Transabdominal ultrasound. View: Sufficient ========= العلي . Number of fetuses: 1 Dating ====== Date Details Gest. age MARIUSZ LMP 02/13/2024 Cycle: irregular cycle 29 w + 5 d 11/19/2024 Previous U/S 04/09/2024 GA, GA 7 w + 0 d 28 w + 5 d 11/26/2024 U/S 09/08/2024 based upon AC, BPD, Femur, HC 28 w + 0 d 12/01/2024 Assigned dating based on ultrasound (GA), selected on 09/08/2024 28 w + 5 d 11/26/2024 General Evaluation Cardiac activity present. FHR 132 bpm. Presentation: cephalic Placenta: Placental site: anterior Umbilical cord: Cord vessels: 3 vessel cord. Insertion site: normal insertion Amniotic fluid: Amount of AF: normal. MVP 4.7 cm. JERICHO 11.4 cm. Q1 4.7 cm, Q2 0.7 cm, Q3 3.1 cm, Q4 3.0 cm Biometry BPD 68.7 mm 27w 4d 10% Hadlock HC 259.4 mm 28w 1d 9% Hadlock Cerebellum tr 35.1 mm 67% [place] AC 242.3 mm 28w 3d 36% Hadlock Femur 51.8 mm 27w 5d 11% Hadlock Humerus 47.1 mm 27w 5d 17% Black HC / AC 1.07 Weight Calculation: EFW 1,179 g 19% Hadlock EFW (lb,oz) 2 lb 10 oz EFW by Hadlock ([id number]-[id number]) Head / Face / Neck Biometry: Cephalic index 0.74 6% Nicolaides CM 7.5 mm 71% Nicolaides SGA, appropriate Growth Overview Exam date GA BPD (mm) HC (mm) AC (mm) FL (mm) HL (mm) EFW (g) 09/08/2024 28w 5d 68.7 10% 259.4 9% 242.3 36% 51.8 11% 47.1 17% 1179 19% Anatomy The following structures appear normal: Head / Neck Cranium. Lateral ventricles. Choroid plexus. Midline falx. Cavum septi pellucidi. Cerebellum. Cisterna magna. Thalami. Nuchal fold. Face Lips. Profile. Nose. Nasal bone. Orbits. Heart / Thorax 3-vessel view. 9-heaqoh-gxvfnnu view. Situs. Diaphragm. Abdomen Cord insertion. Stomach. Kidneys. Bladder. Bowel. Genitals. Spine Cervical spine. Thoracic spine. Lumbar spine. Sacral spine. Extremities / Skeleton Arms. Hands. Legs. Feet. The following structures could not be adequately visualized: Heart / Thorax 4-chamber view. RVOT view. LVOT view. Aortic arch view. Bicaval view. Ductal arch view. Great vessels. Right lung. Left lung. sex: female. Biophysical Profile 2: breathing movements 2: Gross body movements 2: tone 2: Amniotic fluid volume 05/13 Biophysical profile score Doppler Umbilical Artery: PI 1.29 93% Shelly RI 0.72 82% Shelly PS -42.41 cm/s ED 12.11 cm/s TAmax -23.31 cm/s MD 11.95 cm/s S / D 3.56 78% Shelly HR 137 bpm Maternal Structures Right Ovary Appears normal Left Ovary Appears normal Impression ========= * العلي IUP at 29w5d of gestation by stated EDC from LMP She states menstrual cycles preceeding her LMP were irregular At 8w0d by LMP, the CRL = 7w0d, revising EDC to October 26 and EGA today 28w5d * Referred to [facility] for obstetrical U/S & request for consult secondary to: Suspected growth restriction (FGR) / intrauterine growth restriction (IUGR) * Today's ultrasound (U/S) findings: Living العلي intrauterine fetus growth is in the normal range by revised EDC Amniotic fluid volume appears normal Placenta location appears normal Comprehensive anatomic survey appears normal, but is incomplete Umbilical artery (UA) Doppler: normal end-diastolic blood flow Biophysical profile (BPP) is normal (05/13) PAST MEDICAL & OBSTETRICAL HISTORY * Medications: vitamins & see PMH below * Past Medical History (PMH): No CHTN, no DM, no thyroidopathy, no VTE, no SLE Asthma, on PRN albuterol inhaler History of anxiety & bipolar depression & migraines, currently stable on no meds Nausea & vomiting of (NVP), on PRN ondansetron (Zofran) * Past Surgical History: Dx L/scope, Ovarian cyst * Past Obstetrical History: G1: 39 wk 2948 gm G2: 38 wk 2381 gm (IUGR) G3: Current Advanced maternal age (AMA) 34 years at the EDC, a cf-DNA is reportedly low-risk * Family history of anomalies, syndromes or developmental delay: MOB mother bicuspid aortic valve & coarctation * Social History: ongoing tobacco & cannabis use * Physical Examination: BP = 130/90 then 126/82 mmHg, P = 88 bpm * Laboratory data: Today urine dipstick: glucose (0), ketones (tr), protein (tr), blood (0), leukocytes (0) I did review available laboratory results, 1-hr GCT = 143 mg/dL ASSESSMENT العلي IUP at 28w5d of gestation by REVISED EDC from early U/S Referred for suspected growth restriction (FGR) / intrauterine growth restriction (IUGR) Today's U/S shows normal interval growth & amniotic fluid volume She does have risk factors (e.g. prior IUGR, smoking, AMA) COUNSELING & RECOMMENDATIONS * Methods for Estimating the Due Date The ACOG CO-700 recommends revising the EDC if the discrepancy is: Up to 8w6d >5 days by CRL 9w0d to 13w6d >7 days by CRL 14w0d to 15w6d >7 days by BPD+HC+AC+FL 16w0d to 21w6d >10 days by BPD+HC+AC+FL 22w0d to 27w6d >14 days by BPD+HC+AC+FL 28w0d & beyond >21 days by BPD+HC+AC+FL References cited in this section: The 2017 ACOG Committee Opinion #700 Methods for Estimating the Due Date * In my best medical opinion, I would advise: I think it best to revise the EDC to October 26 Watch BP carefully, obtain baseline CMP and quantitative proteinuria She states she is starting daily CBG monitoring instead of GTT Smoking (cigarettes, cannabis) risks were discussed & cessation was strongly encouraged Follow-up U/S for growth & AFV & development every 4 weeks testing (e.g. NST+BPP or NST+JERICHO) if later indicated Delivery planning (timing, mode, location): too early to determine at present COMMENTS * Thank you very much for requesting [facility] participation in her obstetrical care * Findings were explained & questions were addressed & precautions were given to patient * U/S does not detect all structural, genetic & functional yoxqcwob-mjauc-auf cental abnormalities * Telemedicine services were performed for this U/S examination & [facility] consultation Patient's identity was confirmed at the [facility] office Appropriateness of the telehealth consult was confirmed Informed consent for telemedicine services was obtained & scanned into EMR Modality was secure interactive audio-video session using Rebyoo/Festicket Patient site location was [facility] & nurse presenter was [place]ine Park Distant site provider was Torito Lozano MD & location was home office Consult = 45 minutes total time, including record review & counseling & coordination of care Follow-up ======== Follow up ultrasound in 4 weeks for growth and to complete anatomic survey Coding ====== Procedures 34265: US Preg Uterus Detailed 78204: Umbilical Doppler Smart[place] PACS Anatomical Region Laterality Modality Other 09/08/2024 1:58 PM MIXER OPERATOR VACUUM PAN SALT R Jose Mejia MD [facility] ORDERABLES from Last 3 Months Care Teams Charger Tester Relationship Specialty Start Date End Date Vasile Rodriguez MD [address] [place] [address] PCP - General 06/17/22
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
--- OUTSIDE RECORDS SUMMARY | 2024-11-12 16:46 | XMS_ITS | Referral Summary ---
Author Organization [facility] Address [address] [place] [address] Care Team Providers Care Decommissioning Well Site Manager Name Role Phone Anh Apodaca MD Unavailable [phone] Vasile Rodriguez MD Primary Care Provider [phone] Allergies Active Allergy Reactions Criticality Noted Date [...] for patient to have a echo at [facility]. Tobacco use 03/30/2018 Overview (03/30/2018): Patient has [...] opted for NIPT NIPT; drawn today at [facility]. 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 I indicated that prognosis may range from normal variant to association with significant neurodevelopmental abnormalities. We will arrange for patient to have a MRI through the [facility] in [facility] and notify patient. We discussed that the [...] (03/30/2018): Controlled on Albuterol inhaler as needed. 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
--- OUTSIDE RECORDS SUMMARY | 2024-11-12 16:46 | XMS_ITS | Patient Health Summary ---
Author Organization [facility] Address [address] [place] [address] Care Team Providers Care Coating Mixer Name Role Phone Vasile Rodriguez MD Primary Care Provider [phone] Note from [facility],non-owned Affiliates and Associated Physician Practices is amultiple site organization consisting of ambulatory clinics and hospital sitesin [place], [place], [place] and [place]. This disclosure is being madepursuant to the Care Everywhere program and may not contain all information available regarding this patient. Last updated 18.[facility] Allergies * Amoxicillin(Rash) -Medium Criticality * Penicillins(Rash) -Medium Criticality Social History Tobacco Use Types Packs/Day Years [...] Comments Blood Pressure 136/90 09/08/2024 2:48 PM AWARD CLERK Pulse 88 09/08/2024 2:48 PM AWARD CLERK Temperature - - Respiratory Rate - - Oxygen Saturation - - Inhaled Oxygen Concentration - - Weight 68 kg (150 lb) 09/08/2024 2:48 PM AWARD CLERK Height 152.4 cm (5') 09/08/2024 2:48 PM AWARD CLERK Body Mass Index 29.29 09/08/2024 2:48 PM AWARD CLERK Procedures * SONOGRAM - COMPLETE(Performed 09/08/2024) Performed for Encounter for ultrasound to assess growth (HCC), IUGR (intrauterine growth retardation) affecting mother, third trimester, other fetus (HCC), 29 weeks gestation of (HCC), Encounter for screening (HCC) Results * SONOGRAM - COMPLETE (09/08/2024 1:58 PM AWARD CLERK) Linked Results Indication ======== PCOS, Irregular periods, [...] 2 lb 10 oz EFW by Hadlock ([id number]) Head / Face / Neck Biometry: Cephalic [...] bone. Orbits. Heart / Thorax 3-vessel view. 8-eihjdl-iiuoide view. Situs. Diaphragm. Abdomen Cord insertion. Stomach. [...] and EGA today 28w5d * Referred to [facility] for obstetrical U/S & request for [...] * Thank you very much for requesting [facility] participation in her obstetrical care * Findings were explained & questions were addressed & precautions were given to patient * U/S does not detect all structural, genetic & functional acbgkbzm-peppy-nys cental abnormalities * Telemedicine services were performed for this U/S examination & [facility] consultation Patient's identity was confirmed at the [facility] office Appropriateness of the telehealth consult was confirmed Informed consent for telemedicine services was obtained & scanned into EMR Modality was secure interactive audio-video session using Flash Valet/SimpliVity Patient site location was [facility] Clinic & nurse presenter was [place]ine [place] Distant site provider was Torito Lozano MD & location was home office Consult = 45 minutes total time, including record review & counseling & coordination of care Follow-up ======== Follow up ultrasound in 4 weeks for growth and to complete anatomic survey Coding ====== Procedures 48227: US Preg Uterus Detailed [id number]: Umbilical Doppler [facility] [employer] PACS Anatomical Region Laterality Modality Other 09/08/2024 1:58 PM AWARD CLERK R Jose Mejia MD [facility] ORDERABLES Care Teams Coating Mixer Relationship Specialty Start Date End Date Vasile Rodriguez MD [address] [place] [phone] PCP - General 06/17/22
--- OUTSIDE RECORDS SUMMARY | 2024-11-12 16:46 | XMS_ITS | Clinical Summary ---
Author Organization [facility] Address [address] [place] [address] Care Team Providers Care Sas Analyst Name Role Phone Vasile Rodriguez MD Primary Care Provider [phone] Source Comments [facility],non-owned Affiliates and Associated Physician Practices is amultiple site organization consisting of ambulatory clinics and hospital sitesin [place], [place], [place] and [place]. This disclosure is being madepursuant to the Care Everywhere program and may not contain all information available regarding this patient. Last updated 18.[facility] Allergies Active Allergy Reactions Criticality Noted Date Comments Amoxicillin Rash Medium 09/08/2024 Penicillins Rash Medium 09/08/2024 Encounters Date Type Department Care Team Description 10/08/2024 11:59 PM LION TRAINER Hospital Encounter [facility] [address] [place] [id number] Caleb James MD Discharge Disposition: Home or Self Care 09/08/2024 1:36 PM LION TRAINER - 09/08/2024 11:59 PM LION TRAINER Hospital Encounter [facility] [address] [place] [id number] Torito Lozano MD Discharge Disposition: Home or Self Care 09/08/2024 1:35 PM LION TRAINER Hospital Encounter [facility] [address] [place] [id number] Torito Lozano MD Discharge Disposition: Home or Self Care from Last 3 Months Family History Medical History Relation Name Comments Other - Cardiac Mother Thyroid Disease Mother Relation Name Status Comments Maternal Grandfather Maternal Grandmother Alive Mother Alive Social History Tobacco Use [...] Comments Blood Pressure 136/90 09/08/2024 2:48 PM LION TRAINER Pulse 88 09/08/2024 2:48 PM LION TRAINER Temperature - - Respiratory Rate - - Oxygen Saturation - - Inhaled Oxygen Concentration - - Weight 68 kg (150 lb) 09/08/2024 2:48 PM LION TRAINER Height 152.4 cm (5') 09/08/2024 2:48 PM LION TRAINER Body Mass Index 29.29 09/08/2024 2:48 PM LION TRAINER Plan of Treatment Health Maintenance Due Date Last Done Comments PAP SMEAR 1989 HIV SCREENING 2004 HEPATITIS C SCREENING 11/10/2007 DTAP/TDAP/TD VACCINES (1 - Tdap) 2008 HEPATITIS B VACCINE (1 of 3 - 19+ 3-dose series) 2008 PNEUMOCOCCAL VACCINE (1 of 2 - PCV) 2008 COVID-19 VACCINE (3 - 2023-2 5 season) 2024 02/01/2021, 12/23/2020 INFLUENZA VACCINE (#1) 2024 7, 11/09/2015 OB-ONE HOUR GLUCOSE 08/20/2024 OB-TDAP CURRENT 08/27/2024 OB-RHOGAM INJECTION 09/03/2024 DEPRESSION SCREENING 10/06/2024 OB-GROUP B STREP SCREEN 10/22/2024 ZOSTER VACCINE (1 of 2) 2039 HIB VACCINE Aged Out No longer eligi ble based on patient's age to complete this topic HPV VACCINE Aged Out No longer eligi ble based on patient's age to complete this topic MENINGOCOCCAL (Group B) VACCINE Aged Out No longer eligible b ased on patient's age to complete this topic MENINGOCOCCAL VACCINE Aged Out No carley albert eligible based on patient's age to complete this topic Respiratory Syncytial Virus (RSV) Vaccine Pt: or over 60 yrs (No Doses Required) Completed Procedures Procedure Name Priority Date/Time Associated Diagnosis Comments SONOGRAM - COMPLETE Routine 09/08/2024 1 :58 PM LION TRAINER Encounter for ultrasound to assess growth (HCC) IUGR (intrauterine growth retardation) affecting mother, third trimester, other fetus (HCC) 29 weeks gestation of (HCC) Encounter for screening (HCC) from Last 3 Months Results * SONOGRAM - COMPLETE (09/08/2024 1:58 PM LION TRAINER) Linked Results Indication ======== PCOS, Irregular periods, [...] 2 lb 10 oz EFW by Hadlock ([id number]) Head / Face / Neck Biometry: Cephalic [...] bone. Orbits. Heart / Thorax 3-vessel view. 1-nmlajc-qqntacl view. Situs. Diaphragm. Abdomen Cord insertion. Stomach. [...] and EGA today 28w5d * Referred to [facility] for obstetrical U/S & request for [...] * Thank you very much for requesting [facility] participation in her obstetrical care * Findings were explained & questions were addressed & precautions were given to patient * U/S does not detect all structural, genetic & functional gutifway-vudxx-tuh cental abnormalities * Telemedicine services were performed for this U/S examination & MFM consultation Patient's identity was confirmed at the [facility] office Appropriateness of the telehealth consult was confirmed Informed consent for telemedicine services was obtained & scanned into EMR Modality was secure interactive audio-video session using Wheel[employer] Patient site location was [facility] & nurse presenter was Maxine Park Distant site provider was Torito Lozano MD & location was home office Consult = 45 minutes total time, including record review & counseling & coordination of care Follow-up ======== Follow up ultrasound in 4 weeks for growth and to complete anatomic survey Coding ====== Procedures 80334: US Preg Uterus Detailed 35486: [facility] Laterality Modality Other 09/08/2024 1:58 PM LION TRAINER R Jose Mejia MD [facility] ORDERABLES from Last 3 Months Care Teams Sas Analyst Relationship Specialty Start Date End Date Vasile Rodriguez MD [address] [place] [id number] PCP - General 06/17/22
--- OUTSIDE RECORDS SUMMARY | 2024-11-12 16:46 | XMS_ITS | Continuity of Care Document ---
Author Organization [facility] Address [address] [place] [address] [place] [address] Assessment No assessment recorded. Plan of Treatment Reminders Order Date Submit Date Provider Last Modified By Organization Details Last Modified Time Details Appointments NST 2024 03:00P M NST SCHEDULE Not available Not available Not available U/S OB BPP 2024 03:30P M ULTRASOUND Not available Not available Not available OB ROUTINE 2024 03:45P M Morelia Clarke CNM Not available Not available Not available INDUCTI [...] recorde d. Surgeries None recorde d. Imaging US, obstetr ic, follow- up 2024 [facility] rodrigue [place], [address], [address], [place], [address], 11/12/2024 17:31:57 US, obstetr ic, biophys ical profile + non-str ess test 2024 025 [facility], [facility] [address], [place], [address], 11/12/2024 17:31:57 US, doppler , umbilic al artery velocim etry 2024 025 [facility], [facility] [address], [place], [address], 11/12/2024 17:31:57 Medication Orders None recorde d. Patient TargetsNo targets recorded. Patient InstructionsNo instructions recorded. Reason for Referral None Reported. Results Created Date Observation Date Name Description Value Unit Range Abnormal Flag Note LastModifiedBy Organization Detail LastModifiedTime 05/14/20 24 05/17/2024 US, obste tric, nucha l trans lucen cy No observ ation record ed. [facility] [address], [place], [address], 05/17/2024 18:16:35 05/14/20 24 05/14/2024 US, obste tric, nucha l trans lucen cy No observ ation record ed. JALEN Ann [address], [place], [address], 05/17/2024 11:43:56 07/09/20 24 07/09/2024 US, obste tric, 2nd or 3rd trime ster No observ ation record ed. [email or web address] [place] [address], [place], [address], 07/09/2024 12:34:53 07/09/20 24 07/09/2024 US, obste tric, 2nd or 3rd trime ster No observ ation record ed. JALENGIORGIO Santanae [address], [place], [address], 07/15/2024 11:31:50 09/01/20 24 09/01/2024 US, obste tric, follo w-up No observ ation record ed. [facility] [address], [place], [address], 09/01/2024 17:26:07 09/01/20 24 09/01/2024 US, doppl er, umbil ical arter y veloc imetr y No observ ation record ed. [facility] [address], [place], [address], 09/01/2024 17:26:19 09/01/20 24 09/01/2024 US, obste tric, follo w-up No observ ation record ed. Marissa [address], [place], [address], 09/06/2024 22:39:07 09/08/20 24 09/08/2024 US, obste tric, follo w-up No observ ation record ed. [email or web address] [facility] [address] , [place], [address], 09/09/2024 18:35:51 09/08/20 24 09/08/2024 US, obste tric, follo w-up No observ ation record ed. [email or web address] [facility] [address] [place], [address], 09/14/2024 15:09:53 10/22/19 25 10/22/2024 US, obste tric, follo w-up No observ ation record ed. [email or web address] Mar[address], [place], [address], 10/28/2024 18:29:41 10/22/19 25 10/22/2024 US, obste tric, follo w-up No observ ation record ed. [facility] [address], [place], [address], 10/22/2024 18:04:21 10/22/19 25 10/22/2024 US, obste tric, bioph ysica l profi le No observ ation record ed. [facility] [address], [place], [address], 10/22/2024 18:04:31 10/22/19 25 10/22/2024 US, doppl er, umbil ical arter y veloc imetr y No observ ation record ed. [facility] [address], [place], [address], 10/22/2024 18:04:42 10/29/19 25 10/29/2024 non-s tress test No observ ation record ed. [email or web address] [place] [address], [place], [address], 10/29/2024 16:50:02 10/29/19 25 10/29/2024 US, obste tric, bioph ysica l profi le + non-s tress test No observ ation record ed. [facility] [address], [place], [address], 10/29/2024 17:54:13 10/29/19 25 10/29/2024 US, doppl er, umbil ical arter y veloc imetr y No observ ation record ed. [facility] [address], [place], [address], 10/29/2024 17:54:23 10/29/19 25 10/29/2024 US, obste tric, follo w-up No observ ation record ed. rodrigue Ann [address], [place], [address], 11/02/2024 17:54:10 11/02/19 25 10/29/2024 US, obste tric, bioph ysica l profi le + non-s tress test No observ ation record ed. [email or web address] Mar[address], [place], [address], 11/03/2024 23:11:32 11/02/19 25 10/29/2024 US, obste tric, bioph ysica l profi le + non-s tress test No observ ation record ed. [email or web address] Mar[address], [place], [address], 11/03/2024 23:11:32 11/05/19 25 11/05/2024 US, obste tric, bioph ysica l profi le + non-s tress test No observ ation record ed. [facility] [address], [place], [address], 11/05/2024 17:37:50 11/05/19 25 11/05/2024 US, doppl er, umbil ical arter y veloc imetr y No observ ation record ed. [facility] [address], [place], [address], 11/05/2024 17:38:00 11/05/19 25 11/05/2024 US, obste tric, follo w-up No observ ation record ed. [email or web address] [address] [address], [place], [address], 11/08/2024 09:54:59 11/05/19 25 11/05/2024 non-s tress test No observ ation record ed. [facility] [address], [place], [address], 11/05/2024 14:54:30 11/12/19 25 11/12/2024 imagi ng/di agnos tic resul t No observ ation record ed. [email or web address] [address], [place], [address], 11/12/2024 17:28:49 11/12/19 25 US, obste tric, follo w-up No observ ation record ed. [facility] [address], [place], [address], 11/12/2024 17:31:28 11/12/19 25 US, obste tric, bioph ysica l profi le + non-s tress test No observ ation record ed. [facility] [address], [place], [address], 11/12/2024 17:31:32 11/12/19 25 US, doppl er, umbil ical arter y veloc imetr y No observ ation record ed. [facility] [address], [place], [address], 11/12/2024 17:31:36 Result Notes None recorded. Problems Name Problem SNOMED Code Status Onset Date Resolution Date Notes Provider Name and Address Organization Details Recorded Time Normal pregnanc y in multigra shelbi [id number] 68734 Completed 201712/14/2020 Encounte r for suprvsn of normal pregnanc y, first trimeste r;Practi ce ID: [address] [facility] 15:42:11 Antenata l screenin g Completed 201712/14/2020 Encounte r for other specifie d antenata l screenin g;Practi ce ID: 0001 Chuyita Rodriguez [facility] 15:40:48 Mild hypereme sis gravidar um [id number] Completed 201712/14/2020 Mild hypereme sis gravidar um;Pract ice ID: [address] [facility] 15:42:08 Gestatio n period, 20 weeks [id number] Completed 201712/14/2020 20 weeks gestatio n of pregnanc y;Practi ce ID: 0001 Chuyita santos, [facility] 15:41:25 Gestatio n period, 19 weeks [id number] Completed 201712/14/2020 19 weeks gestatio n of pregnanc y;Practi ce ID: 0001 Chuyita santos, [facility] 15:41:23 Antenata l screenin g for malforma tion Completed 201712/14/2020 Encounte r for antenata l screenin g for malforma tions;Pr actice ID: 0001 [facility] 15:40:51 Palpitat ions [id number] Completed 201712/14/2020 Palpitat ions;Pra ctice ID: 0001 [facility] 15:42:13 Dizzines s and giddines s 407703631 Completed 201712/14/2020 Dizzines s and giddines s;Practi ce ID: 0001 [facility] 15:40:59 Pregnanc y, childbir th and puerperi um finding Completed 201712/14/2020 Oth pregnanc y related conditio ns, third trimeste r;Practi ce ID: 0001 Chuyita santos, [facility] 15:40:56 Gestatio n period, 28 weeks [id number] Completed 201712/14/2020 28 weeks gestatio n of pregnanc y;Practi ce ID: 0001 [facility] 15:41:27 Gestatio n period, 30 weeks [id number] Completed 201712/14/2020 30 weeks gestatio n of pregnanc y;Practi ce ID: 0001 Chuyita santos, [facility] 15:41:29 Gestatio n period, 32 weeks [id number] Completed 201712/14/2020 32 weeks gestatio n of pregnanc y;Practi ce ID: 0001 Chuyita santos, [facility] 15:41:[address] Concept Completed 201712/14/2020 Maternal care for oth abnormal ity and damage, unsp;Pra ctice ID: 0001 Chuiyta santos, [facility] 15:42:27 finding Completed 201712/14/2020 Matern care for oth or susp poor fetl grth, third tri, unsp;Pra ctice ID: 0001 Chuyita santos, [facility] 15:41:01 Gestatio n period, 33 weeks [id number] Completed 201712/14/2020 33 weeks gestatio n of pregnanc y;Practi ce ID: 0001 Chuyita santos, [facility] 15:41:33 Gestatio n period, 34 weeks [id number] Completed 201712/14/2020 34 weeks gestatio n of pregnanc y;Practi ce ID: 0001 Chuyita santos, [facility] 15:41:35 Finding of defecati on Completed 201712/14/2020 Constipa tion, unspecif ied;Prac gelacio ID: 0001 Chuyita santos, [facility] 15:41:13 Complica tion of pregnanc y, childbir th and/or puerperi [id number] Completed 201712/14/2020 Oth diseases and conditio ns compl preg/chl dbrth;Pr actice ID: 0001 Chuyita santos [facility] 15:42:41 Right lower quadrant pain 536092453 Completed 201712/14/2020 Right lower quadrant pain;Pra ctice ID: 0001 Chuyita santos [facility] 15:42:19 Gestatio n period, 35 weeks [id number] Completed 201712/14/2020 35 weeks gestatio n of pregnanc y;Practi ce ID: 0001 [facility] 15:41:[address] Concept Completed 201712/14/2020 Matern care for abnlt fetl hrt rate or rhym, 3rd tri, unsp;Pra ctice ID: 0001 [facility] 15:42:[address] Concept Completed 201712/14/2020 Maternal care for oth problems , third trimeste r, unsp;Pra ctice ID: 0001 [facility] 15:42:31 Gestatio n period, 36 weeks [id number] Completed 201712/14/2020 36 weeks gestatio n of pregnanc y;Practi ce ID: 0001 [facility] 15:41:42 Gestatio n period, 37 weeks [id number] Completed 201712/14/2020 37 weeks gestatio n of pregnanc y;Practi ce ID: 0001 [facility] 15:41:44 Gestatio n period, 38 weeks [id number] Completed 201712/14/2020 38 weeks gestatio n of pregnanc y;Practi ce ID: 0001 Chuyita santos [facility] 15:41:59 heart finding Completed 201712/14/2020 Abnlt in heart rate and rhythm comp labor and delivery ;Practic e ID: 0001 Chuyita santos [facility] 15:41:08 Single live [id number] Completed 201712/14/2020 Single live ;Pr actice ID: 0001 Chuyita santos [facility] 15:42:25 Infectio n screenin g Completed 201612/14/2020 Encounte r for screenin g for oth infec/pa rastc diseases ;Recorde d Elsewher e: No Locat ion: [facility] S ource: EHR Mental Tester shelly: N Practi ce ID: 0001 Leonidas lable Time: 02:30:00 PM Chuyitacarlyn santos [facility] 15:42:06 Past pregnanc y history of gestatio nal diabetes mellitus 180729999 Completed 201712/14/2020 Personal history of gestatio nal diabetes ;Recorde d Elsewher e: No Locat ion: [facility] S ource: EHR Mental Tester shelly: N Practi ce ID: 0001 Leonidas lable Time: 02:41:39 PM Chuyita santos [facility] 15:42:04 Syphilis test finding [id number] Completed 201612/14/2020 Encntr screen for infectio ns w sexl mode of transmis s;Record ed Elsewher e: No Locat ion: [facility] S ource: EHR Mental Tester shelly: N Practi ce ID: 0001 Leonidas lable Time: 02:30:00 PM Chuyitacarlyn Rodriguez [facility] 15:42:36 Gestatio n less than 9 weeks [id number] Completed 201612/14/2020 Less than 8 weeks gestatio n of pregnanc y;Record ed Elsewher e: No [facility]: E[facility] Mental Tester shelly: N Christinati ce ID: 0001 Leonidas lable Time: 03:00:00 PM Chuyita Rodriguez [facility], [facility] 15:41:21 Secondar y amenorrh ea 841740307 Completed 201612/14/2020 Secondar y amenorrh ea;Recor ded Elsewher e: No Locat ion: [facility] S ource: EHR Mental Tester shelly: N Practi ce ID: 0001 Leonidas lable Time: 02:30:00 PM Chuyita Rodriguez [facility], [facility] 15:42:21 Uterine size for dates discrepa ncy Completed 201610/27/2020 Uterine size-ethan e discrepa ncy, first trimeste r;Record ed Elsewher e: No Locat ion: [facility] S ource: EHR Mental Tester shelly: N Christinati ce ID: 0001 Leonidas lable Time: 03:00:00 PM Rubio Ponce MD [address], [place], [address], [facility] 12:40:02 Body mass index 30+ - obesity 858944233 Completed 201612/14/2020 Body mass index (BMI) 32.0-32. 9, adult;Re corded Elsewher e: No Locat ion: [facility] S ource: EHR Mental Tester shelly: N Practi ce ID: 0001 Leonidas lable Time: 02:30:00 PM Chuyita Rodriguez [facility], [facility] 15:40:54 Pregnanc y detectio n examinat ion Completed 201612/14/2020 Encounte r for pregnanc y test, result positive ;Recorde d Elsewher e: No Locat ion: [facility] S ource: EHR Mental Tester shelly: N Fredrick ce ID: 0001 Leonidas lable Time: 02:30:00 PM Chuyita santos, [facility] 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 1 15:42:33 Pregnanc y 71372964 Active 2023 Yamileciara Garcia [facility], [facility] 4 14:52:17 Asthma 516664290 Active Yamile Garcia [facility], [facility] 4 14:52:37 Mixed anxiety and depressi ve disorder 323281011 Active Yaimle Kilpatricktz [facility], [facility] 4 14:53:21 Advanced maternal age 443658698 Active possibly dependin g on delivery date MFM confirme d EDC 11-21-24 Mackenzie Hughes [facility], [facility] 4 15:04:47 Marijuan a user 280941404 Active 2023 Joselo Cho [facility], [facility] 4 15:38:38 Bipolar disorder 97176779 Active Valeryyolie Cho [facility] 4 15:39:21 Impaired glucose toleranc e 1505130 Active 2023 122 elevated 1hr gct checking bs QID Mackenzie Hughes null, [facility] 4 13:21:55 Impaired glucose toleranc e 6515128 Active 2023 12/2 elevated 1hr gct checking bs QID Mackenzie santos [facility] 4 13:21:55 COVID-19 986223269 Active 2023 bASA daily, serial growth US - Schedule d MFM 10/08/24 Mackenzie santos [facility] 4 16:13:35 COVID-19 321952281 Active 2023 bASA daily, serial growth US - Schedule d MFM 10/08/24 Mackenzie santos [facility] 4 16:13:35 Gestatio nal diabetes mellitus 22266678 Active 2024 DE referral faxed - DT complete d 10/07/24 clinical notes scanned in 10/22 Lantus pen 5u@ HS increase d to 7u 10/26 Mackenzie santos [facility] 5 14:23:31 Gestatio nal diabetes mellitus 45938538 Active 2024 DE referral faxed - DT complete d 10/07/24 clinical notes scanned in 10/22 Lantus pen 5u@ HS increase d to 7u 10/26 Mackenzie santos [facility] 5 14:23:31 growth restrict ion 98638672 Active Mackenzie santos, [facility] 5 13:56:32 growth restrict ion 74268650 [facility] 13:56:32 Problem Notes None recorded. Procedures Surgical History Date Name Laterality Status Provider Name and Address Organization Details Recorded Time 04/26/20 24 Colposcopy completed Rubio Ponce MD [address], [place], [address], [facility] 04/26/2024 16:17:25 04/26/20 24 Colposcopy completed Carolina Martinez [facility] 04/26/2024 15:30:08 04/09/20 24 Date of Last Pap Smear completed Carolina Martinez [facility] 04/26/2024 15:28:58 11/07/19 24 IUD Removal completed Rubio Ponce MD [address], [place], [address], [place] [facility] 11/07/2023 16:53:17 06/13/20 22 LAPAROSCOPIC OVARIAN CYSTECTOMY (SURG) completed Ethel Gould [facility] 06/13/2022 14:59:07 11/15/19 21 IUD Insertion completed Rubio Ponce MD [address], [place], [address], [facility] 11/15/2020 19:16:40 10/20/19 21 LAPAROSCOPY, DIAGNOSTIC (SURG) completed [facility] 10/23/2020 18:13:46 Imaging Results Imaging Date Name Status LastModified by Organiz ation Details LastModified Time 11/12/2024 US, obstetric, follow-up active [facility] [address], [place], [address], 11/12/2024 17:31:28 11/12/2024 US, obstetric, biophysical profile + non-stress test active [facility] [address], [place], [address], 11/12/2024 17:31:32 11/12/2024 US, doppler, umbilical artery velocimetry active [facility] [address], [place], [address], 11/12/2024 17:31:36 Procedure Notes None recorded. Medical Equipment None Reported. Allergies Allergen ID Allergen Name Allergen Category Reaction Reaction Severity Criticality Documentation Date Start Date Code Code System Note Provider Name and Address Organization Details Recorded Time 2954 amoxicill in medicatio n hives Not available Not available 09/16/2020 723 RxNorm Chuyita Rodriguez [facility] 0 12:36:28 2955 Product containin g penicilli n and antibioti c (product) medicatio n hives Not available Not available 09/16/2020 75665 05 SNOMED Chuyita santos [facility] 0 12:36:39 Medications Name Sig Start Date Stop Date Status Note LastModified by Organization Details LastModified Time cyclobenz aprine 10 mg tablet take 1 tablet by oral route 2 times every day 06/09 completed Prescrib ed Elsewher e: No Locat ion: [facility] odify By: christine gallegosuntloi DateTime : 03/18/20 [...] Prescrib ed Elsewher e: No [facility] By: amarabella Berry ncounter DateTime : 04/09/20 18 11:00:00 [...] Prescrib ed Elsewher e: No Locat ion: [facility] odify By: amarabella Berry ncounter DateTime : 10/10/19 18 12:05:55 [...] Elsewher e: No Locat ion: [facility]i [facility] odify By: francesca syed DateTime : 10/14/19 18 08:30:00 AM Not Available Not Available Not Available meclizine 25 mg tablet take 1 tablet by oral route 3 times every day as needed 06/09 completed Prescrib ed Elsewher e: No Locat ion: [facility] odify By: christine villar DateTime : 12/31/19 18 09:15:00 AM Not Available Not Available Not Available benzonata te 100 mg capsule TAKE 1 CAPSULE BY MOUTH THREE TIMES A DAY NEEDED FOR 10 DAYS 09/16 completed Not Available Not Available Not Available chlorprom azine 25 mg tablet take 1 tablet by oral route every 6 hours as needed 06/09 completed Prescrib ed Elsewher e: No [facility]: christine villar DateTime : 03/06/20 18 10:53:58 AM Not Available Not Available Not Available Transderm -Scop 1 mg over 3 days transderm al patch apply 1 patch by transder mal route 12/16 completed Prescrib ed Elsewher e: No Locat ion: [facility] odify By: francesca syed DateTime : 12/02/19 [...] Prescrib ed Elsewher e: No Locat ion: [facility] odify By: tgingric h Ella ter DateTime : 11/04/19 18 09:00:00 AM [...] Prescrib ed Elsewher e: No Locat ion: [facility] odify By: amarabella gallegosunter DateTime : 03/18/20 18 11:56:14 AM Not Available Not Available Not Available Fioricet 50 mg-300 mg-40 mg capsule take 1 - 2 capsule by oral route every 4 hours as needed not to exceed 6 capsules per 24hrs 06/09 completed Prescrib ed Elsewher e: No Locat ion: [facility] odify By: amknatividad gallegosuntloi DateTime : 12/02/19 18 09:45:00 AM Not Available Not Available Not Available Droplet Pen Needle 32 gauge x 5/32 USE 1 EACH DIRECTED ONCE DAILY FOR INJECTIO NS. active Not Available Not Available No t Available Nexium 24HR 20 mg tablet,de layed release 1 po q day 06/06 completed Prescrib ed Elsewher e: No Locat ion: [facility] odify By: tgrickeyric h Ella syed DateTime : 12/24/19 18 [...] Address Organization Details Last Updated DateTime 11/12/2024 40930.55 631 g 31.8 kg/m2 152.4 cm 128 mm[Hg] 72 mm[Hg] Yamile Garcia [facility] 16:55:43 Social History Question Answer Notes LastModified by Organizat ion Details LastModified Time Tobacco Smoking Status Current Every Day Smoker Chuyita Rodriguez tom, [facility] 09/16/2020 12:42:56 What Is Your Level Of Alcohol Consumption? None [email or web address] Information not available 04/06/2024 If You Are , What Was Your Level Of Alcohol Consumption Prior To ? Occasional [email or web address] Information not available 04/06/2024 Are You Blind Or Do You Have Difficulty Seeing? No [email or web address] Information not available 04/06/2024 What Is Your Level Of Caffeine Consumption? Occasional [email or web address] Information not available 04/06/2024 How Much Tobacco Do You Chew? None Information not available 06/11/2024 In The 14 Days Before Symptom Onset, Have You Had Close Contact With A Laboratory-confir med COVID-19 While That Case Was Ill? No [email or web address] Information not available 04/06/2024 In The 14 Days Before Symptom Onset, Have You Had Close Contact With A Person Who Is Under Investigation For COVID-19 While That Person Was Ill? No Information not available 04/06/2024 Have You Been To An Area Known To Be High Risk For COVID-19? No [email or web address] Information not available 04/06/2024 Are You Deaf Or Do You Have Serious Difficulty Hearing? No Information not available 04/06/2024 What Type Of Diet Are You Following? REGULAR [email or web address] Information not available 04/06/2024 Do You Or Have You Ever Used E-cigarettes Or Vape? Never Used Electronic Cigarettes Information not available 10/27/2020 What Is The Highest Grade Or Level Of School You Have Completed Or The Highest Degree You Have Received? [id number] [email or web address] Information not available 06/11/2024 Are There Any Guns Present In Your Home? No [email or web address] Information not available 06/11/2024 What Was The Date Of Your Most Recent Tobacco Screening? 11/12/2024 [email or web address] Information not available 11/12/2024 Do You Use Protection During Sex? No [email or web address] Information not available 06/11/2024 Do You Use Your Seat Belt Or Car Seat Routinely? Yes [email or web address] Information not available 04/06/2024 Are You Sexually Active? Yes [email or web address] Information not available 04/06/2024 Do You Have Smoke And Carbon Monoxide Detectors In Your Home? Yes [email or web address] Information not available 04/06/2024 At What Age Did You Start Smoking Tobacco? 12 [email or web address] Information not available 06/11/2024 Do You Or Have You Ever Used Smokeless Tobacco? Never Used Smokeless Tobacco Information not available 10/27/2020 How Much Tobacco Do You Smoke? 0.25 PPD [email or web address] Information not available 06/11/2024 Do You Feel Stressed (tense, Restless, Nervous, Or Anxious, Or Unable To Sleep At Night)? [id number] [email or web address] Information not available 04/06/2024 Do You Use Any Illicit Or Recreational Drugs? No [email or web address] Information not available 06/11/2024 Do You Use Sunscreen Routinely? Yes [email or web address] Information not available 04/06/2024 How Many Years Have You Smoked Tobacco? 21 [email or web address] Information not available 06/11/2024 Have You Used IV Drugs? No [email or web address] Information not available 06/11/2024 Sex: Unknown Functional Status Question Answer Note LastModified by Organizat ion Details LastModified Time Do you have difficulty walking or climbing stairs? No [email or web address] Information not available 04/06/2024 Are you able to walk? YESWOREST [email or web address] Information not available 04/06/2024 Are you able to care for yourself? Yes [email or web address] Information not available 04/06/2024 Do you have difficulty dressing or bathing? No Information not available 04/06/2024 What is your exercise level? Occasional [email or web address] Information not available 04/06/2024 Mental Status None recorded. Family History Relationship Description Onset Age of this Age Resolved Age Notes LastModified by Organization Details LastModified Time Mother Asthma [email or web address] Not available 09/16/2020 12:42:52 Medical History Condition Response Allergies (Food, seasonal, environmental ) Y Other Y Blood Transfusion N Drug/Latex Allergies/Reactions Y Breast Cancer N Dermatologic Disorders N Lung Disease N [...] SNOMED-CT Code Diagnosis ICD10 Code Diagnosis Note [id number] Nichol Sarmad [facility] [address] [address] 10/22/2024 14:48:30 10/25/2024 06:48:32 Small for gestational age fetus 853579225 O36.5930 O24.414 Z3A.35 [id number] OPHELIA SHER MD [facility] [address] [address] 10/22/2024 14:49:10 10/22/2024 16:33:15 growth restriction 38561314 O36.5999 Gestationa l diabetes mellitus class A2 31929128 O24.414 Bipolar disorder 1608087 4 F31.9 Asthma 388918781 J45.90 9 Gestation period, 35 weeks 49006130 Z3A.35 [id number] Jessi Gardner [facility] [address],[place] [address] 10/29/2024 15:43:41 11/01/2024 15:11:18 growth restriction 30566416 O36.5999 [id number] [facility] [address],[place] [address] 10/29/2024 15:45:06 11/03/2024 23:28:31 Small for gestational age fetus 078213176 O36.5930 O24.414 Z3A.36 [id number] Morelia Clarke [facility] [address],[place] [address] 10/29/2024 15:45:30 11/02/2024 05:30:08 screening 252154192 Z36.85 [id number] [facility] [address],[place] [address] 11/05/2024 13:14:08 11/05/2024 13:55:53 Small for gestational age fetus 156577410 O36.5930 O24.414 Z3A.37 [id number] CACHORRO Brantley [facility] [address],[place] [address] 11/05/2024 13:49:04 11/05/2024 14:56:48 growth restriction 08521388 O36.5999 [id number] Morelia Clarke [facility] [address],[place] [address] 11/05/2024 13:49:15 11/05/2024 15:34:40 Gestation period, 37 weeks 07005346 Z3A.37 [id number] [facility] [address],[place] [address] 11/12/2024 15:45:26 11/12/2024 17:32:29 Small for gestational age fetus 979484889 O36.5930 O24.414 Z3A.38 [id number] [facility] [address] [address] 11/12/2024 15:45:37 11/12/2024 17:22:12 Gestation period, 38 weeks 72749139 Z3A.38 Health Concerns Section Related Observation LastModified by Organization Detai ls LastModified Time None Recorded Concern Status LastModified by Organization Details LastModified Time None Recorded Payers Encounter Date Sequence Insurance Name Policy Number Policy Chester Covered Member ID Chester Member ID Guarantor Name 11/12/2024 1 [employer] (PPO) [id number] Sunshine Ramirez [id number] Sunshine Ramirez OBGyn Episode Ob Episode Information Episode Created Date Number of Fetuses Patient Bloodtype Patient rh Status Prepregnancy Weight lbs Domestic Partner Domestic Partner Phone Father Name Maintenance Supervisor Status 05/14/20 24 1 A Positive 124 OPEN Fetus Data First Name Last Name Admitted to NICU Weight (g) Sex Living Outcome Pediatric Complications Fetus ID Race Codes Race Delivery Type [id number] Problems Problem Notes 09/08 MFM consult recommendat ions: Revise EDC 6-65-18Mdcvs BP carefully, obtain baseline CMP and quantitative proteinuriaFollow-up U/S for growth & AFV & development every 4 weeksAntenatal testing (e.g. NST+BPP or NST+JERICHO) if later indicatedDelivery planning (timing, mode, location): too early to determine at present [facility] 10/08/24 230 Growth us Problem Name Start Date End Date Resolution Snomed Code Not e Mixed anxiety and depressive disorder 063409781 COVID-19 09/16/2024 156466373 bASA lucita y, serial growth US - Scheduled MFM 10/08/24 US Bipolar disorder 98292161 Impaired glucose tolerance 09/06/2024 0457934 09/06 elevated 1 hr gct checking bs QID Gestational diabetes mellitus 10/08/2024 66427410 DE referral fax ed - DT completed 10/07/24 clinical notes scanned in10/22 Lantus pen 5u@ HS increased to 7u 10/26 Asthma 773910903 growth restriction 87041434 Advanced maternal age 706766880 possibly depend ing on delivery date MFM confirmed EDC 11-21-24 Marijuana user 05/14/2024 [id number] Barrie Calculation Initial Barrie Date Initial Exam [...] Weight in lbs Pre/Post Dialysis Refused Weight 125.129924251985 BP Diastolic BP Location Tested BP Systolic [...] Type Weight in lbs Pre/Post Dialysis Refused 133.195237082844 BP Diastolic BP Location Tested BP Systolic [...] Type Weight in lbs Pre/Post Dialysis Refused 139.982664255002 BP Diastolic BP Location Tested BP Systolic [...] Type Weight in lbs Pre/Post Dialysis Refused 145.0545126544 BP Diastolic BP Location Tested BP Systolic [...] Type Weight in lbs Pre/Post Dialysis Refused 150.156779265400 BP Diastolic BP Location Tested BP Systolic [...] Type Weight in lbs Pre/Post Dialysis Refused 152.058495228854 BP Diastolic BP Location Tested BP Systolic BP Type 80 121 Fetus Heart Rate Present Fetus Movement A Yes Comments Patient is having pain, Bh c ontractions, discharge, swelling,nausea and vomiting. reviewed bs log, rule in for GDM, has been trying to alter diet doing ok, will refer to [facility] for formal diet teaching discussed no juice soda, reduce carbs, +FM, precautions and education f/u 2 weeks Flowsheet Date 10/08/2024 Rosales Score Blood Edema Fundus Height Fundus Units Glucose Ketones Leukocytes Nitrite Labor Signs Protein Cervic Dilation Cervic Effacement Cervic Station Type Weight in lbs Pre/Post Dialysis Refused Weight 158.532359670393 BP Diastolic BP Location Tested BP Systolic BP Type 81 125 Fetus Heart Rate Present Fetus Movement A Yes Comments Patient is having some cramp ing, swelling, nausea and vomiting. +FM, mfm us today, doing well, had diabetic teaching at [facility]. handout given reviewed blood sugars continue diet [...] Weight in lbs Pre/Post Dialysis Refused Weight 160.296842174771 BP Diastolic BP Location Tested BP Systolic [...] Weight in lbs Pre/Post Dialysis Refused Weight 164.582859370457 BP Diastolic BP Location Tested BP Systolic [...] Type Weight in lbs Pre/Post Dialysis Refused 164.12504004690 BP Diastolic BP Location Tested BP Systolic [...] Type Weight in lbs Pre/Post Dialysis Refused 163.009784218395 BP Diastolic BP Location Tested BP Systolic [...]
[2024-11-12 17:40] LABS: Basophils Absolute Auto 0.1 K/mm3 (0.0-0.1); Basophils Percent Auto 0.5 % (0.2-1.2); Eosinophils Absolute Auto 0.2 K/mm3 (0-0.3); Eosinophils Percent Auto 1.1 % (0-4.4); Hematocrit 36.1 % (37.0-47.0); Hemoglobin 12.2 g/dL (12.0-15.0); Immature Granulocyte Absolute 0.07 K/mm3 (0.00-0.031); Immature Granulocyte Percent A 0.4 % (0-0.5); Lymphocytes Percent Auto 15.2 % (18.3-44.2); Mean Corpuscular HGB Conc 33.8 g/dl (32-36); Mean Corpuscular Hemoglobin 29.2 pg (26-34); Mean Corpuscular Volume 86.4 fl (80-100); Mean Platelet Volume 10.4 fl (7.4-10.4); Monocytes Absolute Auto 1.1 K/mm3 (0.1-0.6); Monocytes Percent Auto 6.8 % (2.6-8.5); Neutrophils Absolute Auto 12.5 K/mm3 (1.3-6.7); Platelet Count Result 176 k/mm3 (150-375); Red Blood Count 4.18 M/mm3 (4.2-5.4); Red Cell Distribution Width 13.9 % (11.5-14.5); White Blood Count 16.4 K/mm3 (4.5-10.0)
[2024-11-12] MEDS: LACTATED RINGERS 1,000 ML 125 ML IV CONT (18:30)
[2024-11-12 18:34] LABS: HIV 1/2 Ab P24 Ag Result Negative (Negative)
--- NOTE | 2024-11-12 19:04 | P.PNAN_ITS ---
Anes - Eval Pre Procedure Procedure: Labor Pain Management Date/Time: 11/12/24 19:04 Surgeon: Jackie Preop Diagnosis: pain during labor Pre Op Diagnosis: Induction of Labor Patient Data Age: 33 Gender: F Height: Weight: Last Vital Signs Temp 98.2 F 11/12/24 18:20 Pulse 81 11/12/24 19:04 BP 137/102 H 11/12/24 19:04 Pulse Ox 97 11/12/24 19:02 Allergies Allergy/AdvReac Type Severity Reaction Status Date / Time amoxicillin Allergy Intermediate Rash Verified 10/30/24 15:22 Penicillins Allergy Intermediate Rash Verified 10/30/24 15:22 Home Medications ?Medication ?Instructions ?Recorded ?Confirmed ?Type albuterol 90 mcg/actuation aerosol 2 mcg inhalation PRN PRN SOB 10/16/20 10/30/24 History inhaler insulin glargine 100 unit/mL 7 unit subcut QPM 10/30/24 10/30/24 History subcutaneous solution (Lantus U-100 Insulin) vit no.95-ferrous 1 tablet PO DAILY 10/30/24 10/30/24 History fumarate 28 mg-folic acid 800 mcg tablet () Laboratory Tests 11/12/24 17:03 WBC 16.4 H K/mm3 (4.5-10.0) RBC 4.18 L M/mm3 (4.2-5.4) Hgb 12.2 D g/dL (12.0-15.0) Hct 36.1 L % (37.0-47.0) MCV 86.4 fl (80-100) MCH 29.2 pg (26-34) MCHC 33.8 g/dl (32-36) RDW 13.9 % (11.5-14.5) Plt Count 176 k/mm3 (150-375) MPV 10.4 fl (7.4-10.4) Immature Gran % (Auto) 0.4 % (0-0.5) Neut % (Auto) 76.0 H % (45.5-73.1) Lymph % (Auto) 15.2 L % (18.3-44.2) Gregg % (Auto) 6.8 % (2.6-8.5) Eos % (Auto) 1.1 % (0-4.4) Baso % (Auto) 0.5 % (0.2-1.2) Lymph # (Auto) 2.50 K/mm3 (0.9-3.2) Gregg # (Auto) 1.1 H K/mm3 (0.1-0.6) Eos # (Auto) 0.2 K/mm3 (0-0.3) Baso # (Auto) 0.1 K/mm3 (0.0-0.1) Abs Immat Gran (auto) 0.07 H K/mm3 (0.00-0.031) Absolute Neuts (auto) 12.5 H K/mm3 (1.3-6.7) Absolute Nucleated RBC 0.000 K/mm3 (0.0-0.012) Nucleated RBC % 0.0 % (0.0-0.2) RPR Pending HIV 1&2 Ab/P24 Ag 4thGn Negative (Negative) Blood Type A Positive Antibody Screen Negative Patient hx anesthesia problems: none Family hx anesthesia problems: none Results Review: All pre-operative results and documents have been reviewed as part of the pre-operative evaluation. [facility] Past Medical History Medical History Asthma Bipolar 1 disorder GERD (gastroesophageal reflux disease) Social History Social History Smoking packs per day: 0.5 Smoking cigarettes per day: 10.0 Years smoked: 16 Smoking pack-years: 8.00 Smoking status: Current every day smoker Tobacco type: cigarettes Additional smoking assessment comments: 1/2 ppd x 17 years Alcohol use details: 2 drinks a month Substance use: current Substance use type: marijuana Other substance usage details: smokiing on occasion Last use: 10/14/20 Living arrangements: with family Spiritual care concerns: No Exam Day of Procedure 11/12/24 19:04
[2024-11-12 19:52] LABS: Rapid Plasma Reagin Non-Reactive (NonReactive)
[2024-11-12] MEDS: OXYTOCIN 30 UNITS/NS 500 ML 30 UNITS/500 ML BAG 999 UNITS IV CONT (20:40)
--- NOTE | 2024-11-12 20:47 | WPDOBADMIT ---
Obstetrics - Admit Note Admission Note: record reviewed. No pertinent additions to the history and/or any subsequent changes in the physical findings that are not consistent with the expected course of the were found. Additions to the history and/or subsequent changes in the physical findings follow. IOl SVE /-2 AROM clear fluid, IUGR and GDM
--- NOTE | 2024-11-12 20:48 | PM.OBPRVD ---
OB - Vaginal Delivery Note Procedure Delivery date: 11/12/24 Events: Gestational Diabetes and Intrauterine Growth Restriction (IUGR) Induction method: AROM Delivery monitor: External FHT and External Uterine Route of delivery: Episiotomy description: None Laceration Description: None Specimen: Yes Quantitative Blood Loss (ml): 90 Anesthesia type: Epidural Disposition: Floor Complications: No immediate complications Baby Date of : 11/12/24 Time of : 20:37 Gestational Age by Date: 38 Infant gender: Female presentation: vertex position: Left Occiput Anterior Placenta delivery description: Spontaneous Cord Vessel Description: 3 Vessels and Nuchal Cord (x1) score one minute: 9 score five minutes: 9 Narrative: mother and baby in stable condition
[2024-11-12] MEDS: OXYTOCIN 30 UNITS/NS 500 ML 30 UNITS/500 ML BAG 125 UNITS IV CONT (21:15)
[2024-11-12] MEDS: ACETAMINOPHEN 325 MG TABLET 650 MG PO (21:15)
[2024-11-12] MEDS: IBUPROFEN 600 MG TABLET PO (22:40)
--- NOTE | 2024-11-12 23:47 | OBPPTRN ---
Patient transferred to post room #288 via wheelchair. Support person present. Oriented to unit, room, information board, rooming in, admission packet and security measures. Patient verbalizes understanding.
[2024-11-13] MEDS: HYDROcodone/acetaminophen (*CRX) 10-325 MG TABLET 1 TAB PO ×4 (01:52→21:37)
[2024-11-13 05:30] VITALS: BP 134/69; PULSE 80; RESP 16; TEMP 37.1; O2SAT 98
--- NOTE | 2024-11-13 06:00 | OBPPTRN ---
Patient transferred to post room #281 via wheelchair. Support person present. Oriented to unit, room, information board, rooming in, admission packet and security measures. Patient verbalizes understanding.
[2024-11-13 07:07] LABS: Hematocrit 35.3 % (37.0-47.0); Hemoglobin 11.8 g/dL (12.0-15.0)
[2024-11-13 07:15] VITALS: BP 104/69; PULSE 71; RESP 16; TEMP 36.3; O2SAT 96
[2024-11-13] MEDS: DOCUSATE SODIUM 100 MG CAPSULE PO ×2 (08:20→18:05)
[2024-11-13] MEDS: MULTIVIT/MIN/PREN/FOL AC/IRON TABLET 1 TAB PO (08:20)
--- NOTE | 2024-11-13 08:21 | PM.OBPNVD ---
OB - PN: Subj Subjective Date/time seen: 11/13/24 08:21 Patient comments: no complaints, pain well controlled, incisional pain, tolerating diet and flatus present OB - PN: Obj Data Labs 11/13/24 06:48 Labs: Laboratory Results - last 24 hr 11/12/24 11/13/24 17:03 06:48 WBC 16.4 H RBC 4.18 L Hgb 12.2 D 11.8 L Hct 36.1 L 35.3 L MCV 86.4 MCH 29.2 MCHC 33.8 RDW 13.9 Plt Count 176 MPV 10.4 Immature Gran % (Auto) 0.4 Neut % (Auto) 76.0 H Lymph % (Auto) 15.2 L Hutchinson % (Auto) 6.8 Eos % (Auto) 1.1 Baso % (Auto) 0.5 Lymph # (Auto) 2.50 Hutchinson # (Auto) 1.1 H Eos # (Auto) 0.2 Baso # (Auto) 0.1 Abs Immat Gran (auto) 0.07 H Absolute Neuts (auto) 12.5 H Absolute Nucleated RBC 0.000 Nucleated RBC % 0.0 RPR Non-reactive HIV 1&2 Ab/P24 Ag 4thGn Negative Blood Type A Positive Antibody Screen Negative OB - PN A/P Plan day: 1 Plan: routine care Comments: No problems, routine care Time Spent With Patient Time: Total time spent is greater than 50% in coordination of care (as documented) at patient's floor/unit and/or counseling patient: Exam Const: General: comfortable, no acute distress and alert Resp: Effort & Inspection: normal respiratory effort Auscultation: no crackles, no rales and no rhonchi Cardio: Rate: regular rate Heart sounds: no click, no murmurs and no rubs GI: Inspection: non-distended GI Palp: No Tenderness to palpation present (GI) Auscultation: normal bowel sounds Other: Incision - CDI Extrem: General: normal to inspection, no pedal edema and no calf tenderness
[2024-11-13 09:24] VITALS: BMI 32.6
--- NOTE | 2024-11-13 10:00 | PC.NURSE ---
1000- Mother called out for assistance. It has been three hours since the last feeding and baby is sleepy. We worked to awaken infant without success. She was in a deep sleep state. Encouraged skin to skin and observing for early feeding cues. We will try again in 30 minutes. Reported to primary RN. 1040- still sleepy but mom said she had started to stir. We moved her to the crib and undressed her and used some drops of formula to entice her to the breast. Baby started to make some effort to latch but was having difficulty because she is a tongue sucker. Every time she would give an open mouth, her tongue was up and not able to get under the breast. We used some chin traction and multiple attempts but did finally get a good latch. Baby suckled eagerly and mom was advised to allow baby to eat until she was satisfied. Instructed mom to call out if baby doesn't stay latched or if she needs assistance switching sides. Encouraged additional supplementation with formula unless baby has a very good feeding. Mom agrees to call out; reported to primary RN. 1140- Primary RN requested assistance with bottle feeding baby because she had only fed for 5 minutes at the breast and mom had attempted to bottle feed but was unable to get baby to take any formula. We used a preemie nipple for the feeding but may try a slow flow nipple at the next feeding as baby is disorganized and has a sensitive gag reflex. Mom was shown how to use chin support to encourage baby to make a seal around the nipple. Baby has some very wide jaw excursions as she attempts to latch to the bottle. Once she makes a seal she does a fair job at maintaining it with chin support. Baby took 11mls of formula and then was gaggy with a little spit up so we stopped there. Mom is agreeable to trying a pacifier to encourage baby to put her tongue down when latching and to assist in strengthening her jaw muscles. Reported to primary RN. 1230- Mom requested a breast pump through insurance and a Medela pump in style was given for her use here in the hospital and at home. Primary RN aware.
[2024-11-13 12:30] VITALS: BP 121/84; PULSE 68; RESP 16; TEMP 36.8; O2SAT 96
[2024-11-13] MEDS: IBUPROFEN 600 MG TABLET PO (12:46)
[2024-11-13] MEDS: LANOLIN (LANSINOH) 7.5 GM CREAM 1 APPLIC TOPICAL (12:46)
--- NOTE | 2024-11-13 15:30 | PC.NURSE ---
Infant is [high risk for ineffective ] due to SGA and has not fed [effectively at breast today]. Initiated a feeding plan for with formula supplementation. Mother is instructed to pump (with her insurance pump given to her here at the hospital) after every or attempt. Mother should only attempt for 10-15 minutes at breast before moving on to supplementation. Support person can feed baby 15ml of pumped milk or formula while mother is pumping. Instructed parents on keeping breastmilk at the bedside until the next feeding or for up to 4 hours. Breast pump instructions given on cleaning, care, usage, that there should be no pain, pumping schedule for milk production, collection, and storage of human milk. Patient was assessed for correct placement, flange size, to pump for adequate milk production every 3 hours and 1-2 times at night (8 times in 24 hours). Assisted mother to bottle feed 11ml, was difficult to feed with a disorganized and weak suck and a sensitive gag reflex. Preemie nipple used as her suck was not strong enough to remove milk from the slow flow nipple. Reported to Primary RN.?
[2024-11-13] MEDS: NEOMYCIN/POLYMYXIN/BACITRACIN OINTMENT 15 GM TUBE 1 APPLIC TOPICAL (18:05)
[2024-11-13] MEDS: CEPHALEXIN 500 MG CAPSULE PO (18:05)
[2024-11-13] MEDS: ONDANSETRON HCL ODT 4 MG TABLET PO (19:18)
[2024-11-13 20:10] VITALS: BP 128/76; PULSE 67; RESP 16; TEMP 36.8; O2SAT 99
[2024-11-14] MEDS: IBUPROFEN 600 MG TABLET PO ×3 (00:50→22:07)
[2024-11-14] MEDS: HYDROcodone/acetaminophen (*CRX) 10-325 MG TABLET 1 TAB PO ×3 (02:19→12:50)
[2024-11-14 08:20] VITALS: BP 120/66; PULSE 65; RESP 16; TEMP 36.6; O2SAT 99
[2024-11-14] MEDS: DOCUSATE SODIUM 100 MG CAPSULE PO ×2 (08:29→15:39)
[2024-11-14] MEDS: CEPHALEXIN 500 MG CAPSULE PO ×2 (08:29→16:58)
[2024-11-14] MEDS: MULTIVIT/MIN/PREN/FOL AC/IRON TABLET 1 TAB PO (08:29)
[2024-11-14] MEDS: NEOMYCIN/POLYMYXIN/BACITRACIN OINTMENT 15 GM TUBE 1 APPLIC TOPICAL ×2 (09:36→16:59)
--- NOTE | 2024-11-14 11:37 | P.PNOB_ITS ---
OB - PN: Subj Subjective Date/time seen: 11/14/24 11:37 Patient comments: no complaints, pain well controlled and tolerating diet OB - PN: Obj Data Labs 11/13/24 06:48 OB - PN A/P Plan day: 2 Plan: routine care and discharge home Time Spent With Patient Time: Total time spent is greater than 50% in coordination of care (as documented) at patient's floor/unit and/or counseling patient: Exam 2 Const: General: comfortable and no acute distress Resp: Effort & Inspection: normal respiratory effort Auscultation: no rales, no rhonchi and no wheezes Cardio: Rate: regular rate Heart sounds: no click, no murmurs and no rubs GI: GI Palp: Yes Soft to palpation and No Tenderness to palpation present (GI) Auscultation: normal bowel sounds Extrem: General: normal to inspection, no pedal edema and no calf tenderness
--- NOTE | 2024-11-14 11:39 | PM.OBDSVD ---
DS: Admitting Diagnosis Discharge Date November 14, 2024 Admitting Diagnosis term DS: Discharge Diagnosis Discharge Diagnosis (1) Post term , delivered: Code(s): O48.0 - Post-term Status: Acute OB - DS: Summary OB Procedures : None OB Procedures Intrapartum: Spontaneous Vag Delivery OB Procedures: : None Peripartum Data Laceration Description: None Episiotomy description: None Time Spent with Patient Time attestation: Total time spent providing and/or coordinating discharge services: Discharge Plan Discharge Discharging Clinician: Rubio Mejia Patient Disposition: Home, Self-Care Activity: pelvic rest Diet: regular Patient Instructions: Antibiotic Form Patient Language: Vietnamese Stand Alone Forms: General Discharge Information Follow-up/Referrals: Rubio Mejia MD [Physician] - Discharge Medications: Continued albuterol 90 mcg/actuation Aerosol 2 mcg INHALATION PRN PRN (Reason: SOB) PNV cmb#95-ferrous fumarate-FA [] 28 mg iron- 800 mcg tablet 1 tablet PO DAILY insulin glargine [Lantus U-100 Insulin] 100 unit/mL solution 7 unit subcut QPM Date of admission: 11/12/24 16:40 Primary Care Provider: Meredith,Ana Maria [place] Admitting Provider: Rubio Mejia Attending physician on admission: Rubio Mejia Condition: Stable
[2024-11-14] MEDS: HYDROcodone/acetaminophen (*CRX) 5-325 MG TABLET 1 TAB PO (16:58)
[2024-11-14] MEDS: TETANUS,DIPHTHERIA,AC PERTUSSIS ADULT (0.5 ML) BOOSTRIX IM (16:59)
[2024-11-16 14:57] VITALS: BP 138/86; PULSE 91; RESP 18; TEMP 36.8; O2SAT 100
== END 2024-11-14 22:14 | disposition home or self-care (01) | DRG 807 ==
LOC: ANHLDR 17:00 → ANHOB2 11-13 01:02
PROVIDERS: Admitting Provider Obstetrics & Gynecology; PCP Family Medicine; Referring Provider Advanced Practice Midwife; Visit Provider Obstetrics & Gynecology
DX: O24.429 Gestational diabetes mellitus in childbirth, unspecified control (principal); Z37.0 Single live birth; O36.5930 Maternal care for other known or suspected poor fetal growth, third trimester, not applicable or unspecified; O62.3 Precipitate labor; O69.81X0 Labor and delivery complicated by cord around neck, without compression, not applicable or unspecified; Z3A.38 38 weeks gestation of pregnancy
CPT/HCPCS: 36415; 85014; 85018; 85025; 86592; 86703; 86850; 86900; 86901; 88307; 90715; A9270; G0432; J2590; J2795; J7120